=== PATIENT | male | born 1950 | race Caucasian/White ===

== ENCOUNTER 2018-11-17 21:47 | Emergency (ER) | payer MEDICARE, MEDICAID, OTHER ==
[~2018-11-17] VITALS: Ht 167.6 cm; Wt 68.2 kg
[2018-11-17 22:16] LABS: BASOPHILS # (AUTO) 0.1 X10'3 (0-0.2); BASOPHILS % (AUTO) 0.7 % (0-1); EOSINOPHILS # (AUTO) 0.2 X10'3 (0-0.9); EOSINOPHILS % (AUTO) 2.1 % (0-6); HEMATOCRIT 44.1 % (42.0-52.0); HEMOGLOBIN 14.5 g/dl (14.0-17.9); LYMPHOCYTES # (AUTO) 1.4 X10'3 (1.1-4.8); LYMPHOCYTES % (AUTO) 19.8 % (21-51); MEAN CORPUSCULAR HEMOGLOBIN 32.4 PG (27.0-31.0); MEAN CORPUSCULAR HGB CONC 32.8 g/dL (33.0-36.5); MEAN CORPUSCULAR VOLUME 98.8 FL (78-98); MEAN PLATELET VOLUME 7.5 FL (7.4-10.4); MONOCYTES # (AUTO) 0.7 X10'3 (0-0.9); MONOCYTES % (AUTO) 9.3 % (2-12); NEUTROPHILS # (AUTO) 4.9 X10'3 (1.8-7.7); NEUTROPHILS % (AUTO) 68.1 % (42-75); PLATELET COUNT 236 X10'3 (140-440); RED BLOOD COUNT 4.46 X10'6 (4.70-6.10); RED CELL DISTRIBUTION WIDTH 15.5 % (11.5-14.5); WHITE BLOOD COUNT 7.2 X10'3 (4.5-11.0)
[2018-11-17 22:34] LABS: PARTIAL THROMBOPLASTIN TIME 26 SECONDS (22-32)
[2018-11-17] MEDS ORDERED: methylPREDNISolone sod succ 125mg/2ml vial IV ONE (22:40)
[2018-11-17] MEDS ORDERED: ipratropium/albuterol 3ml nebule NEB ONE (22:40)
[2018-11-17] MEDS ORDERED: normal saline 1000ML IV soln IVB ONE ×2 (22:40→23:40)
[2018-11-17 22:41] LABS: ANION GAP 4 (8-16); BLOOD UREA NITROGEN 12 MG/DL (7-18); BUN/CREATININE RATIO 15.2 (5.4-32.0); CALCIUM 7.8 MG/DL (8.5-10.1); CHLORIDE 108 MMOL/L (99-107); CREATININE 0.79 MG/DL (0.60-1.10); GLUCOSE 147 MG/DL (70-104); POTASSIUM 3.6 MMOL/L (3.5-5.1); SODIUM 146 MMOL/L (135-145); TOTAL CARBON DIOXIDE 34.2 MMOL/L (24-32); eGFR > 90 ML/MIN
[2018-11-17 22:42] LABS: ALANINE AMINOTRANSFERASE 37 U/L (12-78); ALBUMIN 3.4 G/DL (3.4-5.0); ALBUMIN/GLOBULIN RATIO 1.1 (1.1-1.5); ALKALINE PHOSPHATASE 63 IU/L (46-116); ASPARTATE AMINO TRANSFERASE 18 U/L (10-37); TOTAL PROTEIN 6.4 G/DL (6.4-8.2)
--- NOTE | 2018-11-18 00:49 | NUR ---
CONTACTED [facility] WHO WILL SEND SOMEONE WITH A PORTABLE O2 FOR PT.
[2018-11-18 02:03] VITALS: BP 149/81
== END 2018-11-18 02:05 | disposition home or self-care (01) ==
LOC: ER 21:48
DX: G43.909 Migraine, unspecified, not intractable, without status migrainosus (principal); J43.9 Emphysema, unspecified; F12.90 Cannabis use, unspecified, uncomplicated; M81.0 Age-related osteoporosis without current pathological fracture; Z98.890 Other specified postprocedural states; Z88.8 Allergy status to other drugs, medicaments and biological substances; Y04.0XXA Assault by unarmed brawl or fight, initial encounter; Y93.89 Activity, other specified; Y92.89 Other specified places as the place of occurrence of the external cause; Y99.8 Other external cause status
CPT/HCPCS: 36415; 70450; 71045; 80053; 84484; 85025; 85610; 85730; 93005; 94640; 94760; 96374; 99284; J2930; J7030

== ENCOUNTER 2019-05-18 22:19 | Inpatient (IN) | payer MEDICARE, MEDICAID ==
[~2019-05-18] VITALS: Ht 177.8 cm; Wt 86.0 kg
[2019-05-18 22:45] LABS: ABG BASE EXCESS 4.3 mmol/L (-2.0-3.0); ABG OXYGEN SATURATION 98.3 % (95-98); ABG PCO2 (T) 96.2 mmHg (35.0-45.0); ABG PH (T) 7.191 (7.350-7.450); ABG PO2 (T) 132.3 mmHg (83-108); FCOHb 2.1 % (0.5-1.5); FMetHb 0.2 % (0.3-1.12); MINUTE VOLUME 13 L/min; RESPIRATORY RATE 12 b/min; RESPIRATORY RATE (OBSERVED) 35 b/min; TOTAL HEMOGLOBIN 14.1 G/dl (14.0-17.9)
[2019-05-18] MEDS ORDERED: ondansetron/PF 4mg/2ml inj IV ONE (22:45)
[2019-05-18 22:57] LABS: BASOPHILS # (AUTO) 0.1 X10'3 (0-0.2); BASOPHILS % (AUTO) 0.5 % (0-1); EOSINOPHILS # (AUTO) 0.1 X10'3 (0-0.9); EOSINOPHILS % (AUTO) 0.9 % (0-6); HEMATOCRIT 41.4 % (42.0-52.0); HEMOGLOBIN 13.5 g/dl (14.0-17.9); LYMPHOCYTES # (AUTO) 1.8 X10'3 (1.1-4.8); LYMPHOCYTES % (AUTO) 16.3 % (21-51); MEAN CORPUSCULAR HEMOGLOBIN 31.3 PG (27.0-31.0); MEAN CORPUSCULAR HGB CONC 32.7 g/dL (33.0-36.5); MEAN PLATELET VOLUME 7.3 FL (7.4-10.4); MONOCYTES # (AUTO) 1.1 X10'3 (0-0.9); MONOCYTES % (AUTO) 9.5 % (2-12); NEUTROPHILS # (AUTO) 8.2 X10'3 (1.8-7.7); NEUTROPHILS % (AUTO) 72.8 % (42-75); PLATELET COUNT 294 X10'3 (140-440); RED BLOOD COUNT 4.31 X10'6 (4.70-6.10); RED CELL DISTRIBUTION WIDTH 15.4 % (11.5-14.5); WHITE BLOOD COUNT 11.2 X10'3 (4.5-11.0)
[2019-05-18 23:07] LABS: ALANINE AMINOTRANSFERASE 28 U/L (12-78); ALBUMIN 3.5 G/DL (3.4-5.0); ALKALINE PHOSPHATASE 97 IU/L (46-116); ANION GAP 5 (8-16); ASPARTATE AMINO TRANSFERASE 22 U/L (10-37); BILIRUBIN,TOTAL 0.5 MG/DL (0.1-1.0); BLOOD UREA NITROGEN 9 MG/DL (7-18); CALCIUM 8.5 MG/DL (8.5-10.1); CHLORIDE 103 MMOL/L (99-107); GLUCOSE 141 MG/DL (70-104); POTASSIUM 4.1 MMOL/L (3.5-5.1); SODIUM 142 MMOL/L (135-145); TOTAL CARBON DIOXIDE 34.1 MMOL/L (24-32); TOTAL PROTEIN 7.1 G/DL (6.4-8.2); eGFR > 90 ML/MIN
[2019-05-18] MEDS ORDERED: CefTRIAXone/D5W-Rocephin 1gm 50 ML IV ONE (23:20)
[2019-05-18] MEDS ORDERED: azithromycin/NS 500mg/250ml 250 ML IV ONE (23:20)
[2019-05-18] MEDS ORDERED: methylPREDNISolone sod succ 125mg/2ml vial IV ONE (23:20)
[2019-05-18] MEDS ORDERED: normal saline 1000ml 1,000 ML IV ONE (23:20)
[2019-05-18] MEDS ORDERED: proCHLORperazine 10 MG/2 ml inj IV ONE (23:20)
[2019-05-18] MEDS ORDERED: ketorolac trometh. 30mg/ml inj. IV ONE (23:20)
[2019-05-18] MEDS ORDERED: SUMAtriptan succ. 6 MG/0.5ml vial SQ ONE (23:20)
--- NOTE | 2019-05-18 23:45 | NUR ---
RT AT BEDSIDE FOR 2ND ABG. PT HAS BEEN ON BIPAP FOR APROX 1 HR.HR 108, ST ON MONITOR WITH PVCS.
[2019-05-18 23:55] LABS: ABG BASE EXCESS 2.8 mmol/L (-2.0-3.0); ABG HCO3 33.4 mmol/L (22.0-26.0); ABG PCO2 (T) 86.3 mmHg (35.0-45.0); ABG PH (T) 7.206 (7.350-7.450); ABG PO2 (T) 75.6 mmHg (83-108); ALLEN'S TEST Positive; FCOHb 1.9 % (0.5-1.5); FMetHb 0.2 % (0.3-1.12); MINUTE VOLUME 15 L/min; RESPIRATORY RATE 16 b/min; RESPIRATORY RATE (OBSERVED) 35 b/min; TOTAL HEMOGLOBIN 13.5 G/dl (14.0-17.9)
[2019-05-19] MEDS ORDERED: UNABLE TO OBTAIN (00:13)
--- NOTE | 2019-05-19 00:13 | NUR ---
PT STATES [facility] DOES NOT KNOW WHAT HIS CURRENT MEDS ARE BUT THAT HE TAKES HIS MEDS REGULARLY. STATES [facility]ILL[facility] AND AT [facility]. UNBABLE TO COMPLETED MED REC DUE TO THIS.
--- NOTE | 2019-05-19 01:01 | NUR ---
DR OHCOA AT BEDSIDE FOR ADMISSION. UPDATED OF PTS MED REC DELAY PT UNSURE OF HIS CURRENT MEDS. PT REMAINS ON BIPAP AT 35%
--- NOTE | 2019-05-19 01:14 | NUR ---
Pt wanted bipap mask off so he could rinse out his mouth and drink some water. Taken off for 5 minutes to do this. bipap remains at 35% fio2, at 22/5 settings
[2019-05-19] MEDS: normal saline 1000ml 1,000 ML IV SCH (01:46)
[2019-05-19] MEDS ORDERED: albuterol 2.5 MG/3 ML nebule NEB PRN (01:50)
[2019-05-19] MEDS ORDERED: magnesium hydroxide 30ml (MOM) UD suspension PO PRN (01:50)
[2019-05-19] MEDS ORDERED: mag hydrox/Alum hydrox/simeth 30ml oral suspension PO PRN (01:50)
--- NOTE | 2019-05-19 03:19 | NUR ---
Pt placed on hospital bed. Able to stand with sba, but is weak upon standing. Voiding in urinal 200 cc's light ahsan urine. current vss. 35% fia2 on bipap.
[2019-05-19 03:36] LABS: ABG BASE EXCESS 1.2 mmol/L (-2.0-3.0); ABG HCO3 32.3 mmol/L (22.0-26.0); ABG OXYGEN SATURATION 92.7 % (95-98); ABG PH (T) 7.182 (7.350-7.450); ABG PO2 (T) 69.3 mmHg (83-108); ALLEN'S TEST Positive; FCOHb 1.8 % (0.5-1.5); FMetHb 0.2 % (0.3-1.12); FO2Hb 90.8 % (94-100); MINUTE VOLUME 14 L/min; RESPIRATORY RATE 16 b/min; RESPIRATORY RATE (OBSERVED) 25 b/min; TOTAL HEMOGLOBIN 13.6 G/dl (14.0-17.9)
[2019-05-19 05:01] LABS: ABG BASE EXCESS 2.4 mmol/L (-2.0-3.0); ABG HCO3 32.8 mmol/L (22.0-26.0); ABG OXYGEN SATURATION 93.9 % (95-98); ABG PCO2 (T) 83.4 mmHg (35.0-45.0); ABG PH (T) 7.212 (7.350-7.450); ALLEN'S TEST Positive; FCOHb 1.4 % (0.5-1.5); FMetHb 0.1 % (0.3-1.12); FO2Hb 92.5 % (94-100); MINUTE VOLUME 14 L/min; RESPIRATORY RATE 20 b/min; RESPIRATORY RATE (OBSERVED) 23 b/min; TOTAL HEMOGLOBIN 13.3 G/dl (14.0-17.9)
--- NOTE | 2019-05-19 05:22 | NUR ---
Dr. Ocasio at bedside after 4th abg resulted. He is consulting with Dr. Marshall and will consult with Dameon Collado, [employer]. Pt RR 24. Remains on bipap @ 35%.
--- NOTE | 2019-05-19 06:58 | NUR ---
received report from JUSTEN Zee RN
[2019-05-19] MEDS ORDERED: methylPREDNISolone sod succ/PF 40mg inj. IV SCH (08:00)
[2019-05-19] MEDS ORDERED: magnesium 4gm in 100ml NS 100 ML IV PRN (09:10)
[2019-05-19] MEDS ORDERED: potassium CL 10mEq/100ml bag 100 ML IV PRN (09:10)
[2019-05-19] MEDS ORDERED: magnesium Cl slow-release 64mg tablet PO PRN (09:10)
[2019-05-19] MEDS ORDERED: potassium Cl 20 mEq SR tablet PO PRN ×2 (09:10)
[2019-05-19] MEDS ORDERED: VANCOmycin 1250MG/NS 250ml Bag 250 ML IV SCH (09:19)
[2019-05-19 09:30] VITALS: BP 122/68
[2019-05-19] MEDS: heparin, porcine 5000 units/ml vial SQ SCH ×2 (09:39→20:10)
[2019-05-19] MEDS: pantoprazole 40mg Tablet.DR PO SCH (09:39)
[2019-05-19] MEDS: acetaminophen 325mg tablet PO PRN (09:40)
[2019-05-19] MEDS: piperacillin/tazo 3.375gm/50ml 50 ML IV SCH ×2 (09:40→17:17)
[2019-05-19] MEDS ORDERED: iohexol 350MG/ML 100ml bottle IV ONE (10:25)
[2019-05-19 11:00] VITALS: BP 125/65
[2019-05-19] MEDS: ipratropium/albuterol 3ml nebule NEB SCH ×4 (11:36→23:37)
[2019-05-19 11:45] LABS: ABG BASE EXCESS 7.1 mmol/L (-2.0-3.0); ABG HCO3 36.8 mmol/L (22.0-26.0); ABG OXYGEN SATURATION 93.1 % (95-98); ABG PCO2 (T) 80.6 mmHg (35.0-45.0); ABG PH (T) 7.277 (7.350-7.450); ABG PO2 (T) 66.9 mmHg (83-108); ALLEN'S TEST Positive; FLOW 4 L/min; FMetHb 0.2 % (0.3-1.12); RESPIRATORY RATE (OBSERVED) 22 b/min; TOTAL HEMOGLOBIN 13.2 G/dl (14.0-17.9)
--- NOTE | 2019-05-19 11:51 | NUR ---
[phone] MESSAGE: German Thomas Rm 3012B Pc02 80.6 mmhg he refuses Bipap. SERGEY Barrera [phone]
[2019-05-19] MEDS: azithromycin/NS 500mg/250ml 250 ML IV SCH (12:06)
[2019-05-19] MEDS: methylPREDNISolone sod succ 125mg/2ml vial IV SCH ×2 (13:53→20:09)
--- NOTE | 2019-05-19 14:05 | NUR ---
[id number] MESSAGE: German Thomas Rm 3012B needs MD order for BiPaP. He denied using at first, but has reconsidered. SERGEY Barrera ext [phone]
[2019-05-19 15:00] VITALS: BP 122/65
[2019-05-19 18:00] VITALS: BP 128/80
--- NOTE | 2019-05-19 18:54 | NUR ---
Patient in room PCU 3012B. I have received report from SERGEY Haddad and had the opportunity to ask questions and assume patient care. Patient denies CP, SOB, dizziness, n/v, and rated pain 0/10.
--- NOTE | 2019-05-19 18:54 | NUR ---
Problems reprioritized. Patient report given, questions answered & plan of care reviewed with SERGEY Frias.
[2019-05-19] MEDS: lactobacillus rhamnosus 10,000 MMU CELLS/CAPSULE PO SCH (20:10)
[2019-05-19 22:00] VITALS: BP 107/60
[2019-05-19] MEDS ORDERED: CefTRIAXone/D5W-Rocephin 1gm 50 ML IV SCH (23:00)
[2019-05-20] MEDS: VANCOmycin 1250MG/NS 250ml Bag 250 ML IV SCH ×3 (00:01→15:34)
[2019-05-20] MEDS: piperacillin/tazo 3.375gm/50ml 50 ML IV SCH ×3 (01:02→17:12)
[2019-05-20 02:00] VITALS: BP 99/53
[2019-05-20] MEDS: methylPREDNISolone sod succ 125mg/2ml vial IV SCH ×4 (02:17→21:05)
[2019-05-20] MEDS: normal saline 1000ml 1,000 ML IV SCH (02:46)
[2019-05-20] MEDS: ipratropium/albuterol 3ml nebule NEB SCH ×6 (03:35→23:00)
[2019-05-20 06:00] VITALS: BP 119/67
--- NOTE | 2019-05-20 06:06 | NUR ---
Patient in room PCU 3012. I have received report from SERGEY Frias and had the opportunity to ask questions and assume patient care.
--- NOTE | 2019-05-20 06:21 | NUR ---
Problems reprioritized. Patient report given, questions answered & plan of care reviewed with SERGEY Haddad. Patient stable at shift change
[2019-05-20 06:26] LABS: BASOPHILS % (AUTO) 0.1 % (0-1); EOSINOPHILS % (AUTO) 0 % (0-6); HEMATOCRIT 33.7 % (42.0-52.0); HEMOGLOBIN 11.2 g/dl (14.0-17.9); LYMPHOCYTES # (AUTO) 0.4 X10'3 (1.1-4.8); LYMPHOCYTES % (AUTO) 7.2 % (21-51); MEAN CORPUSCULAR HEMOGLOBIN 31.6 PG (27.0-31.0); MEAN CORPUSCULAR HGB CONC 33.3 g/dL (33.0-36.5); MEAN CORPUSCULAR VOLUME 94.9 FL (78-98); MEAN PLATELET VOLUME 7.9 FL (7.4-10.4); MONOCYTES # (AUTO) 0.3 X10'3 (0-0.9); MONOCYTES % (AUTO) 5.7 % (2-12); NEUTROPHILS # (AUTO) 5.3 X10'3 (1.8-7.7); PLATELET COUNT 278 X10'3 (140-440); RED BLOOD COUNT 3.56 X10'6 (4.70-6.10); RED CELL DISTRIBUTION WIDTH 14.9 % (11.5-14.5)
[2019-05-20 07:06] LABS: ABG HCO3 38.6 mmol/L (22.0-26.0); ABG OXYGEN SATURATION 96.3 % (95-98); ABG PCO2 (T) 53.6 mmHg (35.0-45.0); ABG PH (T) 7.475 (7.350-7.450); ABG PO2 (T) 72.1 mmHg (83-108); ALLEN'S TEST Positive; FCOHb 0.1 % (0.5-1.5); FMetHb 0.1 % (0.3-1.12); FO2Hb 96.1 % (94-100); RESPIRATORY RATE 16 b/min; RESPIRATORY RATE (OBSERVED) 19 b/min; TIDAL VOLUME 940 mL; TOTAL HEMOGLOBIN 12.1 G/dl (14.0-17.9)
[2019-05-20 07:09] LABS: ALANINE AMINOTRANSFERASE 25 U/L (12-78); ALBUMIN 2.7 G/DL (3.4-5.0); ALBUMIN/GLOBULIN RATIO 0.8 (1.1-1.5); ALKALINE PHOSPHATASE 74 IU/L (46-116); ANION GAP 4 (8-16); ASPARTATE AMINO TRANSFERASE 13 U/L (10-37); BILIRUBIN,TOTAL 0.3 MG/DL (0.1-1.0); BLOOD UREA NITROGEN 13 MG/DL (7-18); CALCIUM 8.2 MG/DL (8.5-10.1); CHLORIDE 103 MMOL/L (99-107); GLUCOSE 144 MG/DL (70-104); MAGNESIUM 1.7 MG/DL (1.5-2.4); PHOSPHORUS 1.3 MG/DL (2.3-4.5); POTASSIUM 4.1 MMOL/L (3.5-5.1); SODIUM 144 MMOL/L (135-145); TOTAL CARBON DIOXIDE 36.6 MMOL/L (24-32); TOTAL PROTEIN 5.9 G/DL (6.4-8.2); eGFR > 90 ML/MIN
[2019-05-20] MEDS ORDERED: VANCOMYCIN LEVEL IV ONE ×2 (07:30→23:30)
[2019-05-20] MEDS: lactobacillus rhamnosus 10,000 MMU CELLS/CAPSULE PO SCH ×2 (07:37→21:04)
[2019-05-20] MEDS: heparin, porcine 5000 units/ml vial SQ SCH ×2 (07:37→21:05)
[2019-05-20] MEDS: pantoprazole 40mg Tablet.DR PO SCH (07:37)
[2019-05-20] MEDS: ondansetron/PF 4mg/2ml inj IV PRN ×2 (07:49→17:54)
[2019-05-20] MEDS: acetaminophen 325mg tablet PO PRN (10:17)
[2019-05-20 11:00] VITALS: BP 129/71
[2019-05-20] MEDS: azithromycin/NS 500mg/250ml 250 ML IV SCH (11:39)
[2019-05-20] MEDS ORDERED: SUMAtriptan 25 MG tablet PO ONE (12:40)
[2019-05-20 15:00] VITALS: BP 146/90
[2019-05-20 18:00] VITALS: BP 155/77
[2019-05-20] MEDS ORDERED: Melatonin 3mg tablet PO SCH (21:00)
[2019-05-20] MEDS: SUMAtriptan 25 MG tablet PO PRN (21:04)
[2019-05-21] MEDS: VANCOmycin 1250MG/NS 250ml Bag 250 ML IV SCH (00:21)
--- NOTE | 2019-05-21 00:56 | NUR ---
Paged RT The message has been submitted for processing.
[2019-05-21] MEDS: piperacillin/tazo 3.375gm/50ml 50 ML IV SCH ×2 (02:00→09:48)
[2019-05-21] MEDS: methylPREDNISolone sod succ 125mg/2ml vial IV SCH ×3 (02:24→13:54)
--- NOTE | 2019-05-21 03:42 | NUR ---
Patient refused the 2200 and 0200 vital signs. Patient has been belligerent during shift
[2019-05-21] MEDS: normal saline 1000ml 1,000 ML IV SCH (03:46)
[2019-05-21 05:58] LABS: BASOPHILS % (AUTO) 0 % (0-1); EOSINOPHILS % (AUTO) 0 % (0-6); HEMOGLOBIN 11.3 g/dl (14.0-17.9); LYMPHOCYTES # (AUTO) 0.5 X10'3 (1.1-4.8); LYMPHOCYTES % (AUTO) 7.1 % (21-51); MEAN CORPUSCULAR HEMOGLOBIN 31.7 PG (27.0-31.0); MEAN CORPUSCULAR HGB CONC 33.3 g/dL (33.0-36.5); MEAN CORPUSCULAR VOLUME 95.1 FL (78-98); MEAN PLATELET VOLUME 7.6 FL (7.4-10.4); MONOCYTES # (AUTO) 0.4 X10'3 (0-0.9); MONOCYTES % (AUTO) 5.5 % (2-12); NEUTROPHILS # (AUTO) 6.5 X10'3 (1.8-7.7); NEUTROPHILS % (AUTO) 87.4 % (42-75); PLATELET COUNT 288 X10'3 (140-440); RED BLOOD COUNT 3.57 X10'6 (4.70-6.10); RED CELL DISTRIBUTION WIDTH 14.9 % (11.5-14.5); WHITE BLOOD COUNT 7.5 X10'3 (4.5-11.0)
[2019-05-21 06:00] VITALS: BP 129/72
--- NOTE | 2019-05-21 06:00 | NUR ---
Patient in room PCU 3014. I have received report from Rodriguez RINCON and had the opportunity to ask questions and assume patient care. Patient awake, alert and sitting at bedside at shift change. Patient requested to come off Bipap so he could drink his coffee. Patient was placed on 3.5LNC oxygen and offered no complaints at this time. Will continue to monitor
--- NOTE | 2019-05-21 06:15 | NUR ---
Patient finished coffee and requested to be back on Bipap, patient is currently on Bipap and resting, will continue to monitor.
--- NOTE | 2019-05-21 06:41 | NUR ---
Problems reprioritized. Patient report given, questions answered & plan of care reviewed with Julieth Keane Patient stable at shift change
[2019-05-21] MEDS: ipratropium/albuterol 3ml nebule NEB SCH ×2 (06:52→10:19)
[2019-05-21 07:27] LABS: ALANINE AMINOTRANSFERASE 40 U/L (12-78); ALBUMIN 2.7 G/DL (3.4-5.0); ALBUMIN/GLOBULIN RATIO 0.9 (1.1-1.5); ALKALINE PHOSPHATASE 70 IU/L (46-116); ANION GAP 2 (8-16); ASPARTATE AMINO TRANSFERASE 19 U/L (10-37); BILIRUBIN,TOTAL 0.3 MG/DL (0.1-1.0); BLOOD UREA NITROGEN 10 MG/DL (7-18); BUN/CREATININE RATIO 19.6 (5.4-32.0); CALCIUM 8.1 MG/DL (8.5-10.1); CHLORIDE 105 MMOL/L (99-107); CREATININE 0.51 MG/DL (0.60-1.10); GLUCOSE 147 MG/DL (70-104); MAGNESIUM 1.8 MG/DL (1.5-2.4); POTASSIUM 4.1 MMOL/L (3.5-5.1); SODIUM 147 MMOL/L (135-145); TOTAL CARBON DIOXIDE 39.7 MMOL/L (24-32); TOTAL PROTEIN 5.7 G/DL (6.4-8.2); eGFR > 90 ML/MIN
[2019-05-21] MEDS: ondansetron/PF 4mg/2ml inj IV PRN (08:03)
[2019-05-21] MEDS: lactobacillus rhamnosus 10,000 MMU CELLS/CAPSULE PO SCH (08:44)
[2019-05-21] MEDS: heparin, porcine 5000 units/ml vial SQ SCH (08:44)
[2019-05-21] MEDS: azithromycin/NS 500mg/250ml 250 ML IV SCH (08:44)
[2019-05-21] MEDS: pantoprazole 40mg Tablet.DR PO SCH (08:50)
[2019-05-21] MEDS: SUMAtriptan 25 MG tablet PO PRN ×2 (08:56→14:42)
--- NOTE | 2019-05-21 10:10 | NUR ---
Rm [id number]. Patient would like a breathing trxt please. Thank you.
[2019-05-21 11:00] VITALS: BP 138/81
--- NOTE | 2019-05-21 12:17 | NUR ---
Spoke with Dr. Cloud at nurses station, patient will be discharged today. No new orders obtained.
[2019-05-21] MEDS ORDERED: AZIT500T9 PO (14:52)
[2019-05-21] MEDS ORDERED: PANT40TA4 PO (14:52)
[2019-05-21] MEDS ORDERED: ALBU8.5H8 INH (14:52)
[2019-05-21] MEDS ORDERED: BUDE10.22 INH (14:52)
[2019-05-21] MEDS ORDERED: AMOX-580 PO (14:52)
[2019-05-21] MEDS ORDERED: LACT1CAP26 PO (14:52)
[2019-05-21] MEDS ORDERED: MELA3TAB64 PO (14:52)
[2019-05-21] MEDS ORDERED: PRED10TA23 PO (14:52)
[2019-05-21 15:00] VITALS: BP 165/81
--- NOTE | 2019-05-21 15:30 | NUR ---
Patient agitated about being discharged and concerned with medications. Spoke with Dr. Cloud and the patient is medically stable to be discharged and all medications have been ordered and called in to [facility]. CRN came in and spoke with patient to help alleviate the agitation. Patient is awaiting oxygen delivery and cab for discharge.
[2019-05-21] MEDS ORDERED: IPRA3AMP31 IH (15:37)
--- NOTE | 2019-05-21 16:42 | NUR ---
[facility]. Patient reviewed discharge packet and instructions before signing. All belongings were sent home with patient and medications were called in to [facility] on [address] per patient request. PIV was removed with cannula intact, media monitor was removed, oxygen was delivered and patient was wheeled down by staff and left via cab. Patient was alert, oriented and ambulatory upon discharge.
[2019-05-22] MEDS ORDERED: VANCOMYCIN LEVEL IV ONE (15:30)
--- NOTE | 2019-05-23 10:15 | NUR ---
Case Management DC follow up: Spoke to pt. Pt had issues r/t picking up medications. Difficult to redirect pt to subject because he goes off-topic to other issues in his life, past/present. Pt gets agitated easily. PCP listed as Dr Reyes in [facility]. Pt states he gets Rx meds through [facility]. shows meds were ordered with Irena Lema/Jessica Dias as they are 30/11. However, [facility] only allows certain pharmacy's for Rx picker and packer. [facility] is one of them from what I could gather from pt, so his meds had to be picked up in [facility] from what I could understand. pt had to travel 30 miles to get meds at [facility]. I advised pt to call PCP provider or [place]'s to change the picker and packer to a [facility] closer. pt did not seem to grasp that concept. the only questions he had was about why [facility] cannot understand this info. he knows what his meds are and why they are prescribed. Pt just has a hard time getting his initial point across. Gave all info to pt, pt was not receptive to complying, just repeating his issues with medication picker and packer. Addendum: 05/23/19 at 1024 by Lois Crowe RN I was unable to get an answer from patient r/t follow up Dr ayala, but pt was given all info needed, several times.
== END 2019-05-21 16:39 | disposition home or self-care (01) | DRG 193 ==
LOC: ER 22:19 → ED HOLD 05-19 02:42 → PCU 3S 05-19 07:34
PROVIDERS: ADMIT Internal Medicine; ATTEND Family Medicine
PROC: 5A09357 Assistance with Respiratory Ventilation, Less than 24 Consecutive Hours, Continuous Positive Airway Pressure (ICD-10-PCS; principal; 2019-05-18)
PROC: 5A09357 Assistance with Respiratory Ventilation, Less than 24 Consecutive Hours, Continuous Positive Airway Pressure (ICD-10-PCS; 2019-05-19)
PROC: B32T1ZZ Computerized Tomography (CT Scan) of Left Pulmonary Artery using Low Osmolar Contrast (ICD-10-PCS; 2019-05-19)
PROC: B3201ZZ Computerized Tomography (CT Scan) of Thoracic Aorta using Low Osmolar Contrast (ICD-10-PCS; 2019-05-19)
PROC: B32S1ZZ Computerized Tomography (CT Scan) of Right Pulmonary Artery using Low Osmolar Contrast (ICD-10-PCS; 2019-05-19)
PROC: 5A09357 Assistance with Respiratory Ventilation, Less than 24 Consecutive Hours, Continuous Positive Airway Pressure (ICD-10-PCS; 2019-05-20)
PROC: 5A09357 Assistance with Respiratory Ventilation, Less than 24 Consecutive Hours, Continuous Positive Airway Pressure (ICD-10-PCS; 2019-05-21)
DX: J18.9 Pneumonia, unspecified organism (principal); J96.20 Acute and chronic respiratory failure, unspecified whether with hypoxia or hypercapnia; J44.1 Chronic obstructive pulmonary disease with (acute) exacerbation; E87.2 Acidosis; J44.0 Chronic obstructive pulmonary disease with (acute) lower respiratory infection; F12.90 Cannabis use, unspecified, uncomplicated; G43.909 Migraine, unspecified, not intractable, without status migrainosus; F17.200 Nicotine dependence, unspecified, uncomplicated; M81.0 Age-related osteoporosis without current pathological fracture; Z86.73 Personal history of transient ischemic attack (TIA), and cerebral infarction without residual deficits; Z99.81 Dependence on supplemental oxygen; Z88.8 Allergy status to other drugs, medicaments and biological substances
CPT/HCPCS: 36415; 36600; 71045; 71275; 80053; 80202; 82803; 83605; 83735; 84100; 84145; 84484; 85018; 85025; 87040; 92508; 92616; 93005; 94640; 94660; 94667; 94668; 94760; 99285; G0378; J0456; J0696; J0780; J1644; J1885; J2405; J2543; J2930; J3030; J3370; J7030; Q9967

== ENCOUNTER 2019-06-06 14:41 | Inpatient (IN) | payer MEDICAID, MEDICARE, OTHER ==
[~2019-06-06] VITALS: Ht 188 cm; Wt 67.4 kg
[~2019-06-06 14:41] MED LIST: ALBU8.5H8 INH; AMOX-580 PO; AZIT500T9 PO; BUDE10.22 INH; IPRA3AMP31 IH; LACT1CAP26 PO; MELA3TAB64 PO; PANT40TA4 PO; PRED10TA23 PO
[2019-06-06] MEDS ORDERED: methylPREDNISolone sod succ 125mg/2ml vial IV ONE ×2 (14:55→15:10)
[2019-06-06] MEDS ORDERED: ipratropium/albuterol 3ml nebule NEB ONE (14:55)
[2019-06-06] MEDS ORDERED: normal saline 1000ML IV soln IVB ONE (14:55)
[2019-06-06] MEDS ORDERED: LORazepam 2 mg/ml vial IV ONE (15:05)
[2019-06-06] MEDS ORDERED: albuterol 2.5 MG/3 ML nebule CONTNEB PRN (15:05)
[2019-06-06] MEDS ORDERED: magnesium 2GM in 50ml NS 50 ML IV ONE (15:10)
[2019-06-06 15:11] LABS: BASOPHILS # (AUTO) 0.1 X10'3 (0-0.2); BASOPHILS % (AUTO) 0.8 % (0-1); EOSINOPHILS # (AUTO) 0.1 X10'3 (0-0.9); EOSINOPHILS % (AUTO) 0.5 % (0-6); HEMATOCRIT 43.1 % (42.0-52.0); HEMOGLOBIN 14.1 g/dl (14.0-17.9); LYMPHOCYTES # (AUTO) 1.6 X10'3 (1.1-4.8); LYMPHOCYTES % (AUTO) 13.8 % (21-51); MEAN CORPUSCULAR HEMOGLOBIN 30.8 PG (27.0-31.0); MEAN CORPUSCULAR HGB CONC 32.8 g/dL (33.0-36.5); MEAN CORPUSCULAR VOLUME 93.9 FL (78-98); MEAN PLATELET VOLUME 7.3 FL (7.4-10.4); MONOCYTES % (AUTO) 8.2 % (2-12); NEUTROPHILS # (AUTO) 8.9 X10'3 (1.8-7.7); NEUTROPHILS % (AUTO) 76.7 % (42-75); PLATELET COUNT 366 X10'3 (140-440); RED BLOOD COUNT 4.59 X10'6 (4.70-6.10); RED CELL DISTRIBUTION WIDTH 15.9 % (11.5-14.5); WHITE BLOOD COUNT 11.6 X10'3 (4.5-11.0)
[2019-06-06 15:24] LABS: PARTIAL THROMBOPLASTIN TIME 28 SECONDS (22-32)
[2019-06-06 15:25] LABS: ALANINE AMINOTRANSFERASE 19 U/L (12-78); ALBUMIN/GLOBULIN RATIO 1.1 (1.1-1.5); ALKALINE PHOSPHATASE 121 IU/L (46-116); ANION GAP 6 (8-16); ASPARTATE AMINO TRANSFERASE 14 U/L (10-37); BILIRUBIN,TOTAL 0.9 MG/DL (0.1-1.0); BLOOD UREA NITROGEN 8 MG/DL (7-18); BUN/CREATININE RATIO 15.1 (5.4-32.0); CALCIUM 8.8 MG/DL (8.5-10.1); CHLORIDE 105 MMOL/L (99-107); CREATININE 0.53 MG/DL (0.60-1.10); GLUCOSE 121 MG/DL (70-104); POTASSIUM 4.8 MMOL/L (3.5-5.1); SODIUM 146 MMOL/L (135-145); TOTAL CARBON DIOXIDE 35.5 MMOL/L (24-32); TOTAL PROTEIN 7.6 G/DL (6.4-8.2); eGFR > 90 ML/MIN
[2019-06-06] MEDS ORDERED: etomidate 2mg/ml inj. ONE (16:00)
[2019-06-06] MEDS ORDERED: rocuronium bromide 100mg/10ml (10mg/ml) injection IV ONE (16:00)
[2019-06-06 16:10] LABS: ABG HCO3 28.8 mmol/L (22.0-26.0); ABG PCO2 (T) 79.6 mmHg (35.0-45.0); ABG PH (T) 7.176 (7.350-7.450); ABG PO2 (T) 62.2 mmHg (83-108); ALLEN'S TEST POSITIVE; FCOHb 2.6 % (0.5-1.5); FMetHb 0.1 % (0.3-1.12); FO2Hb 86.6 % (94-100); RESPIRATORY RATE 18 b/min; TIDAL VOLUME 414 mL; TOTAL HEMOGLOBIN 14.7 G/dl (14.0-17.9)
--- NOTE | 2019-06-06 16:11 | NUR ---
dr. rodríguez at bedside, getting ready to intubate
[2019-06-06] MEDS ORDERED: etomidate 2mg/ml inj. IV ONE (16:25)
[2019-06-06] MEDS ORDERED: rocuronium 10mg/ml inj IV ONE (16:30)
[2019-06-06] MEDS ORDERED: SUMA100T16 PO (16:55)
[2019-06-06] MEDS ORDERED: TOPI25TA49 PO (16:55)
[2019-06-06] MEDS ORDERED: propofol 1000mg/100ml bottle 100 ML IV SCH (16:56)
[2019-06-06] MEDS ORDERED: ALBU2.5V10 INH (16:58)
[2019-06-06] MEDS ORDERED: BUDE10.22 INH (17:01)
[2019-06-06] MEDS ORDERED: LACT1CAP65 PO (17:01)
[2019-06-06] MEDS ORDERED: MELA3TAB64 PO (17:01)
[2019-06-06] MEDS ORDERED: IPRA3AMP31 IH (17:01)
[2019-06-06] MEDS ORDERED: PANT-47 PO (17:02)
[2019-06-06] MEDS ORDERED: LACT1CAP26 PO (17:02)
[2019-06-06] MEDS: propofol 1000mg/100ml bottle 100 ML IV SCH (17:08)
[2019-06-06 17:25] LABS: TRIGLYCERIDES 76 MG/DL (20-135)
--- NOTE | 2019-06-06 17:30 | NUR ---
informed dr. rodríguez of bp 60/28 no new orders at this time
--- NOTE | 2019-06-06 17:38 | NUR ---
sores noted on the left side shaft of penis. no drainage noted.
--- NOTE | 2019-06-06 17:49 | NUR ---
bp 71/35. informed dr. rodríguez. ordered ns at 100cc/hr
[2019-06-06] MEDS ORDERED: midazolam 2 mg/2 ml injection IV ONE (17:50)
[2019-06-06] MEDS ORDERED: fentaNYL/PF 50MCG/1 ML 2ML syringe IV PRN (17:50)
[2019-06-06] MEDS ORDERED: potassium Cl 20 mEq SR tablet PO PRN ×2 (17:50)
[2019-06-06] MEDS ORDERED: ipratropium/albuterol 3ml nebule NEB PRN (17:50)
[2019-06-06] MEDS ORDERED: potassium Cl 20mEq/100mL bag 100 ML IV PRN ×2 (17:50)
[2019-06-06] MEDS ORDERED: acetaminophen 325mg tablet PO PRN ×2 (17:50)
[2019-06-06] MEDS ORDERED: ondansetron/PF 4mg/2ml inj IV PRN (17:50)
[2019-06-06] MEDS ORDERED: magnesium hydroxide 30ml (MOM) UD suspension PO PRN (17:50)
[2019-06-06] MEDS ORDERED: potassium CL 10mEq/100ml bag 100 ML IV PRN ×2 (17:50)
[2019-06-06] MEDS ORDERED: normal saline 1000ml 1,000 ML IV ONE (17:53)
[2019-06-06] MEDS: midazolam 100mg in NS 100ml 100 ML IV PRN (18:07)
[2019-06-06] MEDS: FENTANYL-0.9 % NACL/PF 100 ML IV PRN (18:21)
[2019-06-06] MEDS: normal saline 1000ml 1,000 ML IV SCH ×2 (18:28→20:46)
--- NOTE | 2019-06-06 19:40 | NUR ---
Patient in room ICU 2044. I have received report from BRYSON RINCON and had the opportunity to ask questions and assume patient care.
[2019-06-06] MEDS: docusate sod 100mg capsule PO SCH (20:00)
--- NOTE | 2019-06-06 20:00 | NUR ---
pt arrived to bed 2044. pt is intubated and sedated with the et tube at 25 at the teeth. og is to low intermittent suction with yellow gastric drainage. heels, elbows, coccyx intact blanchable free from breakdown. scabs located on pt penis, receiving Zithromax. vital signs stable. will continue to monitor.
[2019-06-06] MEDS: ipratropium/albuterol 3ml nebule NEB SCH ×2 (20:04→23:36)
[2019-06-06 20:30] VITALS: BP 129/63
[2019-06-06] MEDS: methylPREDNISolone sod succ 125mg/2ml vial IV SCH (20:41)
[2019-06-06] MEDS: famotidine/PF 10 mg/ml inj IV SCH (20:41)
[2019-06-06] MEDS: CefTRIAXone/D5W-Rocephin 1gm 50 ML IV SCH (20:41)
[2019-06-06] MEDS: azithromycin/NS 500mg/250ml 250 ML IV SCH (20:46)
[2019-06-06] MEDS: mineral oil/petrolatum ophthal oint EACHEYE SCH (20:46)
[2019-06-06 20:50] LABS: ABG BASE EXCESS 2.6 mmol/L (-2.0-3.0); ABG HCO3 28.9 mmol/L (22.0-26.0); ABG OXYGEN SATURATION 99.2 % (95-98); ABG PCO2 (T) 51.9 mmHg (35.0-45.0); ABG PH (T) 7.365 (7.350-7.450); ABG PO2 (T) 219.1 mmHg (83-108); ALLEN'S TEST POSITIVE; FCOHb 0.9 % (0.5-1.5); FMetHb 0.3 % (0.3-1.12); PATIENT TEMPERATURE 37.3; PEEP 5 cm H2O; RESPIRATORY RATE 22 b/min; TIDAL VOLUME 450 mL; TOTAL HEMOGLOBIN 13.6 G/dl (14.0-17.9)
[2019-06-06] MEDS: sennosides/docusate sodium tablet PO SCH (20:58)
[2019-06-06 21:00] VITALS: BP 135/63
[2019-06-06 21:11] LABS: OXYGEN SATURATION (MIXED VEN) 74.1 % (60-80); PO2 MIXED VENOUS (TEMP COR) 38.1 mmHg (35-46)
[2019-06-06 22:00] VITALS: BP 99/61
[2019-06-06 23:00] VITALS: BP 100/61
[2019-06-07] VITALS (23 sets, daily range): BP systolic 85–107; BP diastolic 37–64
[2019-06-07] MEDS: methylPREDNISolone sod succ 125mg/2ml vial IV SCH ×4 (02:11→19:48)
[2019-06-07 02:30] LABS: BASOPHILS % (AUTO) 0.3 % (0-1); EOSINOPHILS % (AUTO) 0 % (0-6); HEMATOCRIT 36.1 % (42.0-52.0); HEMOGLOBIN 12.1 g/dl (14.0-17.9); LYMPHOCYTES # (AUTO) 0.4 X10'3 (1.1-4.8); LYMPHOCYTES % (AUTO) 8.1 % (21-51); MEAN CORPUSCULAR HEMOGLOBIN 31.4 PG (27.0-31.0); MEAN CORPUSCULAR HGB CONC 33.6 g/dL (33.0-36.5); MEAN CORPUSCULAR VOLUME 93.5 FL (78-98); MEAN PLATELET VOLUME 7.5 FL (7.4-10.4); MONOCYTES # (AUTO) 0.1 X10'3 (0-0.9); MONOCYTES % (AUTO) 1.4 % (2-12); NEUTROPHILS # (AUTO) 3.9 X10'3 (1.8-7.7); NEUTROPHILS % (AUTO) 90.2 % (42-75); PLATELET COUNT 283 X10'3 (140-440); RED BLOOD COUNT 3.86 X10'6 (4.70-6.10); RED CELL DISTRIBUTION WIDTH 15.6 % (11.5-14.5); WHITE BLOOD COUNT 4.3 X10'3 (4.5-11.0)
[2019-06-07 02:39] LABS: ALANINE AMINOTRANSFERASE 15 U/L (12-78); ALBUMIN 2.9 G/DL (3.4-5.0); ALBUMIN/GLOBULIN RATIO 0.9 (1.1-1.5); ALKALINE PHOSPHATASE 97 IU/L (46-116); ANION GAP 6 (8-16); ASPARTATE AMINO TRANSFERASE 13 U/L (10-37); BILIRUBIN,TOTAL 0.7 MG/DL (0.1-1.0); BLOOD UREA NITROGEN 14 MG/DL (7-18); CALCIUM 7.9 MG/DL (8.5-10.1); CHLORIDE 107 MMOL/L (99-107); CREATININE 0.56 MG/DL (0.60-1.10); GLUCOSE 150 MG/DL (70-104); SODIUM 143 MMOL/L (135-145); TOTAL CARBON DIOXIDE 30.4 MMOL/L (24-32); eGFR > 90 ML/MIN
[2019-06-07 02:42] LABS: MAGNESIUM 1.7 MG/DL (1.5-2.4); PHOSPHORUS 3.4 MG/DL (2.3-4.5)
[2019-06-07] MEDS: ipratropium/albuterol 3ml nebule NEB SCH ×6 (03:58→23:14)
[2019-06-07 04:11] LABS: ABG BASE EXCESS 2.9 mmol/L (-2.0-3.0); ABG HCO3 28.7 mmol/L (22.0-26.0); ABG OXYGEN SATURATION 97.4 % (95-98); ABG PCO2 (T) 47.7 mmHg (35.0-45.0); ABG PH (T) 7.394 (7.350-7.450); ABG PO2 (T) 85.9 mmHg (83-108); ALLEN'S TEST POSITIVE; FCOHb 0.4 % (0.5-1.5); PATIENT TEMPERATURE 36.3; PEEP 5 cm H2O; RESPIRATORY RATE 22 b/min; TIDAL VOLUME 450 mL; TOTAL HEMOGLOBIN 12.6 G/dl (14.0-17.9)
--- NOTE | 2019-06-07 05:10 | NUR ---
pt is awake and alert, follows commands and nods appropriately to yes no questions
[2019-06-07] MEDS: CefTRIAXone/D5W-Rocephin 1gm 50 ML IV SCH (07:13)
[2019-06-07] MEDS: azithromycin/NS 500mg/250ml 250 ML IV SCH (07:13)
[2019-06-07] MEDS: famotidine/PF 10 mg/ml inj IV SCH ×2 (07:13→19:48)
[2019-06-07] MEDS: enoxaparin 40mg/0.4ml syringe SUBCUT SCH (07:16)
[2019-06-07] MEDS: docusate sod 100mg capsule PO SCH ×2 (07:17→19:49)
[2019-06-07] MEDS: midazolam 100mg in NS 100ml 100 ML IV PRN (07:41)
--- NOTE | 2019-06-07 12:15 | NUR ---
TF consult: Pt is intubated d/t respiratory failure r/t COPD exacerbation. 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 OGTF to start today per MD. TF recs below. Recommendations: 1. Continuous TF with Vital AF to start at 20ml/hr advance by 20ml q 8 hrs as tolerated to goal of 85ml/hr to provide total volume of 2040ml, 2448 samira, 153 g protein, and 1652 ml free water. 2. Additional 150 ml water flush q 4 hours 3. PALB q / 4. daily weights 5. bowel care as needed 6. Upon extubation, advance diet as medically indicated to heart healthy Addendum: 06/07/19 at 1216 by Wing Yanely COFFEY Amended: Links added. Addendum: 06/07/19 at [address] ERLINDA Valenzuela
[2019-06-07] MEDS: dexmedetomidin/NS 400mcg/100ml 100 ML IV SCH (14:58)
[2019-06-07] MEDS: FENTANYL-0.9 % NACL/PF 100 ML IV PRN (17:53)
--- NOTE | 2019-06-07 18:39 | NUR ---
Patient in room ICU 2044. I have received report from adan rico and had the opportunity to ask questions and assume patient care.
[2019-06-07] MEDS: sennosides/docusate sodium tablet PO SCH (19:48)
[2019-06-08] VITALS (24 sets, daily range): BP systolic 80–120; BP diastolic 51–70
[2019-06-08] MEDS: mineral oil/petrolatum ophthal oint EACHEYE SCH ×4 (01:08→21:56)
[2019-06-08] MEDS: methylPREDNISolone sod succ 125mg/2ml vial IV SCH ×4 (01:08→21:56)
[2019-06-08] MEDS: dexmedetomidin/NS 400mcg/100ml 100 ML IV SCH ×3 (02:45→18:51)
--- NOTE | 2019-06-08 02:45 | NUR ---
pt woke up and started to sit forward moving his face toward his hand. instructed pt to lay down and educated the pt about the breathing tube and that he need to be able to follow commands in order to remove the tube. pt nodded no and mouthed bitch multiple time while shaking his fist. will continue to monitor
[2019-06-08] MEDS: ipratropium/albuterol 3ml nebule NEB SCH ×6 (02:51→23:26)
[2019-06-08 03:06] LABS: BASOPHILS % (AUTO) 0.1 % (0-1); EOSINOPHILS % (AUTO) 0 % (0-6); HEMATOCRIT 36.5 % (42.0-52.0); HEMOGLOBIN 12.2 g/dl (14.0-17.9); LYMPHOCYTES # (AUTO) 0.4 X10'3 (1.1-4.8); LYMPHOCYTES % (AUTO) 5.6 % (21-51); MEAN CORPUSCULAR HEMOGLOBIN 31.5 PG (27.0-31.0); MEAN CORPUSCULAR HGB CONC 33.5 g/dL (33.0-36.5); MEAN CORPUSCULAR VOLUME 94.2 FL (78-98); MEAN PLATELET VOLUME 7.8 FL (7.4-10.4); MONOCYTES # (AUTO) 0.2 X10'3 (0-0.9); NEUTROPHILS # (AUTO) 6.4 X10'3 (1.8-7.7); NEUTROPHILS % (AUTO) 91.3 % (42-75); PLATELET COUNT 276 X10'3 (140-440); RED BLOOD COUNT 3.88 X10'6 (4.70-6.10); RED CELL DISTRIBUTION WIDTH 15.5 % (11.5-14.5)
[2019-06-08 03:17] LABS: ALANINE AMINOTRANSFERASE 16 U/L (12-78); ALBUMIN/GLOBULIN RATIO 0.9 (1.1-1.5); ALKALINE PHOSPHATASE 93 IU/L (46-116); ANION GAP 4 (8-16); ASPARTATE AMINO TRANSFERASE 11 U/L (10-37); BILIRUBIN,TOTAL 0.4 MG/DL (0.1-1.0); BLOOD UREA NITROGEN 17 MG/DL (7-18); BUN/CREATININE RATIO 28.3 (5.4-32.0); CALCIUM 8.2 MG/DL (8.5-10.1); CHLORIDE 106 MMOL/L (99-107); GLUCOSE 152 MG/DL (70-104); MAGNESIUM 1.9 MG/DL (1.5-2.4); PHOSPHORUS 3.5 MG/DL (2.3-4.5); POTASSIUM 4.3 MMOL/L (3.5-5.1); PREALBUMIN 19.4 MG/DL (19-36); SODIUM 142 MMOL/L (135-145); TOTAL CARBON DIOXIDE 32.2 MMOL/L (24-32); TOTAL PROTEIN 6.2 G/DL (6.4-8.2); eGFR > 90 ML/MIN
[2019-06-08 03:56] LABS: ABG BASE EXCESS 4.2 mmol/L (-2.0-3.0); ABG HCO3 30.2 mmol/L (22.0-26.0); ABG OXYGEN SATURATION 97.2 % (95-98); ABG PCO2 (T) 51.5 mmHg (35.0-45.0); ABG PH (T) 7.387 (7.350-7.450); ABG PO2 (T) 93.1 mmHg (83-108); ALLEN'S TEST POSITIVE; FCOHb 0.3 % (0.5-1.5); FO2Hb 96.9 % (94-100); PATIENT TEMPERATURE 37.1; RESPIRATORY RATE 16 b/min; TIDAL VOLUME 450 mL; TOTAL HEMOGLOBIN 12.5 G/dl (14.0-17.9)
--- NOTE | 2019-06-08 04:45 | NUR ---
pt sedation off and pt started to wake up and follow commands. attempted spontaneous mode. After 10 min pt tidal volumes decreased below 200 and RR increased to mid 30's. asked pt if he was getting tired and he nodded yes. Pt turned back on a rate. pt indicated that he wanted to right. pt provided with pen, paper, and clip board. pt made illegible scribble on paper. pt then began to sit straight up in bed. pt instructed to lay down. pt then started to thrash is fists and bending toward the tube. pt re-sedated for safety.
[2019-06-08] MEDS: azithromycin/NS 500mg/250ml 250 ML IV SCH (07:34)
[2019-06-08] MEDS: enoxaparin 40mg/0.4ml syringe SUBCUT SCH (07:34)
[2019-06-08] MEDS: famotidine/PF 10 mg/ml inj IV SCH ×2 (07:34→21:56)
[2019-06-08] MEDS: CefTRIAXone/D5W-Rocephin 1gm 50 ML IV SCH (07:34)
[2019-06-08] MEDS: docusate sod 100mg capsule PO SCH (07:35)
--- NOTE | 2019-06-08 08:00 | NUR ---
Patient off sedation for SBT and wean parameters. When sedation decreased, patient awakes agitated and combative. Patient mouths words at RN, but unable to write at this time. patient attempts to kick at staff members. MD aware and following
--- NOTE | 2019-06-08 10:30 | NUR ---
MDS rounds at bedside. Nursing, RT, Charge nurse, MD Hue Fantasma, PT, Dietary at bedside. MD made aware of current issues with SAT and SBT, all current vitals, labs, current condition.
[2019-06-08] MEDS: midazolam 100mg in NS 100ml 100 ML IV PRN (12:42)
[2019-06-08] MEDS: propofol 1000mg/100ml bottle 100 ML IV SCH (14:55)
[2019-06-08] MEDS: sennosides/docusate sodium tablet PO SCH (21:56)
[2019-06-08] MEDS: docusate sodium 100mg/10ml UD cup PO SCH (21:57)
[2019-06-09] VITALS (24 sets, daily range): BP systolic 98–125; BP diastolic 53–71
[2019-06-09] MEDS: midazolam 100mg in NS 100ml 100 ML IV PRN ×2 (01:34→22:20)
[2019-06-09] MEDS: methylPREDNISolone sod succ 125mg/2ml vial IV SCH ×4 (01:34→19:38)
[2019-06-09] MEDS: mineral oil/petrolatum ophthal oint EACHEYE SCH ×4 (01:34→19:39)
[2019-06-09] MEDS: dexmedetomidin/NS 400mcg/100ml 100 ML IV SCH ×3 (01:35→23:35)
[2019-06-09 02:41] LABS: BASOPHILS % (AUTO) 0 % (0-1); EOSINOPHILS % (AUTO) 0 % (0-6); HEMATOCRIT 37.9 % (42.0-52.0); HEMOGLOBIN 12.5 g/dl (14.0-17.9); LYMPHOCYTES # (AUTO) 0.2 X10'3 (1.1-4.8); LYMPHOCYTES % (AUTO) 2.6 % (21-51); MEAN CORPUSCULAR HEMOGLOBIN 30.9 PG (27.0-31.0); MEAN CORPUSCULAR VOLUME 93.7 FL (78-98); MEAN PLATELET VOLUME 7.7 FL (7.4-10.4); MONOCYTES # (AUTO) 0.3 X10'3 (0-0.9); MONOCYTES % (AUTO) 4.3 % (2-12); NEUTROPHILS # (AUTO) 7.6 X10'3 (1.8-7.7); NEUTROPHILS % (AUTO) 93.1 % (42-75); PLATELET COUNT 260 X10'3 (140-440); RED BLOOD COUNT 4.05 X10'6 (4.70-6.10); RED CELL DISTRIBUTION WIDTH 15.8 % (11.5-14.5); WHITE BLOOD COUNT 8.2 X10'3 (4.5-11.0)
[2019-06-09] MEDS: ipratropium/albuterol 3ml nebule NEB SCH ×6 (02:59→23:10)
[2019-06-09 03:03] LABS: ALANINE AMINOTRANSFERASE 17 U/L (12-78); BILIRUBIN,TOTAL 0.3 MG/DL (0.1-1.0); PHOSPHORUS 2.8 MG/DL (2.3-4.5)
[2019-06-09 03:27] LABS: ALKALINE PHOSPHATASE 86 IU/L (46-116); ANION GAP 3 (8-16); ASPARTATE AMINO TRANSFERASE 9 U/L (10-37); BLOOD UREA NITROGEN 27 MG/DL (7-18); BUN/CREATININE RATIO 51.9 (5.4-32.0); CHLORIDE 109 MMOL/L (99-107); CREATININE 0.52 MG/DL (0.60-1.10); GLUCOSE 173 MG/DL (70-104); POTASSIUM 4.5 MMOL/L (3.5-5.1); SODIUM 147 MMOL/L (135-145); TOTAL CARBON DIOXIDE 35.2 MMOL/L (24-32); eGFR > 90 ML/MIN
[2019-06-09] MEDS ORDERED: dextrose ORAL solution 15 GM/59 ML bottle PO PRN ×2 (03:30)
[2019-06-09] MEDS ORDERED: MESSAGE TO PHARMACY PO ONE (03:30)
[2019-06-09] MEDS ORDERED: glucagon, human recombinant 1mg kit SUBCUT PRN (03:30)
[2019-06-09] MEDS ORDERED: dextrose 50%-water 50ml dispensing syringe IV PRN ×2 (03:30)
[2019-06-09 03:55] LABS: ABG HCO3 30.7 mmol/L (22.0-26.0); ABG PCO2 (T) 53.6 mmHg (35.0-45.0); ABG PH (T) 7.378 (7.350-7.450); ABG PO2 (T) 78.1 mmHg (83-108); ALLEN'S TEST POSITIVE; PATIENT TEMPERATURE 37.3; PEEP 5 cm H2O; RESPIRATORY RATE 16 b/min; TIDAL VOLUME 450 mL
[2019-06-09 03:56] LABS: ABG BASE EXCESS 4.4 mmol/L (-2.0-3.0); ABG OXYGEN SATURATION 95.5 % (95-98); FCOHb 0.3 % (0.5-1.5); FMetHb 0.3 % (0.3-1.12); FO2Hb 94.9 % (94-100); TOTAL HEMOGLOBIN 13.2 G/dl (14.0-17.9)
[2019-06-09 04:06] LABS: HEMOGLOBIN A1C 6.2 % (4.5-6.2)
--- NOTE | 2019-06-09 06:45 | NUR ---
SAT completed with RT at bedside. Fantasma at bedside to assess patient. Patient becoming very agitated and combative when sedation titrated down. MD bone
[2019-06-09] MEDS: enoxaparin 40mg/0.4ml syringe SUBCUT SCH (07:21)
[2019-06-09] MEDS: azithromycin/NS 500mg/250ml 250 ML IV SCH (07:21)
[2019-06-09] MEDS: CefTRIAXone/D5W-Rocephin 1gm 50 ML IV SCH (07:21)
[2019-06-09] MEDS: docusate sodium 100mg/10ml UD cup PO SCH (07:21)
[2019-06-09] MEDS: famotidine/PF 10 mg/ml inj IV SCH ×2 (07:22→19:38)
[2019-06-09 08:10] LABS: RPR Non Reactive (Non Reactive)
[2019-06-09] MEDS: insulin regular, human vial - multi-dose SQ SCH ×3 (08:45→21:08)
--- NOTE | 2019-06-09 10:00 | NUR ---
Spoke with coupon redemption clerk, Nusrat, as well as ICU director, Aiden, and case filler, Lolis, regarding policy on HIV lab orders without consent for lab given by patient, and no proxy available to ask for patient. Per discussion, unit policy allows lab to be sent due to necessity for information in order to provide treatment.
--- NOTE | 2019-06-09 10:45 | NUR ---
MDS rounds at bedside. Nursing, RT, PT, Dietary, Pharmacy, case management, home health care social worker, and MD Fantasma at bedside. MD made aware of all current vitals, labs, drip settings, and current condition. Md aware of current SAT and SBT results.
[2019-06-09] MEDS ORDERED: bisacodyl 10mg suppository rectal RC STA (11:04)
[2019-06-09] MEDS ORDERED: acetaminophen 325mg tablet OGT PRN ×2 (11:10)
[2019-06-09] MEDS ORDERED: magnesium hydroxide 30ml (MOM) UD suspension OGT PRN (11:11)
[2019-06-09] MEDS ORDERED: dextrose ORAL solution 15 GM/59 ML bottle OGT PRN ×2 (11:11)
[2019-06-09] MEDS ORDERED: POTASSIUM BICARB 20meq eff tab 20 MEQ TABLET.EFF OGT PRN ×2 (11:12)
[2019-06-09] MEDS: FENTANYL-0.9 % NACL/PF 100 ML IV PRN (14:20)
[2019-06-09] MEDS: docusate sodium 100mg/10ml UD cup OGT SCH (19:38)
[2019-06-09] MEDS: sennosides/docusate sodium tablet OGT SCH (19:39)
[2019-06-09] MEDS: insulin glargine (Lantus) pen - multi-dose SQ SCH (21:09)
[2019-06-10] VITALS (24 sets, daily range): BP systolic 92–123; BP diastolic 51–80
[2019-06-10 02:32] LABS: BASOPHILS % (AUTO) 0.1 % (0-1); EOSINOPHILS % (AUTO) 0 % (0-6); HEMATOCRIT 36.7 % (42.0-52.0); HEMOGLOBIN 12.2 g/dl (14.0-17.9); LYMPHOCYTES # (AUTO) 0.2 X10'3 (1.1-4.8); LYMPHOCYTES % (AUTO) 2.1 % (21-51); MEAN CORPUSCULAR HEMOGLOBIN 31.5 PG (27.0-31.0); MEAN CORPUSCULAR HGB CONC 33.3 g/dL (33.0-36.5); MEAN CORPUSCULAR VOLUME 94.6 FL (78-98); MEAN PLATELET VOLUME 7.9 FL (7.4-10.4); MONOCYTES # (AUTO) 0.4 X10'3 (0-0.9); MONOCYTES % (AUTO) 4.9 % (2-12); NEUTROPHILS # (AUTO) 8.5 X10'3 (1.8-7.7); NEUTROPHILS % (AUTO) 92.9 % (42-75); PLATELET COUNT 226 X10'3 (140-440); RED BLOOD COUNT 3.88 X10'6 (4.70-6.10); RED CELL DISTRIBUTION WIDTH 15.9 % (11.5-14.5); WHITE BLOOD COUNT 9.1 X10'3 (4.5-11.0)
[2019-06-10 02:39] LABS: ALANINE AMINOTRANSFERASE 18 U/L (12-78); ALBUMIN 2.8 G/DL (3.4-5.0); ALKALINE PHOSPHATASE 76 IU/L (46-116); ANION GAP 1 (8-16); ASPARTATE AMINO TRANSFERASE 13 U/L (10-37); BILIRUBIN,TOTAL 0.3 MG/DL (0.1-1.0); BLOOD UREA NITROGEN 24 MG/DL (7-18); BUN/CREATININE RATIO 51.1 (5.4-32.0); CALCIUM 7.6 MG/DL (8.5-10.1); CHLORIDE 109 MMOL/L (99-107); CREATININE 0.47 MG/DL (0.60-1.10); GLUCOSE 241 MG/DL (70-104); MAGNESIUM 2.1 MG/DL (1.5-2.4); PHOSPHORUS 2.3 MG/DL (2.3-4.5); POTASSIUM 4.6 MMOL/L (3.5-5.1); SODIUM 146 MMOL/L (135-145); TOTAL PROTEIN 5.6 G/DL (6.4-8.2); eGFR > 90 ML/MIN
[2019-06-10] MEDS: mineral oil/petrolatum ophthal oint EACHEYE SCH ×4 (02:49→20:52)
[2019-06-10] MEDS: methylPREDNISolone sod succ 125mg/2ml vial IV SCH ×2 (02:49→20:52)
[2019-06-10] MEDS: insulin regular, human vial - multi-dose SQ SCH ×4 (02:53→21:08)
[2019-06-10] MEDS: ipratropium/albuterol 3ml nebule NEB SCH ×6 (03:13→23:28)
[2019-06-10 03:41] LABS: ABG BASE EXCESS 3.4 mmol/L (-2.0-3.0); ABG OXYGEN SATURATION 96.4 % (95-98); ABG PCO2 (T) 53.9 mmHg (35.0-45.0); ABG PH (T) 7.363 (7.350-7.450); ABG PO2 (T) 86.6 mmHg (83-108); ALLEN'S TEST POSITIVE; FCOHb 0.3 % (0.5-1.5); FMetHb 0.3 % (0.3-1.12); FO2Hb 95.8 % (94-100); PEEP 5 cm H2O; RESPIRATORY RATE 16 b/min; TIDAL VOLUME 450 mL; TOTAL HEMOGLOBIN 12.9 G/dl (14.0-17.9)
[2019-06-10] MEDS: FENTANYL-0.9 % NACL/PF 100 ML IV PRN (04:49)
[2019-06-10 09:19] LABS: HIV ANTIBODY 1&2 RAPID NON-REACTIVE (Neg)
[2019-06-10] MEDS: azithromycin/NS 500mg/250ml 250 ML IV SCH (09:45)
[2019-06-10] MEDS: famotidine/PF 10 mg/ml inj IV SCH ×2 (09:49→20:52)
[2019-06-10] MEDS: enoxaparin 40mg/0.4ml syringe SUBCUT SCH (09:49)
[2019-06-10] MEDS: docusate sodium 100mg/10ml UD cup OGT SCH ×2 (09:57→20:51)
[2019-06-10] MEDS ORDERED: CefTRIAXone/D5W-Rocephin 1gm 50 ML IV ONE (10:00)
--- NOTE | 2019-06-10 11:51 | NUR ---
Reassessment: Pt remains intubated and receiving TF at goal rate. Residuals initially 5-380 mL however now more steadily 80-150 mL which is WNL. Pt would likely benefit from opioid antagonist as pt currently receiving Propofol and Fentanyl. Patient's wt is +3.2 kg since admit, likely r/t fluid as pt with a positive fluid balance of 5.9L over the last four days. LBM 06/09. Will continue to follow closely. Recommendations: 1. Continuous TF with Vital AF to start at 20ml/hr advance by 20ml q 8 hrs as tolerated to goal of 85ml/hr to provide total volume of 2040ml, 2448 samira, 153 g protein, and 1652 ml free water. 2. Additional 150 ml water flush q 4 hours 3. PALB q 4. daily weights 5. routine bowel care 6. opioid antagonist, to d/w 7. Upon extubation, advance diet as medically indicated to heart healthy Addendum: 06/10/19 at [address] Amended: Links added.
[2019-06-10] MEDS: propofol 1000mg/100ml bottle 100 ML IV SCH (12:45)
[2019-06-10] MEDS: dexmedetomidin/NS 400mcg/100ml 100 ML IV SCH (14:15)
[2019-06-10] MEDS: sennosides/docusate sodium tablet OGT SCH (20:51)
[2019-06-10] MEDS: insulin glargine (Lantus) pen - multi-dose SQ SCH (21:10)
[2019-06-11] VITALS (23 sets, daily range): BP systolic 95–173; BP diastolic 53–108
[2019-06-11] MEDS: midazolam 100mg in NS 100ml 100 ML IV PRN (00:03)
[2019-06-11] MEDS: mineral oil/petrolatum ophthal oint EACHEYE SCH ×4 (02:00→20:00)
[2019-06-11] MEDS: dexmedetomidin/NS 400mcg/100ml 100 ML IV SCH ×2 (02:00→07:50)
[2019-06-11] MEDS: ipratropium/albuterol 3ml nebule NEB SCH ×5 (03:04→19:14)
[2019-06-11] MEDS: insulin regular, human vial - multi-dose SQ SCH ×2 (03:08→08:08)
[2019-06-11 03:36] LABS: ABG BASE EXCESS 8.7 mmol/L (-2.0-3.0); ABG HCO3 35.4 mmol/L (22.0-26.0); ABG OXYGEN SATURATION 96.7 % (95-98); ABG PCO2 (T) 58.3 mmHg (35.0-45.0); ABG PH (T) 7.402 (7.350-7.450); ABG PO2 (T) 82.2 mmHg (83-108); ALLEN'S TEST POSITIVE; FCOHb 0.1 % (0.5-1.5); FO2Hb 96.6 % (94-100); PATIENT TEMPERATURE 37.1; PEEP 5 cm H2O; RESPIRATORY RATE 18 b/min; TIDAL VOLUME 450 mL; TOTAL HEMOGLOBIN 12.9 G/dl (14.0-17.9)
[2019-06-11 03:44] LABS: BASOPHILS % (AUTO) 0 % (0-1); EOSINOPHILS % (AUTO) 0 % (0-6); HEMATOCRIT 37.2 % (42.0-52.0); HEMOGLOBIN 12.2 g/dl (14.0-17.9); LYMPHOCYTES # (AUTO) 0.2 X10'3 (1.1-4.8); LYMPHOCYTES % (AUTO) 2.2 % (21-51); MEAN CORPUSCULAR HGB CONC 32.7 g/dL (33.0-36.5); MEAN CORPUSCULAR VOLUME 94.7 FL (78-98); MONOCYTES # (AUTO) 0.4 X10'3 (0-0.9); MONOCYTES % (AUTO) 4.3 % (2-12); NEUTROPHILS % (AUTO) 93.5 % (42-75); PLATELET COUNT 221 X10'3 (140-440); RED BLOOD COUNT 3.93 X10'6 (4.70-6.10); RED CELL DISTRIBUTION WIDTH 15.6 % (11.5-14.5); WHITE BLOOD COUNT 9.6 X10'3 (4.5-11.0)
[2019-06-11 03:57] LABS: ALANINE AMINOTRANSFERASE 26 U/L (12-78); ALBUMIN 2.6 G/DL (3.4-5.0); ALKALINE PHOSPHATASE 67 IU/L (46-116); ANION GAP -2 (8-16); ASPARTATE AMINO TRANSFERASE 12 U/L (10-37); BILIRUBIN,TOTAL 0.4 MG/DL (0.1-1.0); BLOOD UREA NITROGEN 26 MG/DL (7-18); BUN/CREATININE RATIO 61.9 (5.4-32.0); CALCIUM 7.3 MG/DL (8.5-10.1); CHLORIDE 108 MMOL/L (99-107); CREATININE 0.42 MG/DL (0.60-1.10); GLUCOSE 153 MG/DL (70-104); MAGNESIUM 1.7 MG/DL (1.5-2.4); PHOSPHORUS 2.1 MG/DL (2.3-4.5); POTASSIUM 4.7 MMOL/L (3.5-5.1); SODIUM 145 MMOL/L (135-145); TOTAL CARBON DIOXIDE 38.6 MMOL/L (24-32); TOTAL PROTEIN 5.3 G/DL (6.4-8.2); eGFR > 90 ML/MIN
[2019-06-11] MEDS: docusate sodium 100mg/10ml UD cup OGT SCH ×2 (07:50→20:48)
[2019-06-11] MEDS: methylPREDNISolone sod succ 125mg/2ml vial IV SCH ×2 (07:50→20:49)
[2019-06-11] MEDS: enoxaparin 40mg/0.4ml syringe SUBCUT SCH (07:50)
[2019-06-11] MEDS: famotidine/PF 10 mg/ml inj IV SCH ×2 (07:50→20:48)
--- NOTE | 2019-06-11 09:42 | NUR ---
Pt following commands, sat to side of bed with physical therapy. Weaning parameters met. postive cuff leak, VC 1023, RSBI 36, NIF -23. Order to extubate per MD Quispe at bedside. Rt made aware.
--- NOTE | 2019-06-11 09:50 | NUR ---
Pt extubated to 6L NC sating 83% with increased WOB. MD rodriguez at bedside. RT notified and placed on venturi mask at 35% 12L. sating 90%
[2019-06-11] MEDS: morphine 2 MG/ML inj. syringe IV PRN ×2 (11:13→20:49)
--- NOTE | 2019-06-11 11:45 | NUR ---
Pt with increased WOB and accessory muscle use. Pt also more lethargic and tachycardic in the 110s. MD rosario called and ordered Bipap and ABG. RT notified. Pt with easier WoB AND SATING 96% on 35% Fio2. Will continue to monitor closely.
[2019-06-11 12:15] LABS: ABG BASE EXCESS 8.3 mmol/L (-2.0-3.0); ABG HCO3 39.4 mmol/L (22.0-26.0); ABG OXYGEN SATURATION 95.5 % (95-98); ABG PCO2 (T) 93.7 mmHg (35.0-45.0); ABG PH (T) 7.242 (7.350-7.450); ABG PO2 (T) 81.2 mmHg (83-108); ALLEN'S TEST POSITIVE; FCOHb 0.4 % (0.5-1.5); FMetHb 0.1 % (0.3-1.12); RESPIRATORY RATE 16 b/min; TOTAL HEMOGLOBIN 13.8 G/dl (14.0-17.9)
[2019-06-11] MEDS: LORazepam 2 mg/ml vial IV PRN ×3 (13:11→20:49)
[2019-06-11 13:55] LABS: ABG BASE EXCESS 4.2 mmol/L (-2.0-3.0); ABG HCO3 30.9 mmol/L (22.0-26.0); ABG OXYGEN SATURATION 96.1 % (95-98); ABG PCO2 (T) 57.1 mmHg (35.0-45.0); ABG PH (T) 7.351 (7.350-7.450); ABG PO2 (T) 77.7 mmHg (83-108); ALLEN'S TEST POSITIVE; FCOHb 0.3 % (0.5-1.5); FMetHb 0.3 % (0.3-1.12); FO2Hb 95.5 % (94-100); RESPIRATORY RATE 22 b/min; TOTAL HEMOGLOBIN 11.1 G/dl (14.0-17.9)
--- NOTE | 2019-06-11 18:35 | NUR ---
I have received report and assumed care of pt, pt resting in bed denies needs at this time, pt is on bipap no distress noted.
--- NOTE | 2019-06-11 20:30 | NUR ---
hs cares complete, pt medicated as needed per md orders for Pain and anxiety.
[2019-06-11] MEDS: sennosides/docusate sodium tablet OGT SCH (20:48)
[2019-06-11] MEDS: insulin glargine (Lantus) pen - multi-dose SQ SCH (21:00)
--- NOTE | 2019-06-11 23:00 | NUR ---
pt does become intermittently agitated sometimes he can be difficult to redirect,
[2019-06-12] VITALS (22 sets, daily range): BP systolic 96–155; BP diastolic 45–102
[2019-06-12] MEDS: ipratropium/albuterol 3ml nebule NEB SCH ×7 (00:21→23:18)
[2019-06-12] MEDS: morphine 2 MG/ML inj. syringe IV PRN ×5 (00:40→23:50)
[2019-06-12] MEDS: LORazepam 2 mg/ml vial IV PRN ×5 (00:40→23:49)
[2019-06-12] MEDS: dexmedetomidin/NS 400mcg/100ml 100 ML IV SCH ×2 (01:25→22:02)
[2019-06-12] MEDS: mineral oil/petrolatum ophthal oint EACHEYE SCH ×3 (02:00→14:10)
[2019-06-12 03:48] LABS: BASOPHILS % (AUTO) 0.1 % (0-1); EOSINOPHILS % (AUTO) 0 % (0-6); HEMATOCRIT 36.8 % (42.0-52.0); HEMOGLOBIN 12.1 g/dl (14.0-17.9); LYMPHOCYTES # (AUTO) 0.5 X10'3 (1.1-4.8); LYMPHOCYTES % (AUTO) 6.8 % (21-51); MEAN CORPUSCULAR HEMOGLOBIN 31.2 PG (27.0-31.0); MEAN CORPUSCULAR HGB CONC 32.9 g/dL (33.0-36.5); MEAN CORPUSCULAR VOLUME 94.8 FL (78-98); MEAN PLATELET VOLUME 8.2 FL (7.4-10.4); MONOCYTES # (AUTO) 0.3 X10'3 (0-0.9); MONOCYTES % (AUTO) 4.7 % (2-12); NEUTROPHILS # (AUTO) 6.5 X10'3 (1.8-7.7); NEUTROPHILS % (AUTO) 88.4 % (42-75); PLATELET COUNT 234 X10'3 (140-440); RED BLOOD COUNT 3.88 X10'6 (4.70-6.10); RED CELL DISTRIBUTION WIDTH 15.6 % (11.5-14.5); WHITE BLOOD COUNT 7.3 X10'3 (4.5-11.0)
[2019-06-12 04:04] LABS: ALANINE AMINOTRANSFERASE 30 U/L (12-78); ALBUMIN 2.8 G/DL (3.4-5.0); ALKALINE PHOSPHATASE 69 IU/L (46-116); ANION GAP -4 (8-16); ASPARTATE AMINO TRANSFERASE 15 U/L (10-37); BILIRUBIN,TOTAL 0.8 MG/DL (0.1-1.0); BLOOD UREA NITROGEN 27 MG/DL (7-18); BUN/CREATININE RATIO 71.1 (5.4-32.0); CALCIUM 7.8 MG/DL (8.5-10.1); CHLORIDE 106 MMOL/L (99-107); CREATININE 0.38 MG/DL (0.60-1.10); GLUCOSE 97 MG/DL (70-104); MAGNESIUM 1.9 MG/DL (1.5-2.4); PHOSPHORUS 3.4 MG/DL (2.3-4.5); POTASSIUM 4.5 MMOL/L (3.5-5.1); PREALBUMIN 27.7 MG/DL (19-36); SODIUM 144 MMOL/L (135-145); TOTAL PROTEIN 5.6 G/DL (6.4-8.2); eGFR > 90 ML/MIN
[2019-06-12 04:06] LABS: TOTAL CARBON DIOXIDE 42.1 MMOL/L (24-32)
--- NOTE | 2019-06-12 04:32 | NUR ---
no changes in condition noted
[2019-06-12] MEDS: enoxaparin 40mg/0.4ml syringe SUBCUT SCH (07:22)
[2019-06-12] MEDS: famotidine/PF 10 mg/ml inj IV SCH ×2 (07:22→19:25)
[2019-06-12] MEDS: methylPREDNISolone sod succ 125mg/2ml vial IV SCH ×2 (07:22→19:25)
[2019-06-12] MEDS: docusate sodium 100mg/10ml UD cup OGT SCH ×2 (07:43→19:15)
--- NOTE | 2019-06-12 08:13 | NUR ---
Bipap removed to NC 5L. Pt sating well and appears to be alert. AxOX4 and following commands. Morphine given for air hunger per MD rosario orders. WOB easy and pt states he is "better than yesterday." Will continue to monitor closely.
[2019-06-12 10:45] LABS: ABG BASE EXCESS 12.6 mmol/L (-2.0-3.0); ABG HCO3 40.5 mmol/L (22.0-26.0); ABG OXYGEN SATURATION 92.4 % (95-98); ABG PCO2 (T) 67.9 mmHg (35.0-45.0); ABG PH (T) 7.393 (7.350-7.450); ALLEN'S TEST POSITIVE; FCOHb 0.4 % (0.5-1.5); FLOW 3 L/min; FMetHb 0.2 % (0.3-1.12); FO2Hb 91.8 % (94-100); PATIENT TEMPERATURE 36.9; TOTAL HEMOGLOBIN 13.6 G/dl (14.0-17.9)
[2019-06-12] MEDS: sennosides/docusate sodium tablet OGT SCH (19:15)
[2019-06-12] MEDS: insulin glargine (Lantus) pen - multi-dose SQ SCH (20:41)
[2019-06-13] VITALS (24 sets, daily range): BP systolic 90–149; BP diastolic 47–99
[2019-06-13 02:41] LABS: BASOPHILS % (AUTO) 0.1 % (0-1); EOSINOPHILS % (AUTO) 0.1 % (0-6); HEMATOCRIT 35.1 % (42.0-52.0); HEMOGLOBIN 11.7 g/dl (14.0-17.9); LYMPHOCYTES # (AUTO) 0.7 X10'3 (1.1-4.8); LYMPHOCYTES % (AUTO) 9.9 % (21-51); MEAN CORPUSCULAR HEMOGLOBIN 31.5 PG (27.0-31.0); MEAN CORPUSCULAR HGB CONC 33.2 g/dL (33.0-36.5); MEAN CORPUSCULAR VOLUME 94.6 FL (78-98); MEAN PLATELET VOLUME 7.7 FL (7.4-10.4); MONOCYTES # (AUTO) 0.7 X10'3 (0-0.9); MONOCYTES % (AUTO) 10.1 % (2-12); NEUTROPHILS # (AUTO) 5.4 X10'3 (1.8-7.7); NEUTROPHILS % (AUTO) 79.8 % (42-75); PLATELET COUNT 241 X10'3 (140-440); RED BLOOD COUNT 3.71 X10'6 (4.70-6.10); RED CELL DISTRIBUTION WIDTH 15.3 % (11.5-14.5); WHITE BLOOD COUNT 6.8 X10'3 (4.5-11.0)
[2019-06-13 03:06] LABS: ALANINE AMINOTRANSFERASE 28 U/L (12-78); ALBUMIN 2.7 G/DL (3.4-5.0); ALBUMIN/GLOBULIN RATIO 1.1 (1.1-1.5); ALKALINE PHOSPHATASE 60 IU/L (46-116); ANION GAP -3 (8-16); ASPARTATE AMINO TRANSFERASE 14 U/L (10-37); BILIRUBIN,TOTAL 0.9 MG/DL (0.1-1.0); BLOOD UREA NITROGEN 23 MG/DL (7-18); BUN/CREATININE RATIO 57.5 (5.4-32.0); CHLORIDE 104 MMOL/L (99-107); GLUCOSE 135 MG/DL (70-104); MAGNESIUM 1.9 MG/DL (1.5-2.4); PHOSPHORUS 4.2 MG/DL (2.3-4.5); POTASSIUM 4.2 MMOL/L (3.5-5.1); SODIUM 144 MMOL/L (135-145); TOTAL PROTEIN 5.2 G/DL (6.4-8.2); TRIGLYCERIDES 83 MG/DL (20-135); eGFR > 90 ML/MIN
[2019-06-13 03:09] LABS: TOTAL CARBON DIOXIDE 43.3 MMOL/L (24-32)
[2019-06-13] MEDS: ipratropium/albuterol 3ml nebule NEB SCH ×6 (03:15→22:55)
--- NOTE | 2019-06-13 06:05 | NUR ---
Patient in room ICU 2044. I have received report from Moira RINCON and had the opportunity to ask questions and assume patient care.
[2019-06-13] MEDS: docusate sodium 100mg/10ml UD cup OGT SCH (08:00)
[2019-06-13] MEDS: famotidine/PF 10 mg/ml inj IV SCH ×2 (08:35→20:07)
[2019-06-13] MEDS: methylPREDNISolone sod succ 125mg/2ml vial IV SCH (08:37)
[2019-06-13] MEDS: enoxaparin 40mg/0.4ml syringe SUBCUT SCH (08:38)
[2019-06-13] MEDS: morphine 2 MG/ML inj. syringe IV PRN ×2 (10:03→20:08)
--- NOTE | 2019-06-13 14:33 | NUR ---
Reassessment: Pt is now extubated and on pureed diet with thin liquids per ST BSS recs. Pt with pending PO intake, monitor need for ONS as pt is currently documented with confusion. LBM 06/11, pt is on routine bowel care meds. Will continue to monitor. Recommendations: 1. Continue pureed diet with thin liquids per ST BSS recs 2. monitor need for ONS 3. routine bowel care 4. weight per rx Addendum: 06/13/19 at 1433 by Wing Yanely COFFEY Amended: Links added. Addendum: 06/13/[address] ERLINDA agree with note
[2019-06-13] MEDS ORDERED: dextrose 50%-water 50ml dispensing syringe IV PRN ×2 (15:10)
[2019-06-13] MEDS ORDERED: dextrose ORAL solution 15 GM/59 ML bottle PO PRN ×2 (15:10)
[2019-06-13] MEDS ORDERED: MESSAGE TO PHARMACY PO ONE (15:10)
[2019-06-13] MEDS ORDERED: glucagon, human recombinant 1mg kit SUBCUT PRN (15:10)
[2019-06-13] MEDS ORDERED: insulin Lispro (HumaLOG) vial - multi-dose SQ SCH (15:10)
--- NOTE | 2019-06-13 18:07 | NUR ---
Problems reprioritized. Patient report given, questions answered & plan of care reviewed with Moira RINCON.
[2019-06-13] MEDS ORDERED: acetaminophen 325mg tablet PO PRN (19:44)
[2019-06-13] MEDS ORDERED: magnesium hydroxide 30ml (MOM) UD suspension PO PRN (19:46)
[2019-06-13] MEDS ORDERED: POTASSIUM BICARB 20meq eff tab 20 MEQ TABLET.EFF PO PRN ×2 (19:46→19:47)
[2019-06-13] MEDS: docusate sodium 100mg/10ml UD cup PO SCH (20:00)
[2019-06-13] MEDS: methylPREDNISolone sod succ/PF 40mg inj. IV SCH (20:07)
[2019-06-13] MEDS: sennosides/docusate sodium tablet PO SCH (20:09)
[2019-06-13] MEDS: insulin glargine (Lantus) pen - multi-dose SQ SCH (20:33)
[2019-06-13] MEDS: dexmedetomidin/NS 400mcg/100ml 100 ML IV SCH (20:55)
[2019-06-14] VITALS (16 sets, daily range): BP systolic 100–168; BP diastolic 68–96
[2019-06-14] MEDS: ipratropium/albuterol 3ml nebule NEB SCH ×5 (02:35→20:17)
[2019-06-14] MEDS: acetaminophen 325mg tablet PO PRN (05:00)
[2019-06-14 05:55] LABS: BASOPHILS % (AUTO) 0.3 % (0-1); EOSINOPHILS % (AUTO) 0 % (0-6); HEMATOCRIT 40.4 % (42.0-52.0); HEMOGLOBIN 13.4 g/dl (14.0-17.9); LYMPHOCYTES # (AUTO) 0.7 X10'3 (1.1-4.8); MEAN CORPUSCULAR HEMOGLOBIN 31.1 PG (27.0-31.0); MEAN CORPUSCULAR HGB CONC 33.3 g/dL (33.0-36.5); MEAN CORPUSCULAR VOLUME 93.3 FL (78-98); MEAN PLATELET VOLUME 7.7 FL (7.4-10.4); MONOCYTES # (AUTO) 0.7 X10'3 (0-0.9); MONOCYTES % (AUTO) 9.1 % (2-12); NEUTROPHILS # (AUTO) 6.4 X10'3 (1.8-7.7); NEUTROPHILS % (AUTO) 81.6 % (42-75); PLATELET COUNT 321 X10'3 (140-440); RED BLOOD COUNT 4.33 X10'6 (4.70-6.10); RED CELL DISTRIBUTION WIDTH 15.1 % (11.5-14.5); WHITE BLOOD COUNT 7.9 X10'3 (4.5-11.0)
[2019-06-14 06:20] LABS: ALANINE AMINOTRANSFERASE 44 U/L (12-78); ALBUMIN 3.2 G/DL (3.4-5.0); ALBUMIN/GLOBULIN RATIO 1.1 (1.1-1.5); ALKALINE PHOSPHATASE 70 IU/L (46-116); ANION GAP 0 (8-16); ASPARTATE AMINO TRANSFERASE 15 U/L (10-37); BILIRUBIN,TOTAL 1.1 MG/DL (0.1-1.0); BLOOD UREA NITROGEN 19 MG/DL (7-18); BUN/CREATININE RATIO 45.2 (5.4-32.0); CALCIUM 8.5 MG/DL (8.5-10.1); CHLORIDE 102 MMOL/L (99-107); CREATININE 0.42 MG/DL (0.60-1.10); GLUCOSE 125 MG/DL (70-104); MAGNESIUM 1.9 MG/DL (1.5-2.4); PHOSPHORUS 3.7 MG/DL (2.3-4.5); POTASSIUM 4.3 MMOL/L (3.5-5.1); SODIUM 144 MMOL/L (135-145); TOTAL PROTEIN 6.2 G/DL (6.4-8.2); eGFR > 90 ML/MIN
[2019-06-14 06:33] LABS: TOTAL CARBON DIOXIDE 41.9 MMOL/L (24-32)
[2019-06-14] MEDS: docusate sodium 100mg/10ml UD cup PO SCH ×2 (07:16→21:23)
[2019-06-14] MEDS: enoxaparin 40mg/0.4ml syringe SUBCUT SCH (07:17)
[2019-06-14] MEDS: methylPREDNISolone sod succ/PF 40mg inj. IV SCH ×2 (07:17→21:24)
[2019-06-14] MEDS: famotidine/PF 10 mg/ml inj IV SCH ×2 (07:17→21:23)
--- NOTE | 2019-06-14 08:29 | NUR ---
Pt becoming increasingly agitated. Provided reassurance and ensured safety. Pt understands his limits at this time.
--- NOTE | 2019-06-14 12:06 | NUR ---
Patient in room ICU 2044. I have received report from Rhonda RINCON and had the opportunity to ask questions and assume patient care. Awaiting arrival to the unit.
--- NOTE | 2019-06-14 12:26 | NUR ---
Patient arrived to the unit accompanied by ICU personnel and bedside sitter. tiger machine operator on patient and transmitting properly. Vital signs obtained, patient belongings placed in closet. Patient oriented to room and call light, no complaints at this time. Will continue to monitor.
[2019-06-14] MEDS: LORazepam 2 mg/ml vial IV PRN (13:44)
--- NOTE | 2019-06-14 18:23 | NUR ---
Problems reprioritized. Patient report given, questions answered & plan of care reviewed with Marycarmen Weir at bedside.
[2019-06-14] MEDS: insulin glargine (Lantus) pen - multi-dose SQ SCH (21:00)
[2019-06-14] MEDS: nicotine 21mg patch - 24 hr TD SCH (21:23)
[2019-06-14] MEDS: sennosides/docusate sodium tablet PO SCH (21:23)
[2019-06-15] MEDS: ipratropium/albuterol 3ml nebule NEB SCH ×7 (00:41→23:23)
[2019-06-15 03:00] VITALS: BP 119/73
[2019-06-15 06:00] VITALS: BP 93/40
[2019-06-15 06:00] LABS: BASOPHILS % (AUTO) 0.1 % (0-1); EOSINOPHILS % (AUTO) 0 % (0-6); HEMATOCRIT 38.9 % (42.0-52.0); LYMPHOCYTES # (AUTO) 0.7 X10'3 (1.1-4.8); LYMPHOCYTES % (AUTO) 9.5 % (21-51); MEAN CORPUSCULAR HEMOGLOBIN 31.3 PG (27.0-31.0); MEAN CORPUSCULAR HGB CONC 33.5 g/dL (33.0-36.5); MEAN CORPUSCULAR VOLUME 93.6 FL (78-98); MEAN PLATELET VOLUME 7.5 FL (7.4-10.4); MONOCYTES # (AUTO) 0.5 X10'3 (0-0.9); MONOCYTES % (AUTO) 7.1 % (2-12); NEUTROPHILS # (AUTO) 5.9 X10'3 (1.8-7.7); NEUTROPHILS % (AUTO) 83.3 % (42-75); PLATELET COUNT 299 X10'3 (140-440); RED BLOOD COUNT 4.15 X10'6 (4.70-6.10); RED CELL DISTRIBUTION WIDTH 14.9 % (11.5-14.5); WHITE BLOOD COUNT 7.1 X10'3 (4.5-11.0)
--- NOTE | 2019-06-15 06:00 | NUR ---
Patient in room PCU 3016. I have received report from Marycarmen RINCON and had the opportunity to ask questions and assume patient care.
[2019-06-15 06:23] LABS: ALANINE AMINOTRANSFERASE 48 U/L (12-78); ALBUMIN/GLOBULIN RATIO 1.1 (1.1-1.5); ALKALINE PHOSPHATASE 65 IU/L (46-116); ANION GAP 0 (8-16); ASPARTATE AMINO TRANSFERASE 19 U/L (10-37); BILIRUBIN,TOTAL 1.1 MG/DL (0.1-1.0); BLOOD UREA NITROGEN 14 MG/DL (7-18); CALCIUM 8.1 MG/DL (8.5-10.1); CHLORIDE 101 MMOL/L (99-107); GLUCOSE 184 MG/DL (70-104); MAGNESIUM 1.8 MG/DL (1.5-2.4); PHOSPHORUS 4.2 MG/DL (2.3-4.5); POTASSIUM 4.3 MMOL/L (3.5-5.1); PREALBUMIN 24.2 MG/DL (19-36); SODIUM 142 MMOL/L (135-145); TOTAL PROTEIN 5.8 G/DL (6.4-8.2); eGFR > 90 ML/MIN
[2019-06-15 06:27] LABS: TOTAL CARBON DIOXIDE 41.4 MMOL/L (24-32)
[2019-06-15] MEDS: enoxaparin 40mg/0.4ml syringe SUBCUT SCH (07:30)
[2019-06-15] MEDS: nicotine 21mg patch - 24 hr TD SCH (07:30)
[2019-06-15] MEDS: methylPREDNISolone sod succ/PF 40mg inj. IV SCH ×2 (07:30→20:37)
[2019-06-15] MEDS: docusate sodium 100mg/10ml UD cup PO SCH ×2 (07:30→20:37)
[2019-06-15] MEDS: famotidine/PF 10 mg/ml inj IV SCH ×2 (07:31→20:39)
[2019-06-15] MEDS: acetaminophen 325mg tablet PO PRN (07:35)
[2019-06-15 11:00] VITALS: BP 140/82
--- NOTE | 2019-06-15 14:26 | NUR ---
PAGER ID: [phone] MESSAGE: [id number] Kunal Thomas/o 02/16 headache. States he's had migraines for 35 years. Only has Tylenol for pain. States he uses zomig at home. Lina Chand21
[2019-06-15] MEDS: SUMAtriptan 25 MG tablet PO PRN (15:09)
--- NOTE | 2019-06-15 15:11 | NUR ---
Reassessment: Pt continues with good PO 75-100% avg meals s/p extubation meeting needs. To continue pureed/thin/carb controlled per HEAD OF VISUAL MERCHANDISING f/u recs. LBM 2/3. No nutrition concerns at this time. Will continue to monitor. Recommendations: 1. Continue carb controlled, pureed diet with thin liquids per HEAD OF VISUAL MERCHANDISING BSS recs 2. bowel care as needed 3. weight per rx Addendum: 06/15/19 at [address] Amended: Links added.
[2019-06-15] MEDS: morphine 2 MG/ML inj. syringe IV PRN ×2 (15:15→20:38)
[2019-06-15] MEDS ORDERED: SUMAtriptan 25 MG tablet PO ONE (16:50)
[2019-06-15 18:00] VITALS: BP 120/83
--- NOTE | 2019-06-15 18:21 | NUR ---
Problems reprioritized. Patient report given, questions answered & plan of care reviewed with Marycarmen RINCON.
[2019-06-15] MEDS: sennosides/docusate sodium tablet PO SCH (20:37)
[2019-06-15 21:00] VITALS: BP 98/69
[2019-06-15] MEDS: insulin glargine (Lantus) pen - multi-dose SQ SCH (21:00)
[2019-06-16] MEDS: ipratropium/albuterol 3ml nebule NEB SCH ×6 (03:10→23:00)
--- NOTE | 2019-06-16 06:09 | NUR ---
Patient in room PCU 3016. I have received report from SERGEY Conroy and had the opportunity to ask questions and assume patient care.
[2019-06-16 06:38] LABS: BASOPHILS % (AUTO) 0.1 % (0-1); EOSINOPHILS % (AUTO) 0.1 % (0-6); HEMATOCRIT 40.2 % (42.0-52.0); HEMOGLOBIN 13.4 g/dl (14.0-17.9); LYMPHOCYTES # (AUTO) 1.1 X10'3 (1.1-4.8); LYMPHOCYTES % (AUTO) 11.8 % (21-51); MEAN CORPUSCULAR HEMOGLOBIN 30.9 PG (27.0-31.0); MEAN CORPUSCULAR HGB CONC 33.3 g/dL (33.0-36.5); MEAN CORPUSCULAR VOLUME 92.7 FL (78-98); MEAN PLATELET VOLUME 7.6 FL (7.4-10.4); MONOCYTES # (AUTO) 0.9 X10'3 (0-0.9); NEUTROPHILS # (AUTO) 7.6 X10'3 (1.8-7.7); PLATELET COUNT 304 X10'3 (140-440); RED BLOOD COUNT 4.34 X10'6 (4.70-6.10); RED CELL DISTRIBUTION WIDTH 15.2 % (11.5-14.5); WHITE BLOOD COUNT 9.6 X10'3 (4.5-11.0)
[2019-06-16 07:00] VITALS: BP 113/71
[2019-06-16 07:07] LABS: ALANINE AMINOTRANSFERASE 40 U/L (12-78); ALBUMIN/GLOBULIN RATIO 1.1 (1.1-1.5); ALKALINE PHOSPHATASE 63 IU/L (46-116); ANION GAP 2 (8-16); ASPARTATE AMINO TRANSFERASE 11 U/L (10-37); BILIRUBIN,TOTAL 0.6 MG/DL (0.1-1.0); BLOOD UREA NITROGEN 17 MG/DL (7-18); BUN/CREATININE RATIO 40.5 (5.4-32.0); CALCIUM 7.9 MG/DL (8.5-10.1); CHLORIDE 103 MMOL/L (99-107); CREATININE 0.42 MG/DL (0.60-1.10); GLUCOSE 149 MG/DL (70-104); MAGNESIUM 1.7 MG/DL (1.5-2.4); PHOSPHORUS 3.1 MG/DL (2.3-4.5); POTASSIUM 3.9 MMOL/L (3.5-5.1); SODIUM 144 MMOL/L (135-145); TOTAL PROTEIN 5.7 G/DL (6.4-8.2); eGFR > 90 ML/MIN
[2019-06-16] MEDS: famotidine/PF 10 mg/ml inj IV SCH ×2 (07:41→20:32)
[2019-06-16] MEDS: methylPREDNISolone sod succ/PF 40mg inj. IV SCH ×2 (07:41→20:32)
[2019-06-16] MEDS: docusate sodium 100mg/10ml UD cup PO SCH ×2 (07:41→20:33)
[2019-06-16] MEDS: enoxaparin 40mg/0.4ml syringe SUBCUT SCH (07:42)
--- NOTE | 2019-06-16 07:45 | NUR ---
Pt refused insulin
[2019-06-16] MEDS: morphine 2 MG/ML inj. syringe IV PRN (08:03)
[2019-06-16] MEDS: nicotine 21mg patch - 24 hr TD SCH (08:06)
[2019-06-16 11:00] VITALS: BP 108/80
[2019-06-16] MEDS: SUMAtriptan 25 MG tablet PO PRN ×2 (11:13→20:32)
--- NOTE | 2019-06-16 14:12 | NUR ---
Paged Endy PAGER ID: [phone] MESSAGE: [id number]: German Thomas - Pt received one dose of Imatrex, pt asking for second. Per pharm do not give. May I have an order for Excedrin? Dolly [phone]
[2019-06-16 15:00] VITALS: BP 114/63
--- NOTE | 2019-06-16 18:30 | NUR ---
Patient in room PCU 3016. I have received report from Shirley RINCON and had the opportunity to ask questions and assume patient care.
--- NOTE | 2019-06-16 18:35 | NUR ---
Problems reprioritized. Patient report given, questions answered & plan of care reviewed with SERGEY Samuels.
[2019-06-16] MEDS: sennosides/docusate sodium tablet PO SCH (20:32)
[2019-06-16] MEDS: Melatonin 3mg tablet PO SCH (20:32)
[2019-06-16] MEDS: insulin glargine (Lantus) pen - multi-dose SQ SCH (21:00)
--- NOTE | 2019-06-16 21:00 | NUR ---
pt refused 2100 blood sugar check
--- NOTE | 2019-06-16 21:39 | NUR ---
pt states that he does not want to be woken or disturbed for Vital signs the rest of the night.
[2019-06-17 02:00] VITALS: BP 140/90
[2019-06-17] MEDS: ipratropium/albuterol 3ml nebule NEB SCH ×5 (03:31→20:48)
--- NOTE | 2019-06-17 06:13 | NUR ---
Problems reprioritized. Patient report given, questions answered & plan of care reviewed with Shirley RINCON.
--- NOTE | 2019-06-17 06:14 | NUR ---
Patient in room PCU 3016. I have received report from SERGEY Arita and had the opportunity to ask questions and assume patient care.
[2019-06-17 06:17] LABS: ALANINE AMINOTRANSFERASE 35 U/L (12-78); ALBUMIN 3.1 G/DL (3.4-5.0); ALBUMIN/GLOBULIN RATIO 1.1 (1.1-1.5); ALKALINE PHOSPHATASE 63 IU/L (46-116); ANION GAP 3 (8-16); ASPARTATE AMINO TRANSFERASE 12 U/L (10-37); BILIRUBIN,TOTAL 0.7 MG/DL (0.1-1.0); BLOOD UREA NITROGEN 13 MG/DL (7-18); BUN/CREATININE RATIO 27.7 (5.4-32.0); CALCIUM 8.8 MG/DL (8.5-10.1); CHLORIDE 104 MMOL/L (99-107); CREATININE 0.47 MG/DL (0.60-1.10); GLUCOSE 127 MG/DL (70-104); MAGNESIUM 1.9 MG/DL (1.5-2.4); PHOSPHORUS 4.1 MG/DL (2.3-4.5); POTASSIUM 4.3 MMOL/L (3.5-5.1); SODIUM 144 MMOL/L (135-145); TOTAL CARBON DIOXIDE 36.9 MMOL/L (24-32); TOTAL PROTEIN 5.9 G/DL (6.4-8.2); eGFR > 90 ML/MIN
[2019-06-17 06:38] LABS: BASOPHILS % (AUTO) 0.1 % (0-1); EOSINOPHILS % (AUTO) 0 % (0-6); HEMATOCRIT 40.3 % (42.0-52.0); HEMOGLOBIN 13.8 g/dl (14.0-17.9); LYMPHOCYTES # (AUTO) 0.9 X10'3 (1.1-4.8); MEAN CORPUSCULAR HEMOGLOBIN 31.8 PG (27.0-31.0); MEAN CORPUSCULAR HGB CONC 34.1 g/dL (33.0-36.5); MEAN CORPUSCULAR VOLUME 93.4 FL (78-98); MEAN PLATELET VOLUME 7.5 FL (7.4-10.4); MONOCYTES # (AUTO) 0.6 X10'3 (0-0.9); MONOCYTES % (AUTO) 6.1 % (2-12); NEUTROPHILS # (AUTO) 7.5 X10'3 (1.8-7.7); NEUTROPHILS % (AUTO) 83.8 % (42-75); PLATELET COUNT 304 X10'3 (140-440); RED BLOOD COUNT 4.32 X10'6 (4.70-6.10); RED CELL DISTRIBUTION WIDTH 15.2 % (11.5-14.5)
--- NOTE | 2019-06-17 06:56 | NUR ---
Pt refused morning accuchecks.
[2019-06-17 07:00] VITALS: BP 127/67
[2019-06-17] MEDS: docusate sodium 100mg/10ml UD cup PO SCH ×2 (08:00→20:00)
[2019-06-17] MEDS: enoxaparin 40mg/0.4ml syringe SUBCUT SCH (09:18)
[2019-06-17] MEDS: methylPREDNISolone sod succ/PF 40mg inj. IV SCH (09:18)
[2019-06-17] MEDS: famotidine/PF 10 mg/ml inj IV SCH ×2 (09:18→20:23)
[2019-06-17] MEDS: nicotine 21mg patch - 24 hr TD SCH (09:19)
--- NOTE | 2019-06-17 10:32 | NUR ---
Paged Amenao PAGER ID: [phone] MESSAGE: [id number]: German Thomas: Pt has hx of migraines, had PRN Morphine but d/c by Endy. May I have another medication to help ease the pain? Kindly advise -Dolly [phone]
[2019-06-17 11:00] VITALS: BP 108/66
[2019-06-17] MEDS ORDERED: aspirin/acetaminophen/caffeine tablet PO PRN (11:20)
--- NOTE | 2019-06-17 11:45 | NUR ---
Pt refused 1200 accuchecks
[2019-06-17] MEDS: SUMAtriptan 25 MG tablet PO PRN (13:04)
[2019-06-17 17:00] VITALS: BP 140/84
--- NOTE | 2019-06-17 17:05 | NUR ---
Refused 1700 accucheck
[2019-06-17 18:00] VITALS: BP 121/70
--- NOTE | 2019-06-17 18:15 | NUR ---
Patient in room U 3016. I have received report from Dolly RINCON and had the opportunity to ask questions and assume patient care. Patient is up with his rehab walker, he has a goal to walk Q2h.
--- NOTE | 2019-06-17 18:17 | NUR ---
Problems reprioritized. Patient report given, questions answered & plan of care reviewed with Kayli.
--- NOTE | 2019-06-17 19:31 | NUR ---
Problems reprioritized. Patient report given, questions answered & plan of care reviewed with Arvind RINCON.
[2019-06-17] MEDS: nortriptyline 10mg capsule PO SCH (20:22)
[2019-06-17] MEDS: Melatonin 3mg tablet PO SCH (20:23)
[2019-06-17] MEDS: sennosides/docusate sodium tablet PO SCH (20:23)
[2019-06-17] MEDS: clonazePAM 1mg tablet PO SCH (20:23)
[2019-06-17] MEDS: insulin glargine (Lantus) pen - multi-dose SQ SCH (20:34)
[2019-06-17 22:00] VITALS: BP 104/68
[2019-06-18 02:00] VITALS: BP 122/69
[2019-06-18] MEDS: ipratropium/albuterol 3ml nebule NEB SCH ×6 (02:52→23:00)
[2019-06-18 06:10] LABS: BASOPHILS % (AUTO) 0.1 % (0-1); EOSINOPHILS # (AUTO) 0.1 X10'3 (0-0.9); EOSINOPHILS % (AUTO) 0.9 % (0-6); HEMATOCRIT 38.3 % (42.0-52.0); LYMPHOCYTES # (AUTO) 2.6 X10'3 (1.1-4.8); LYMPHOCYTES % (AUTO) 23.4 % (21-51); MEAN CORPUSCULAR HEMOGLOBIN 31.9 PG (27.0-31.0); MEAN CORPUSCULAR HGB CONC 34.1 g/dL (33.0-36.5); MEAN CORPUSCULAR VOLUME 93.7 FL (78-98); MONOCYTES # (AUTO) 0.9 X10'3 (0-0.9); MONOCYTES % (AUTO) 8.5 % (2-12); NEUTROPHILS # (AUTO) 7.3 X10'3 (1.8-7.7); NEUTROPHILS % (AUTO) 67.1 % (42-75); PLATELET COUNT 299 X10'3 (140-440); RED BLOOD COUNT 4.09 X10'6 (4.70-6.10); RED CELL DISTRIBUTION WIDTH 15.4 % (11.5-14.5); WHITE BLOOD COUNT 10.9 X10'3 (4.5-11.0)
[2019-06-18 06:21] LABS: ALANINE AMINOTRANSFERASE 36 U/L (12-78); ALBUMIN/GLOBULIN RATIO 1.2 (1.1-1.5); ALKALINE PHOSPHATASE 59 IU/L (46-116); ANION GAP 1 (8-16); ASPARTATE AMINO TRANSFERASE 9 U/L (10-37); BILIRUBIN,TOTAL 0.7 MG/DL (0.1-1.0); BLOOD UREA NITROGEN 14 MG/DL (7-18); BUN/CREATININE RATIO 27.5 (5.4-32.0); CALCIUM 8.6 MG/DL (8.5-10.1); CHLORIDE 106 MMOL/L (99-107); CREATININE 0.51 MG/DL (0.60-1.10); GLUCOSE 97 MG/DL (70-104); MAGNESIUM 1.8 MG/DL (1.5-2.4); PHOSPHORUS 4.1 MG/DL (2.3-4.5); POTASSIUM 3.7 MMOL/L (3.5-5.1); SODIUM 145 MMOL/L (135-145); TOTAL CARBON DIOXIDE 37.6 MMOL/L (24-32); TOTAL PROTEIN 5.6 G/DL (6.4-8.2); eGFR > 90 ML/MIN
--- NOTE | 2019-06-18 07:04 | NUR ---
Patient in room PCU 3016. I have received report from SERGEY SCHULZ and had the opportunity to ask questions and assume patient care.
[2019-06-18] MEDS: docusate sodium 100mg/10ml UD cup PO SCH ×2 (07:46→20:00)
[2019-06-18] MEDS: clonazePAM 1mg tablet PO SCH ×2 (07:46→21:39)
[2019-06-18] MEDS: famotidine/PF 10 mg/ml inj IV SCH ×2 (07:46→21:38)
[2019-06-18] MEDS: enoxaparin 40mg/0.4ml syringe SUBCUT SCH (07:49)
[2019-06-18] MEDS: nicotine 21mg patch - 24 hr TD SCH (07:50)
[2019-06-18] MEDS: SUMAtriptan 25 MG tablet PO PRN ×2 (07:51→22:06)
--- NOTE | 2019-06-18 10:29 | NUR ---
refused Addendum: 06/18/19 at 1030 by Humberto Zaldivar RN Amended: Links added.
[2019-06-18 11:00] VITALS: BP 122/82
--- NOTE | 2019-06-18 12:07 | NUR ---
refused accucheck. Addendum: 06/18/19 at 1211 by Humberto Zaldivar RN Amended: Links added.
--- NOTE | 2019-06-18 12:10 | NUR ---
patient refused 1200 accucheck
[2019-06-18 15:00] VITALS: BP 105/74
[2019-06-18] MEDS: predniSONE 20 mg tablet PO SCH (16:15)
--- NOTE | 2019-06-18 17:04 | NUR ---
PAGER ID: [phone] MESSAGE: DR. HUGHES, 5646T/[place], HAS A HAND WRITTEN LIST OF THINGS HE IS REQUESTING FROM YOU PRIOR TO DISCHARGE. HE VERBALIZED TO ME HE HAS BEEN DISCHARGED FROM HERE BEFORE WITH MANY PROBLEMS IDENTIFIED AFTER LEAVING. BHARATH [phone]. TY.
--- NOTE | 2019-06-18 17:07 | NUR ---
patient refused 1700 accucheck
--- NOTE | 2019-06-18 17:08 | NUR ---
REFUSED ACCUCHECK. Addendum: 06/18/19 at 1710 by Humberto Zaldivar RN Amended: Links added.
[2019-06-18 18:00] VITALS: BP 150/77
--- NOTE | 2019-06-18 18:20 | NUR ---
Problems reprioritized. Patient report given, questions answered & plan of care reviewed with SERGEY SOTELO.
[2019-06-18] MEDS: insulin glargine (Lantus) pen - multi-dose SQ SCH (21:00)
[2019-06-18] MEDS: sennosides/docusate sodium tablet PO SCH (21:00)
[2019-06-18] MEDS: nortriptyline 10mg capsule PO SCH (21:38)
[2019-06-18] MEDS: Melatonin 3mg tablet PO SCH (21:39)
[2019-06-18 22:00] VITALS: BP 99/72
[2019-06-19 02:00] VITALS: BP 97/54
[2019-06-19] MEDS: ipratropium/albuterol 3ml nebule NEB SCH ×3 (03:48→12:38)
[2019-06-19 05:58] LABS: BASOPHILS % (AUTO) 0.1 % (0-1); EOSINOPHILS % (AUTO) 0.4 % (0-6); HEMOGLOBIN 12.7 g/dl (14.0-17.9); LYMPHOCYTES # (AUTO) 1.9 X10'3 (1.1-4.8); LYMPHOCYTES % (AUTO) 16.1 % (21-51); MEAN CORPUSCULAR HEMOGLOBIN 31.1 PG (27.0-31.0); MEAN CORPUSCULAR HGB CONC 33.4 g/dL (33.0-36.5); MEAN CORPUSCULAR VOLUME 93.1 FL (78-98); MONOCYTES # (AUTO) 0.8 X10'3 (0-0.9); MONOCYTES % (AUTO) 6.7 % (2-12); NEUTROPHILS # (AUTO) 9.2 X10'3 (1.8-7.7); NEUTROPHILS % (AUTO) 76.7 % (42-75); PLATELET COUNT 305 X10'3 (140-440); RED BLOOD COUNT 4.08 X10'6 (4.70-6.10); RED CELL DISTRIBUTION WIDTH 15.3 % (11.5-14.5); WHITE BLOOD COUNT 11.9 X10'3 (4.5-11.0)
[2019-06-19 06:00] VITALS: BP 100/63
[2019-06-19 06:11] LABS: ALANINE AMINOTRANSFERASE 37 U/L (12-78); ALBUMIN/GLOBULIN RATIO 1.2 (1.1-1.5); ALKALINE PHOSPHATASE 61 IU/L (46-116); ANION GAP -1 (8-16); ASPARTATE AMINO TRANSFERASE 13 U/L (10-37); BILIRUBIN,TOTAL 0.6 MG/DL (0.1-1.0); BLOOD UREA NITROGEN 14 MG/DL (7-18); BUN/CREATININE RATIO 31.8 (5.4-32.0); CALCIUM 7.9 MG/DL (8.5-10.1); CHLORIDE 107 MMOL/L (99-107); CREATININE 0.44 MG/DL (0.60-1.10); GLUCOSE 81 MG/DL (70-104); MAGNESIUM 1.7 MG/DL (1.5-2.4); PHOSPHORUS 4.1 MG/DL (2.3-4.5); POTASSIUM 3.7 MMOL/L (3.5-5.1); PREALBUMIN 25.7 MG/DL (19-36); SODIUM 143 MMOL/L (135-145); TOTAL CARBON DIOXIDE 37.1 MMOL/L (24-32); TOTAL PROTEIN 5.6 G/DL (6.4-8.2); eGFR > 90 ML/MIN
--- NOTE | 2019-06-19 06:30 | NUR ---
Patient in room PCU 3016. I have received report from SERGEY SOTELO and had the opportunity to ask questions and assume patient care.
[2019-06-19 07:00] LABS: ABG BASE EXCESS -3.2 mmol/L (-2.0-3.0); ABG HCO3 27.2 mmol/L (22.0-26.0); ABG OXYGEN SATURATION 97.8 % (95-98); ABG PCO2 (T) 75.7 mmHg (35.0-45.0); ABG PH (T) 7.173 (7.350-7.450); ABG PO2 (T) 128.3 mmHg (83-108); ALLEN'S TEST POSITIVE; FCOHb 2.4 % (0.5-1.5); FMetHb 0.2 % (0.3-1.12); FO2Hb 95.3 % (94-100); RESPIRATORY RATE 18 b/min; TIDAL VOLUME 471 mL; TOTAL HEMOGLOBIN 14.4 G/dl (14.0-17.9)
--- NOTE | 2019-06-19 07:00 | NUR ---
patient refused 0700 accucheck
[2019-06-19] MEDS: enoxaparin 40mg/0.4ml syringe SUBCUT SCH (08:00)
[2019-06-19] MEDS: docusate sodium 100mg/10ml UD cup PO SCH (08:00)
[2019-06-19] MEDS: nicotine 21mg patch - 24 hr TD SCH (08:13)
[2019-06-19] MEDS: famotidine/PF 10 mg/ml inj IV SCH (08:14)
[2019-06-19] MEDS: clonazePAM 1mg tablet PO SCH (08:18)
[2019-06-19] MEDS: predniSONE 20 mg tablet PO SCH (08:19)
[2019-06-19] MEDS: SUMAtriptan 25 MG tablet PO PRN (08:24)
--- NOTE | 2019-06-19 10:04 | NUR ---
REFUSED ACCUCHECK Addendum: 06/19/19 at 1007 by Humberto Zaldivar RN Amended: Links added.
[2019-06-19 11:00] VITALS: BP 115/61
--- NOTE | 2019-06-19 12:44 | NUR ---
REFUSED ACCUCHECK Addendum: 06/19/19 at 1245 by Humberto Zaldivar RN Amended: Links added.
[2019-06-19] MEDS ORDERED: NICO-687 TD (13:19)
[2019-06-19] MEDS ORDERED: NORT10CA2 PO (13:19)
[2019-06-19] MEDS ORDERED: PRED20TA PO (13:19)
[2019-06-19] MEDS ORDERED: CLON1TAB12 PO (13:19)
--- NOTE | 2019-06-19 14:39 | NUR ---
PT WAS SEEN AMB AROUND UNIT WITH REHAB WALKER. REHAB WALKER FOUND IN [facility]. SUNDAY MCCAULEY RN NOTIFIED ALONG WITH DR. HUGHES. APPARENTLY LEFT AMA. HE DID NOT SAY ANYTHING BEFORE LEAVING.DID NOT GET YO DC HIS PIV BEFORE LEAVING. DO NOT FIND IT IN ROOM.
== END 2019-06-19 14:30 | disposition left against medical advice (07) | DRG 207 ==
LOC: ER 14:41 → ED HOLD 17:48 → ICU 2S 20:03 → PCU 3S 06-14 12:26
PROVIDERS: ADMIT Internal Medicine Critical Care Medicine; ATTEND Internal Medicine Critical Care Medicine
PROC: 0BH17EZ Insertion of Endotracheal Airway into Trachea, Via Natural or Artificial Opening (ICD-10-PCS; principal; 2019-06-06)
PROC: 5A1955Z Respiratory Ventilation, Greater than 96 Consecutive Hours (ICD-10-PCS; 2019-06-06)
PROC: 02HV33Z Insertion of Infusion Device into Superior Vena Cava, Percutaneous Approach (ICD-10-PCS; 2019-06-06)
PROC: 5A09457 Assistance with Respiratory Ventilation, 24-96 Consecutive Hours, Continuous Positive Airway Pressure (ICD-10-PCS; 2019-06-11)
PROC: 5A09357 Assistance with Respiratory Ventilation, Less than 24 Consecutive Hours, Continuous Positive Airway Pressure (ICD-10-PCS; 2019-06-12)
PROC: 5A09357 Assistance with Respiratory Ventilation, Less than 24 Consecutive Hours, Continuous Positive Airway Pressure (ICD-10-PCS; 2019-06-13)
DX: J96.21 Acute and chronic respiratory failure with hypoxia (principal); J18.9 Pneumonia, unspecified organism; J44.1 Chronic obstructive pulmonary disease with (acute) exacerbation; J44.0 Chronic obstructive pulmonary disease with (acute) lower respiratory infection; Z53.29 Procedure and treatment not carried out because of patient's decision for other reasons; F17.200 Nicotine dependence, unspecified, uncomplicated; F41.9 Anxiety disorder, unspecified; G43.909 Migraine, unspecified, not intractable, without status migrainosus; I25.10 Atherosclerotic heart disease of native coronary artery without angina pectoris; N48.5 Ulcer of penis; M81.0 Age-related osteoporosis without current pathological fracture; Z59.0 Homelessness; Z79.899 Other long term (current) drug therapy; Z86.73 Personal history of transient ischemic attack (TIA), and cerebral infarction without residual deficits; Z88.1 Allergy status to other antibiotic agents; Z88.8 Allergy status to other drugs, medicaments and biological substances
CPT/HCPCS: 31500; 36415; 36600; 71045; 76937; 80053; 82803; 82810; 82948; 83036; 83735; 83880; 84100; 84134; 84145; 84478; 84484; 85018; 85025; 85610; 85730; 86592; 86703; 87070; 87081; 87491; 87502; 87503; 92508; 92616; 93005; 94002; 94003; 94640; 94660; 94760; 97110; 97112; 97116; 97162; 97530; 97535; 99291; G0378; J0456; J0696; J1650; J1815; J2060; J2250; J2270; J2405; J2704; J2920; J2930; J3010; J3475; J3490; J7030; J7512

== ENCOUNTER 2019-06-28 19:57 | Inpatient (IN) | payer MEDICARE, MEDICAID ==
[~2019-06-28] VITALS: Ht 188 cm; Wt 71.4 kg
[~2019-06-28 19:57] MED LIST changes: +ALBU2.5V10 INH; -ALBU8.5H8 INH; -AMOX-580 PO; -AZIT500T9 PO; +CLON1TAB12 PO; +NICO-687 TD; +NORT10CA2 PO; +PANT-47 PO; -PANT40TA4 PO; -PRED10TA23 PO; +PRED20TA PO; +SUMA100T16 PO; +TOPI25TA49 PO
[2019-06-28] MEDS ORDERED: ipratropium/albuterol 3ml nebule NEB ONE (20:05)
[2019-06-28] MEDS ORDERED: methylPREDNISolone sod succ 125mg/2ml vial IV ONE (20:05)
[2019-06-28] MEDS ORDERED: albuterol 2.5 MG/3 ML nebule NEB ONE (20:05)
[2019-06-28] MEDS ORDERED: normal saline 1000ML IV soln IVB ONE (20:05)
[2019-06-28 20:49] LABS: BASOPHILS # (AUTO) 0.2 X10'3 (0-0.2); BASOPHILS % (AUTO) 1.3 % (0-1); EOSINOPHILS # (AUTO) 0.1 X10'3 (0-0.9); EOSINOPHILS % (AUTO) 0.7 % (0-6); HEMATOCRIT 41.8 % (42.0-52.0); HEMOGLOBIN 14.1 g/dl (14.0-17.9); LYMPHOCYTES % (AUTO) 7.3 % (21-51); MEAN CORPUSCULAR HEMOGLOBIN 31.8 PG (27.0-31.0); MEAN CORPUSCULAR HGB CONC 33.7 g/dL (33.0-36.5); MEAN CORPUSCULAR VOLUME 94.4 FL (78-98); MEAN PLATELET VOLUME 7.3 FL (7.4-10.4); MONOCYTES # (AUTO) 0.6 X10'3 (0-0.9); MONOCYTES % (AUTO) 4.5 % (2-12); NEUTROPHILS # (AUTO) 11.5 X10'3 (1.8-7.7); NEUTROPHILS % (AUTO) 86.2 % (42-75); PLATELET COUNT 370 X10'3 (140-440); RED BLOOD COUNT 4.43 X10'6 (4.70-6.10); RED CELL DISTRIBUTION WIDTH 15.3 % (11.5-14.5); WHITE BLOOD COUNT 13.3 X10'3 (4.5-11.0)
[2019-06-28 21:04] LABS: ALANINE AMINOTRANSFERASE 30 U/L (12-78); ALBUMIN 3.3 G/DL (3.4-5.0); ALKALINE PHOSPHATASE 78 IU/L (46-116); ANION GAP 1 (8-16); ASPARTATE AMINO TRANSFERASE 14 U/L (10-37); BILIRUBIN,TOTAL 0.4 MG/DL (0.1-1.0); BLOOD UREA NITROGEN 10 MG/DL (7-18); BUN/CREATININE RATIO 16.4 (5.4-32.0); CALCIUM 7.8 MG/DL (8.5-10.1); CHLORIDE 106 MMOL/L (99-107); CREATININE 0.61 MG/DL (0.60-1.10); GLUCOSE 113 MG/DL (70-104); POTASSIUM 3.7 MMOL/L (3.5-5.1); SODIUM 143 MMOL/L (135-145); TOTAL CARBON DIOXIDE 35.7 MMOL/L (24-32); TOTAL PROTEIN 6.7 G/DL (6.4-8.2); eGFR > 90 ML/MIN
[2019-06-28] MEDS ORDERED: proCHLORperazine 10 MG/2 ml inj IV ONE (21:15)
[2019-06-28 21:31] LABS: TOTAL CELLS COUNTED 100
[2019-06-28 21:32] LABS: PLATELET ESTIMATE NORMAL
[2019-06-28] MEDS ORDERED: azithromycin/NS 500mg/250ml 250 ML IV ONE (21:45)
[2019-06-28] MEDS ORDERED: diazepam 5mg tablet PO ONE (22:30)
[2019-06-28] MEDS ORDERED: normal saline 1000ml 1,000 ML IV SCH (22:33)
[2019-06-28] MEDS ORDERED: ondansetron/PF 4mg/2ml inj IV PRN (22:35)
[2019-06-28] MEDS ORDERED: potassium CL 10mEq/100ml bag 100 ML IV PRN ×2 (22:35)
[2019-06-28] MEDS ORDERED: magnesium 4gm in 100ml NS 100 ML IV PRN (22:35)
[2019-06-28] MEDS ORDERED: acetaminophen 325mg tablet PO PRN (22:35)
[2019-06-28] MEDS ORDERED: potassium Cl 20 mEq SR tablet PO PRN ×2 (22:35)
[2019-06-28] MEDS ORDERED: magnesium 2GM in 50ml NS 50 ML IV PRN (22:35)
[2019-06-28] MEDS ORDERED: ipratropium/albuterol 3ml nebule NEB PRN ×2 (22:35)
[2019-06-28] MEDS ORDERED: magnesium Cl slow-release 64mg tablet PO PRN (22:35)
--- NOTE | 2019-06-28 23:12 | NUR ---
Pt refusing to have blood drawn for 3 hr tropPanda HO made aware.
[2019-06-29] VITALS: BP 119/65
--- NOTE | 2019-06-29 00:05 | NUR ---
Received patient report from Kolton from ER. Received patient via Saffron Digitalerny. Patient scooted from Guerny to bed. VSS, no c/o of discomfort.
[2019-06-29 02:18] LABS: BASOPHILS % (AUTO) 0.2 % (0-1); EOSINOPHILS % (AUTO) 0 % (0-6); HEMOGLOBIN 13.2 g/dl (14.0-17.9); LYMPHOCYTES # (AUTO) 0.3 X10'3 (1.1-4.8); LYMPHOCYTES % (AUTO) 3.2 % (21-51); MEAN CORPUSCULAR HEMOGLOBIN 31.3 PG (27.0-31.0); MEAN CORPUSCULAR VOLUME 94.6 FL (78-98); MEAN PLATELET VOLUME 7.5 FL (7.4-10.4); MONOCYTES % (AUTO) 0.4 % (2-12); NEUTROPHILS # (AUTO) 8.4 X10'3 (1.8-7.7); NEUTROPHILS % (AUTO) 96.2 % (42-75); PLATELET COUNT 339 X10'3 (140-440); RED BLOOD COUNT 4.23 X10'6 (4.70-6.10); RED CELL DISTRIBUTION WIDTH 15.4 % (11.5-14.5); WHITE BLOOD COUNT 8.7 X10'3 (4.5-11.0)
[2019-06-29 02:28] LABS: ALBUMIN 2.8 G/DL (3.4-5.0); ANION GAP 10 (8-16); BLOOD UREA NITROGEN 7 MG/DL (7-18); BUN/CREATININE RATIO 7.7 (5.4-32.0); CALCIUM 7.4 MG/DL (8.5-10.1); CHLORIDE 107 MMOL/L (99-107); CREATININE 0.91 MG/DL (0.60-1.10); GLUCOSE 317 MG/DL (70-104); MAGNESIUM 1.5 MG/DL (1.5-2.4); POTASSIUM 3.9 MMOL/L (3.5-5.1); SODIUM 146 MMOL/L (135-145); TOTAL CARBON DIOXIDE 29.1 MMOL/L (24-32); eGFR 83 ML/MIN
--- NOTE | 2019-06-29 06:17 | NUR ---
Problems reprioritized. Patient report given, questions answered & plan of care reviewed with SERGEY Agarwal.
--- NOTE | 2019-06-29 06:34 | NUR ---
Problems reprioritized. Patient report given, questions answered & plan of care reviewed with Any RINCON.
[2019-06-29 07:31] VITALS: BP 109/62
[2019-06-29] MEDS: K and/or MAG REPLACEMENT MC SCH ×2 (08:00→20:00)
[2019-06-29] MEDS: CefTRIAXone/D5W-Rocephin 1gm 50 ML IV SCH (08:44)
[2019-06-29] MEDS: methylPREDNISolone sod succ/PF 40mg inj. IV SCH ×2 (08:47→21:31)
[2019-06-29] MEDS: heparin, porcine 5000 units/ml vial SQ SCH ×2 (08:49→21:31)
--- NOTE | 2019-06-29 09:15 | NUR ---
Pt states: new onset bilat foot numbness new onset inability to walk r/t bilat. leg weakness Palpable pulse on L foot, doppler right, pulse found. No redness, edema, swelling. Pt. has light weakness bilat. upper extremities. Able to lift each leg independently, though light weakness against resistance. Addendum: 06/29/19 at 0923 by Any Vieyra RN Amended: Links added.
[2019-06-29] MEDS ORDERED: ipratropium/albuterol 3ml nebule IH PRN (11:55)
[2019-06-29 11:57] VITALS: BP 106/68
--- NOTE | 2019-06-29 12:26 | NUR ---
PAGER ID: [phone] MESSAGE: LUCY MIGUEL 357 CALCIUM 7.4, NA 146 , VENOUS GLUCOSE 317 LAST NIGHT, DO YOU WANT TO ORDER ACCUCHECKS WITH PROTOCOL? PT. NEEDS PT ORDER STATES HE WAS WALKING 1 WK AGO AND CANT NOW, DO YOU WANT MG? PATRIC 1398
[2019-06-29] MEDS: ipratropium/albuterol 3ml nebule NEB SCH ×4 (14:40→23:18)
--- NOTE | 2019-06-29 15:00 | NUR ---
Spoke with MD Schumacher. He is aware of pt's high glucose last night in veinous draw. Pt. is on steroids, and feels there is no need to check BG.
--- NOTE | 2019-06-29 16:01 | NUR ---
PAGER ID: [phone] MESSAGE: German Thomas 357 Tele called. 12 beat SVT. currently SR with HR in 90s. Frequent PVCs. BP 120/74, RR 22, 97% 2LPM. Do you want to see tele strips? Any [phone]
[2019-06-29] MEDS ORDERED: magnesium 2GM in 50ml NS 50 ML IV ONE (17:15)
[2019-06-29 18:00] VITALS: BP 107/55
--- NOTE | 2019-06-29 18:54 | NUR ---
GAVE REPORT TO IMANI RINCON AND CUCO RINCON ORIENTED.
--- NOTE | 2019-06-29 19:16 | NUR ---
Non-administered proventil RT treatment from 06/28 @ 1999 as we were told it was given in ER upon admission, We had spoke to RT in regards to non-administering or documenting the administration on 06/28 in the evening, and the medication was still there today 06/29 in the red blocking status board of upcoming medications. To leave the medication on the eMar as red may have caused med errors in that we feel upcoming medications could have been missed.
[2019-06-29] MEDS: budesonide 0.5mg/2ml UD nebule IH SCH (19:36)
[2019-06-29] MEDS ORDERED: non-formulary drug (Budesonide/Formoterol Fumarate (Symbicort 80-4.5 Mcg Inhaler) 2 PUFFS) INH SCH (20:00)
[2019-06-29] MEDS ORDERED: Melatonin 3mg tablet PO SCH (21:00)
[2019-06-29] MEDS ORDERED: azithromycin/NS 500mg/250ml 250 ML IV SCH (21:00)
[2019-06-29] MEDS ORDERED: nortriptyline 10mg capsule PO SCH (21:00)
[2019-06-29] MEDS: topiramate 25mg tablet PO SCH (21:30)
[2019-06-29] MEDS: lactobacillus rhamnosus 10,000 MMU CELLS/CAPSULE PO SCH (21:30)
[2019-06-29] MEDS: clonazePAM 1mg tablet PO SCH (21:30)
[2019-06-30] VITALS: BP 113/73
[2019-06-30] MEDS: ipratropium/albuterol 3ml nebule NEB SCH ×3 (03:22→11:12)
[2019-06-30 05:26] LABS: BASOPHILS % (AUTO) 0.1 % (0-1); EOSINOPHILS % (AUTO) 0 % (0-6); HEMATOCRIT 37.4 % (42.0-52.0); HEMOGLOBIN 12.4 g/dl (14.0-17.9); LYMPHOCYTES # (AUTO) 0.5 X10'3 (1.1-4.8); LYMPHOCYTES % (AUTO) 4.3 % (21-51); MEAN CORPUSCULAR HGB CONC 33.1 g/dL (33.0-36.5); MEAN CORPUSCULAR VOLUME 93.7 FL (78-98); MEAN PLATELET VOLUME 7.5 FL (7.4-10.4); MONOCYTES # (AUTO) 0.2 X10'3 (0-0.9); MONOCYTES % (AUTO) 1.9 % (2-12); NEUTROPHILS # (AUTO) 10.7 X10'3 (1.8-7.7); NEUTROPHILS % (AUTO) 93.7 % (42-75); PLATELET COUNT 338 X10'3 (140-440); RED BLOOD COUNT 3.99 X10'6 (4.70-6.10); RED CELL DISTRIBUTION WIDTH 15.1 % (11.5-14.5); WHITE BLOOD COUNT 11.4 X10'3 (4.5-11.0)
[2019-06-30 05:29] LABS: ALBUMIN 2.7 G/DL (3.4-5.0); ANION GAP 5 (8-16); BLOOD UREA NITROGEN 15 MG/DL (7-18); BUN/CREATININE RATIO 19.2 (5.4-32.0); CALCIUM 8.1 MG/DL (8.5-10.1); CHLORIDE 106 MMOL/L (99-107); CREATININE 0.78 MG/DL (0.60-1.10); GLUCOSE 229 MG/DL (70-104); MAGNESIUM 1.9 MG/DL (1.5-2.4); POTASSIUM 4.1 MMOL/L (3.5-5.1); SODIUM 143 MMOL/L (135-145); TOTAL CARBON DIOXIDE 32.3 MMOL/L (24-32); eGFR > 90 ML/MIN
--- NOTE | 2019-06-30 06:28 | NUR ---
Problems reprioritized. Patient report given, questions answered & plan of care reviewed with SERGEY Agarwal.
[2019-06-30] MEDS: budesonide 0.5mg/2ml UD nebule IH SCH (07:00)
[2019-06-30] MEDS: CefTRIAXone/D5W-Rocephin 1gm 50 ML IV SCH (07:16)
[2019-06-30] MEDS: methylPREDNISolone sod succ/PF 40mg inj. IV SCH (07:18)
[2019-06-30] MEDS: lactobacillus rhamnosus 10,000 MMU CELLS/CAPSULE PO SCH (07:19)
[2019-06-30] MEDS: clonazePAM 1mg tablet PO SCH (07:19)
[2019-06-30] MEDS: topiramate 25mg tablet PO SCH (07:19)
[2019-06-30] MEDS: heparin, porcine 5000 units/ml vial SQ SCH (07:19)
[2019-06-30] MEDS: K and/or MAG REPLACEMENT MC SCH (07:20)
[2019-06-30] MEDS ORDERED: pantoprazole 40mg Tablet.DR PO SCH (08:00)
[2019-06-30] MEDS ORDERED: SUMAtriptan 25 MG tablet PO PRN (08:00)
[2019-06-30 09:00] VITALS: BP 109/63
--- NOTE | 2019-06-30 09:10 | NUR ---
Called [facility] spoke with [place], who agrees pt. is receiving services from them. Addendum: 06/30/19 at 0917 by Any Vieyra RN She states pt. does not have small back pack portable tank, but has larger rolling 02 tanks. The pt. states he leaves these at home because he cannot carry them due to not being able to walk. Will notify CM.
--- NOTE | 2019-06-30 10:00 | NUR ---
MD Schumacher made aware of positive MRSA nasal swab. Pt. aware and provided education.
[2019-06-30] MEDS ORDERED: PRED10TA23 PO (10:31)
[2019-06-30] MEDS ORDERED: DOXY100C2 PO (10:31)
--- NOTE | 2019-06-30 10:33 | NUR ---
[facility] unable to provide portable 02 r/t [facility] and the supply would likely be stolen per DHARMESH Rueda. Pt. aware aware of slight drop in H&H. No new orders at this time. PT aware to meet with pt. before DC.
[2019-06-30 11:00] VITALS: BP 115/65
--- NOTE | 2019-06-30 16:10 | NUR ---
Pt. discharged around 1350. Tele DC'd and returned. IV DC'd and returned. Reviewed pt. discharge paperwork with pt. He is aware to picket labor union piscriptions at [facility] on [address]. Taxi arranged by rn progressive care unit paid for by hospital to transport pt. Basically pt. needed: lots of food, extra plastic bags, hygiene products, briefs, chucks, clonazepam, transport oxygen, power wheelchair, note for bedrest at [place], portable O2 tank. Everything was provided to him except for the bedrest note, which he did not qualify for and the transport oxygen which he left without. DHARMESH called to say pt. needed to speak with Idris because an address was needed for 02 tank picket labor union (pt. has DME and 02 at [place]) and the pt. lived at the [place]. Pt. was provided a phone and phone number and given these directions, however he did not provide an address to have 02 tank picked up at. He told this RN that the [employer] said they would deliver transport 02 in 10-15 minutes downstairs. A taxi ride was arranged and ETA was 10-15 minutes. Student volunteered to take pt. downstairs to wait for 02. She was told to wait until portable 02 arrived for pt before pt. left in taxi, however she forgot and misunderstood thinking the hospital 02 tank was the pt's to leave with. She also stated the patient coordinator front desk told her "there was no 02 coming". This RN returned from break and over a half hour after discharge Idris showed up with 02 for transport. The whole story was revealed and they were sent away with their 02. Damian brought back hospital 02 from [place].
== END 2019-06-30 13:51 | disposition home or self-care (01) | DRG 189 ==
LOC: ER 19:58 → SUR 3N 23:52 → CMPBEDREQ 23:56
PROVIDERS: ADMIT Internal Medicine; ATTEND Family Medicine
DX: J96.21 Acute and chronic respiratory failure with hypoxia (principal); J44.1 Chronic obstructive pulmonary disease with (acute) exacerbation; F41.9 Anxiety disorder, unspecified; F12.90 Cannabis use, unspecified, uncomplicated; G43.909 Migraine, unspecified, not intractable, without status migrainosus; K21.9 Gastro-esophageal reflux disease without esophagitis; G47.00 Insomnia, unspecified; M81.0 Age-related osteoporosis without current pathological fracture; Z85.828 Personal history of other malignant neoplasm of skin; Z87.891 Personal history of nicotine dependence; Z97.0 Presence of artificial eye; Z99.81 Dependence on supplemental oxygen
CPT/HCPCS: 36415; 71045; 80048; 80053; 82948; 83735; 83880; 84484; 85025; 87081; 93005; 94640; 94760; 96374; 96375; 97161; 97530; 99285; G0378; J0456; J0696; J0780; J1644; J2920; J2930; J3475; J7030; J7626

== ENCOUNTER 2019-07-26 19:30 | Inpatient (IN) | payer MEDICAID, MEDICARE, OTHER ==
[~2019-07-26] VITALS: Ht 188 cm; Wt 61.7 kg
[~2019-07-26 19:30] MED LIST changes: +MELA3TAB39 PO; -MELA3TAB64 PO; -NICO-687 TD; +PRED10TA23 PO; -PRED20TA PO; +epiNEPHrine 0.1mg/ml 10ml syringe ONE
[2019-07-26] MEDS ORDERED: albuterol 2.5 MG/3 ML nebule CONTNEB PRN (19:50)
[2019-07-26] MEDS ORDERED: methylPREDNISolone sod succ 125mg/2ml vial IV ONE (19:50)
--- NOTE | 2019-07-26 20:00 | NUR ---
PT AGGITATED AND NOT WANTING TO ANSWER QUESTIONS, DEMANDS LIGHTS BE TURNED OFF DUE TO MIGRAINE. PT TOLD WE NEED TO GET LABS AND IMAGING DOEN FIRST BEFORE COMFORT CAN BE PROVIDED. PT STILL DEMANDED LIGHT TURNED OFF
[2019-07-26 20:05] LABS: BASOPHILS % (AUTO) 0.3 % (0-1); EOSINOPHILS % (AUTO) 0 % (0-6); HEMATOCRIT 45.6 % (42.0-52.0); HEMOGLOBIN 15.3 g/dl (14.0-17.9); LYMPHOCYTES # (AUTO) 1.3 X10'3 (1.1-4.8); LYMPHOCYTES % (AUTO) 13.1 % (21-51); MEAN CORPUSCULAR HEMOGLOBIN 32.1 PG (27.0-31.0); MEAN CORPUSCULAR HGB CONC 33.5 g/dL (33.0-36.5); MEAN CORPUSCULAR VOLUME 95.8 FL (78-98); MEAN PLATELET VOLUME 7.5 FL (7.4-10.4); MONOCYTES # (AUTO) 0.7 X10'3 (0-0.9); MONOCYTES % (AUTO) 7.7 % (2-12); NEUTROPHILS # (AUTO) 7.5 X10'3 (1.8-7.7); NEUTROPHILS % (AUTO) 78.9 % (42-75); PLATELET COUNT 341 X10'3 (140-440); RED BLOOD COUNT 4.76 X10'6 (4.70-6.10); RED CELL DISTRIBUTION WIDTH 15.8 % (11.5-14.5); WHITE BLOOD COUNT 9.5 X10'3 (4.5-11.0)
[2019-07-26 20:05] LABS: ABG BASE EXCESS 3.4 mmol/L (-2.0-3.0); ABG HCO3 33.6 mmol/L (22.0-26.0); ABG OXYGEN SATURATION 92.8 % (95-98); ABG PCO2 (T) 77.3 mmHg (35.0-45.0); ABG PH (T) 7.253 (7.350-7.450); ABG PO2 (T) 64.6 mmHg (83-108); ALLEN'S TEST POSITIVE; FCOHb 8.2 % (0.5-1.5); FMetHb 0.1 % (0.3-1.12); FO2Hb 85.1 % (94-100); PATIENT TEMPERATURE 36.6
[2019-07-26 20:15] LABS: PARTIAL THROMBOPLASTIN TIME 27 SECONDS (22-32)
[2019-07-26 20:24] LABS: ALANINE AMINOTRANSFERASE 23 U/L (12-78); ALBUMIN/GLOBULIN RATIO 1.1 (1.1-1.5); ALKALINE PHOSPHATASE 78 IU/L (46-116); ANION GAP 1 (8-16); ASPARTATE AMINO TRANSFERASE 19 U/L (10-37); BILIRUBIN,TOTAL 0.5 MG/DL (0.1-1.0); BLOOD UREA NITROGEN 12 MG/DL (7-18); CALCIUM 8.7 MG/DL (8.5-10.1); CHLORIDE 101 MMOL/L (99-107); CREATININE 0.48 MG/DL (0.60-1.10); GLUCOSE 117 MG/DL (70-104); POTASSIUM 4.1 MMOL/L (3.5-5.1); SODIUM 143 MMOL/L (135-145); TOTAL PROTEIN 7.5 G/DL (6.4-8.2); TROPONIN I < 0.04 NG/ML (0.0-0.05); eGFR > 90 ML/MIN
[2019-07-26] MEDS ORDERED: acetaminophen 325mg tablet PO ONE (20:25)
[2019-07-26] MEDS ORDERED: LORazepam 2 mg/ml vial IV ONE (20:25)
--- NOTE | 2019-07-26 20:46 | NUR ---
PLEASE NOTE THAT THE SCANNER IS NOT CHARGED AND WILL NOT SCAN THE MED. HAYDEN RINCON VERIFIED 1 MG ADMINISTERED OF ATIVAN.
[2019-07-26] MEDS ORDERED: iohexol 350MG/ML 100ml bottle IV ONE (21:00)
--- NOTE | 2019-07-26 21:21 | NUR ---
CONTACT INFO: (CAREGIVER) KAY MONTANO [phone]
--- NOTE | 2019-07-26 21:28 | NUR ---
PT GOING TO CT, PT APPEARED TO BE UNCONSCIOUS, GRIMACING ONLY TO STERNAL RUB. TIFFANIE NORIEGA AT BEDSIDE AND TOLD HIM TO OPEN HIS EYES - WHICH HE DID IMMEDIATELY. HEAD COUNSELOR ATTEMPTED TO ASK QUESTIONS TO CONFIRM ALLERGIES, PT REFUSED TO ANSWER. PT BACK IN ROOM AND CONTINUES TO ACT PREVIOUSLY DESCRIBED. PT INSTRUCTED TO RECEIVE BEST CARE POSSIBLE HE CANNOT REFUSE TO ASK QUESTIONS OR ACT LIKE THIS. NO RESPONSE TO PT. VITALS ALL WITHIN NORMAL RANGE
[2019-07-26 23:01] LABS: ABG BASE EXCESS 6.2 mmol/L (-2.0-3.0); ABG HCO3 36.6 mmol/L (22.0-26.0); ABG PCO2 (T) 84.2 mmHg (35.0-45.0); ABG PH (T) 7.256 (7.350-7.450); ABG PO2 (T) 106.5 mmHg (83-108); ALLEN'S TEST POSITIVE; FCOHb 7.1 % (0.5-1.5); FMetHb 0.2 % (0.3-1.12); FO2Hb 90.8 % (94-100); RESPIRATORY RATE 16 b/min; TOTAL HEMOGLOBIN 14.4 G/dl (14.0-17.9)
[2019-07-27] VITALS (21 sets, daily range): BP systolic 69–121; BP diastolic 50–95
[2019-07-27 00:11] LABS: ABG BASE EXCESS 5.5 mmol/L (-2.0-3.0); ABG HCO3 36.2 mmol/L (22.0-26.0); ABG OXYGEN SATURATION 96.6 % (95-98); ABG PCO2 (T) 85.5 mmHg (35.0-45.0); ABG PH (T) 7.245 (7.350-7.450); ALLEN'S TEST POSITIVE; FCOHb 6.1 % (0.5-1.5); FMetHb 0.1 % (0.3-1.12); FO2Hb 90.6 % (94-100); RESPIRATORY RATE 20 b/min; TOTAL HEMOGLOBIN 14.7 G/dl (14.0-17.9)
[2019-07-27] MEDS ORDERED: ondansetron/PF 4mg/2ml inj IV PRN (00:15)
[2019-07-27] MEDS ORDERED: potassium Cl 20 mEq SR tablet PO PRN ×2 (00:15)
[2019-07-27] MEDS ORDERED: midazolam 100mg in NS 100ml 100 ML IV PRN ×3 (00:15→09:34)
[2019-07-27] MEDS: normal saline 1000ml 1,000 ML IV SCH ×2 (00:15→15:06)
[2019-07-27] MEDS ORDERED: LIDOcaine 2% 10ml TOPICAL JELLY (Urojet) TP ONE (00:15)
[2019-07-27] MEDS ORDERED: acetaminophen 325mg tablet PO PRN ×2 (00:15)
[2019-07-27] MEDS ORDERED: acetaminophen 650mg rectal suppository RC PRN (00:15)
[2019-07-27] MEDS ORDERED: FENTANYL-0.9 % NACL/PF 100 ML IV PRN ×3 (00:15→09:32)
[2019-07-27] MEDS ORDERED: potassium CL 10mEq/100ml bag 100 ML IV PRN ×2 (00:15)
[2019-07-27] MEDS ORDERED: morphine 4 MG/ML inj SYRINge IV PRN (00:15)
[2019-07-27] MEDS ORDERED: etomidate 2mg/ml inj. IV ONE (00:25)
[2019-07-27] MEDS ORDERED: rocuronium 10mg/ml inj IV ONE (00:25)
--- NOTE | 2019-07-27 00:29 | NUR ---
PT BP TO 79/44, CARLOS HO AND GROUNDHAND JOSEPHINE ALERTED. 1 L NS BOLUS STAT. JOSEPHINE CAME TO BEDSIDE TO EVALUATE BOLUS
[2019-07-27] MEDS ORDERED: normal saline 1000ml 1,000 ML IV ONE (01:05)
[2019-07-27 01:36] LABS: ABG BASE EXCESS 6.6 mmol/L (-2.0-3.0); ABG HCO3 33.3 mmol/L (22.0-26.0); ABG OXYGEN SATURATION 99.3 % (95-98); ABG PCO2 (T) 54.6 mmHg (35.0-45.0); ABG PH (T) 7.401 (7.350-7.450); ABG PO2 (T) 278.1 mmHg (83-108); ALLEN'S TEST POSITIVE; FMetHb 0.1 % (0.3-1.12); FO2Hb 94.2 % (94-100); PATIENT TEMPERATURE 36.5; PEEP 5 cm H2O; RESPIRATORY RATE 18 b/min; TIDAL VOLUME 500 mL; TOTAL HEMOGLOBIN 14.6 G/dl (14.0-17.9)
--- NOTE | 2019-07-27 01:41 | NUR ---
PT BP 70/49, JOSEPHINE CALLED AND VERBAL ORDER 500 ML NS BOLUS
[2019-07-27] MEDS: methylPREDNISolone sod succ/PF 40mg inj. IV SCH ×4 (02:00→20:05)
--- NOTE | 2019-07-27 02:15 | NUR ---
EDMD GONZALEZ AND IMMIGRATION ASSOCIATE LONNY MADE AWARE OF PT BP 67/33. TOOK VERBAL ORDER TO START LEVOPHED 0.05MCG/KG/MIN ON PERIPHERAL IV AND CARLOS WILL COME PLACE A CENTRAL LINE PATRICK
[2019-07-27] MEDS ORDERED: normal saline 1000ML IV soln IVB ONE (02:20)
[2019-07-27] MEDS ORDERED: NORepinephrine 8mg/ 250ml NS 250 ML IV ONE (02:23)
[2019-07-27] MEDS: NORepinephrine 8mg/ 250ml NS 250 ML IV SCH (02:41)
[2019-07-27] MEDS ORDERED: SUMA25TA9 PO (02:43)
[2019-07-27] MEDS ORDERED: DOXY100C76 PO (02:43)
[2019-07-27] MEDS ORDERED: ALBU8HFA PO (02:43)
[2019-07-27] MEDS ORDERED: PROC10TA10 PO (02:43)
[2019-07-27] MEDS: ipratropium/albuterol 3ml nebule NEB SCH ×6 (04:06→22:50)
--- NOTE | 2019-07-27 06:25 | NUR ---
0330..Patient in room CICU 2014. I have received report from weight inspector and had the opportunity to ask questions and assume patient care.
--- NOTE | 2019-07-27 06:27 | NUR ---
0400..Assessment as noted.
--- NOTE | 2019-07-27 06:28 | NUR ---
0625..Problems reprioritized. Patient report given, questions answered & plan of care reviewed with Michele RINCON.
[2019-07-27] MEDS: K, MAG and/or Phos replacement - Verify level? MC SCH ×2 (06:30→08:00)
--- NOTE | 2019-07-27 06:30 | NUR ---
Patient in room CICU 2014. I have received report from Linda RINCON and had the opportunity to ask questions and assume patient care.
[2019-07-27 08:01] LABS: MAGNESIUM 1.5 MG/DL (1.5-2.4)
[2019-07-27] MEDS ORDERED: sodium phosphate inj. 15 MMOL in dextrose 5%-water 250 ML IV ONE (08:55)
[2019-07-27] MEDS ORDERED: magnesium 4gm in 100ml NS 100 ML IV PRN (08:55)
[2019-07-27] MEDS ORDERED: sodium phosphate inj. 30 MMOL in dextrose 5%-water 250 ML IV ONE (08:55)
[2019-07-27] MEDS ORDERED: magnesium 2GM in 50ml NS 50 ML IV PRN (08:55)
[2019-07-27] MEDS: pantoprazole 40 MG vial IV SCH (09:18)
[2019-07-27] MEDS: levoFLOXACIN-Levaquin 500mg/D5 100 ML IV SCH (09:19)
[2019-07-27] MEDS: metroNIDAZOLE-Flagyl 500mg/NS 100 ML IV SCH ×2 (09:35→20:05)
[2019-07-27] MEDS: enoxaparin 40mg/0.4ml syringe SUBCUT SCH (09:36)
[2019-07-27 09:44] LABS: BASOPHILS % (AUTO) 0.1 % (0-1); EOSINOPHILS % (AUTO) 0 % (0-6); HEMATOCRIT 39.2 % (42.0-52.0); HEMOGLOBIN 12.9 g/dl (14.0-17.9); LYMPHOCYTES # (AUTO) 0.7 X10'3 (1.1-4.8); LYMPHOCYTES % (AUTO) 12.8 % (21-51); MEAN CORPUSCULAR HEMOGLOBIN 31.5 PG (27.0-31.0); MEAN CORPUSCULAR VOLUME 95.4 FL (78-98); MEAN PLATELET VOLUME 7.8 FL (7.4-10.4); MONOCYTES # (AUTO) 0.2 X10'3 (0-0.9); MONOCYTES % (AUTO) 4.4 % (2-12); NEUTROPHILS # (AUTO) 4.5 X10'3 (1.8-7.7); NEUTROPHILS % (AUTO) 82.7 % (42-75); PLATELET COUNT 300 X10'3 (140-440); RED BLOOD COUNT 4.11 X10'6 (4.70-6.10); RED CELL DISTRIBUTION WIDTH 15.4 % (11.5-14.5); WHITE BLOOD COUNT 5.4 X10'3 (4.5-11.0)
[2019-07-27 10:07] LABS: PARTIAL THROMBOPLASTIN TIME 27 SECONDS (22-32)
[2019-07-27 15:03] LABS: HEMATOCRIT 37.6 % (42.0-52.0); HEMOGLOBIN 12.6 g/dl (14.0-17.9); MEAN CORPUSCULAR HEMOGLOBIN 31.9 PG (27.0-31.0); MEAN CORPUSCULAR HGB CONC 33.6 g/dL (33.0-36.5); MEAN CORPUSCULAR VOLUME 94.9 FL (78-98); MEAN PLATELET VOLUME 7.6 FL (7.4-10.4); PLATELET COUNT 288 X10'3 (140-440); RED BLOOD COUNT 3.96 X10'6 (4.70-6.10); RED CELL DISTRIBUTION WIDTH 15.4 % (11.5-14.5); WHITE BLOOD COUNT 4.7 X10'3 (4.5-11.0)
[2019-07-27 15:10] LABS: MAGNESIUM 1.5 MG/DL (1.5-2.4); POTASSIUM 3.4 MMOL/L (3.5-5.1)
[2019-07-27] MEDS: potassium Cl 20mEq/100mL bag 100 ML IV PRN ×2 (15:43→16:52)
--- NOTE | 2019-07-27 15:58 | NUR ---
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 OG in place w/ MAP 72 today. TF to start today per MD. No BM yet. TF recs below given intubation needs. Will monitor for TF tolerance. Rec: 1. TF per MD using Vital AF at 80ml/hr goal; to provide 1920ml fluid, 1557ml free water, 2304kcals, and 144g protein. 2. additional water flush 200ml Q 3. PALB Q /; daily wts 4. routine bowel care 5. monitor for TF tolerance 6. upon extubation; advance diet as medically indicated to heart healthy Addendum: 07/27/19 at [address] Amended: Links added. Addendum: 07/30/19 at [address] water flush 200ml Q4
[2019-07-27 17:01] LABS: PREALBUMIN 17.1 MG/DL (19-36)
--- NOTE | 2019-07-27 18:30 | NUR ---
Patient in room CICU 2014. I have received report from Samia RINCON and had the opportunity to ask questions and assume patient care.
--- NOTE | 2019-07-27 18:39 | NUR ---
Problems reprioritized. Patient report given, questions answered & plan of care reviewed with Papa RINCON.
[2019-07-27] MEDS ORDERED: ipratropium/albuterol 3ml nebule NEB SCH (19:00)
[2019-07-27] MEDS: VANCOmycin 1250MG/NS 250ml Bag 250 ML IV SCH (20:06)
[2019-07-27 22:00] LABS: HEMATOCRIT 36.2 % (42.0-52.0); HEMOGLOBIN 12.4 g/dl (14.0-17.9); MEAN CORPUSCULAR HEMOGLOBIN 32.4 PG (27.0-31.0); MEAN CORPUSCULAR HGB CONC 34.2 g/dL (33.0-36.5); MEAN CORPUSCULAR VOLUME 94.7 FL (78-98); MEAN PLATELET VOLUME 7.4 FL (7.4-10.4); PLATELET COUNT 266 X10'3 (140-440); RED BLOOD COUNT 3.82 X10'6 (4.70-6.10); RED CELL DISTRIBUTION WIDTH 15.7 % (11.5-14.5); WHITE BLOOD COUNT 5.5 X10'3 (4.5-11.0)
[2019-07-28] VITALS (24 sets, daily range): BP systolic 89–137; BP diastolic 49–80
[2019-07-28] MEDS: mineral oil/petrolatum ophthal oint EACHEYE SCH ×5 (02:24→19:28)
[2019-07-28] MEDS: methylPREDNISolone sod succ/PF 40mg inj. IV SCH ×4 (02:28→19:28)
[2019-07-28] MEDS: ipratropium/albuterol 3ml nebule NEB SCH ×6 (02:59→23:00)
[2019-07-28 03:10] LABS: ABG BASE EXCESS 2.7 mmol/L (-2.0-3.0); ABG OXYGEN SATURATION 98.6 % (95-98); ABG PCO2 (T) 34.8 mmHg (35.0-45.0); ABG PH (T) 7.489 (7.350-7.450); ALLEN'S TEST POSITIVE; FCOHb 0.3 % (0.5-1.5); FMetHb 0.1 % (0.3-1.12); FO2Hb 98.2 % (94-100); PATIENT TEMPERATURE 36.3; PEEP 5 cm H2O; RESPIRATORY RATE 18 b/min; TIDAL VOLUME 500 mL
[2019-07-28] MEDS: normal saline 1000ml 1,000 ML IV SCH ×2 (03:44→16:15)
[2019-07-28] MEDS: VANCOmycin 1250MG/NS 250ml Bag 250 ML IV SCH ×3 (03:44→19:27)
[2019-07-28 04:25] LABS: BASOPHILS % (AUTO) 0.2 % (0-1); EOSINOPHILS % (AUTO) 0 % (0-6); HEMATOCRIT 36.2 % (42.0-52.0); HEMOGLOBIN 12.3 g/dl (14.0-17.9); LYMPHOCYTES # (AUTO) 0.5 X10'3 (1.1-4.8); LYMPHOCYTES % (AUTO) 8.8 % (21-51); MEAN CORPUSCULAR HEMOGLOBIN 32.1 PG (27.0-31.0); MEAN CORPUSCULAR HGB CONC 33.9 g/dL (33.0-36.5); MEAN CORPUSCULAR VOLUME 94.6 FL (78-98); MEAN PLATELET VOLUME 7.9 FL (7.4-10.4); MONOCYTES # (AUTO) 0.4 X10'3 (0-0.9); MONOCYTES % (AUTO) 6.9 % (2-12); NEUTROPHILS # (AUTO) 4.8 X10'3 (1.8-7.7); NEUTROPHILS % (AUTO) 84.1 % (42-75); PLATELET COUNT 272 X10'3 (140-440); RED BLOOD COUNT 3.83 X10'6 (4.70-6.10); RED CELL DISTRIBUTION WIDTH 15.3 % (11.5-14.5); WHITE BLOOD COUNT 5.8 X10'3 (4.5-11.0)
[2019-07-28 04:38] LABS: ALANINE AMINOTRANSFERASE 16 U/L (12-78); ALBUMIN 2.7 G/DL (3.4-5.0); ALBUMIN/GLOBULIN RATIO 1.1 (1.1-1.5); ALKALINE PHOSPHATASE 53 IU/L (46-116); ANION GAP 5 (8-16); ASPARTATE AMINO TRANSFERASE 9 U/L (10-37); BILIRUBIN,TOTAL 0.7 MG/DL (0.1-1.0); BLOOD UREA NITROGEN 15 MG/DL (7-18); BUN/CREATININE RATIO 29.4 (5.4-32.0); CALCIUM 7.7 MG/DL (8.5-10.1); CHLORIDE 107 MMOL/L (99-107); CREATININE 0.51 MG/DL (0.60-1.10); GLUCOSE 191 MG/DL (70-104); MAGNESIUM 1.6 MG/DL (1.5-2.4); PHOSPHORUS 2.4 MG/DL (2.3-4.5); POTASSIUM 3.6 MMOL/L (3.5-5.1); SODIUM 143 MMOL/L (135-145); TOTAL CARBON DIOXIDE 30.9 MMOL/L (24-32); TOTAL PROTEIN 5.2 G/DL (6.4-8.2); eGFR > 90 ML/MIN
--- NOTE | 2019-07-28 06:15 | NUR ---
Problems reprioritized. Patient report given, questions answered & plan of care reviewed with .
[2019-07-28] MEDS: pantoprazole 40 MG vial IV SCH (07:40)
[2019-07-28] MEDS: levoFLOXACIN-Levaquin 500mg/D5 100 ML IV SCH (07:47)
[2019-07-28] MEDS: enoxaparin 40mg/0.4ml syringe SUBCUT SCH (07:50)
[2019-07-28] MEDS: K, MAG and/or Phos replacement - Verify level? MC SCH (08:00)
[2019-07-28] MEDS: metroNIDAZOLE-Flagyl 500mg/NS 100 ML IV SCH ×2 (09:07→19:28)
[2019-07-28] MEDS ORDERED: TOPI25TA49 PO (10:00)
[2019-07-28] MEDS ORDERED: FLU VACC QS2019-20 36MOS UP/PF 60 MCG/0.5 ML SYRINGE IMVAC ONE (10:00)
[2019-07-28] MEDS ORDERED: dextrose 50%-water 50ml dispensing syringe IV PRN ×2 (10:20)
[2019-07-28] MEDS ORDERED: dextrose ORAL solution 15 GM/59 ML bottle PO PRN ×2 (10:20)
[2019-07-28] MEDS ORDERED: glucagon, human recombinant 1mg kit SUBCUT PRN (10:20)
[2019-07-28] MEDS ORDERED: MESSAGE TO PHARMACY PO ONE (10:20)
[2019-07-28] MEDS ORDERED: SUMAtriptan 25 MG tablet PO PRN (11:10)
[2019-07-28] MEDS ORDERED: albuterol 2.5 MG/3 ML nebule NEB PRN (11:10)
[2019-07-28 11:14] LABS: HEMOGLOBIN A1C 5.9 % (4.5-6.2)
--- NOTE | 2019-07-28 12:06 | NUR ---
patient tolerated CPAP 5/10 well for the past 3.5 hours, off sedation. RR increased into the 40s with low tidal volumes between 75-150 and sats dropping. MD notified. orders to restart sedation and place the patient back on a rate
[2019-07-28 12:18] LABS: MAGNESIUM 1.8 MG/DL (1.5-2.4); POTASSIUM 4.1 MMOL/L (3.5-5.1)
[2019-07-28] MEDS: FENTANYL-0.9 % NACL/PF 100 ML IV PRN (12:41)
[2019-07-28] MEDS: NORepinephrine 8mg/ 250ml NS 250 ML IV SCH (13:28)
[2019-07-28] MEDS ORDERED: magnesium 4gm in 100ml NS 100 ML IV PRN (14:10)
[2019-07-28] MEDS: potassium Cl 20mEq/100mL bag 100 ML IV PRN ×2 (14:23→15:38)
[2019-07-28] MEDS: insulin regular, human U-100 3ml vial - multi-dose SQ SCH ×2 (14:37→20:31)
[2019-07-28] MEDS: midazolam 100mg in NS 100ml 100 ML IV PRN ×2 (14:56→23:00)
[2019-07-28] MEDS ORDERED: midazolam 2 mg/2 ml injection IV PRN (15:05)
[2019-07-28] MEDS ORDERED: fentaNYL/PF 50MCG/1 ML 2ML syringe IV PRN (15:05)
[2019-07-28] MEDS ORDERED: WATER IV PRN (17:39)
[2019-07-28] MEDS ORDERED: MAGNESIUM IV PRN (17:39)
[2019-07-28] MEDS ORDERED: VANCOMYCIN LEVEL IV ONE (18:30)
[2019-07-28] MEDS: lactobacillus rhamnosus 10,000 MMU CELLS/CAPSULE PO SCH (19:28)
[2019-07-28] MEDS: topiramate 25mg tablet PO SCH (20:00)
[2019-07-28] MEDS: insulin glargine (Lantus) pen - multi-dose SQ SCH (20:29)
[2019-07-29] VITALS (24 sets, daily range): BP systolic 15–122; BP diastolic 52–77
[2019-07-29] MEDS: mineral oil/petrolatum ophthal oint EACHEYE SCH ×8 (00:31→20:42)
[2019-07-29] MEDS: NORepinephrine 8mg/ 250ml NS 250 ML IV SCH (01:24)
[2019-07-29] MEDS: methylPREDNISolone sod succ/PF 40mg inj. IV SCH ×4 (01:25→20:28)
[2019-07-29] MEDS: insulin regular, human U-100 3ml vial - multi-dose SQ SCH ×4 (02:15→21:07)
[2019-07-29] MEDS: VANCOmycin 1250MG/NS 250ml Bag 250 ML IV SCH ×3 (02:16→18:50)
[2019-07-29 02:32] LABS: BASOPHILS % (AUTO) 0.2 % (0-1); EOSINOPHILS % (AUTO) 0 % (0-6); HEMATOCRIT 34.8 % (42.0-52.0); LYMPHOCYTES # (AUTO) 0.3 X10'3 (1.1-4.8); LYMPHOCYTES % (AUTO) 3.2 % (21-51); MEAN CORPUSCULAR HEMOGLOBIN 32.2 PG (27.0-31.0); MEAN CORPUSCULAR HGB CONC 34.4 g/dL (33.0-36.5); MEAN CORPUSCULAR VOLUME 93.7 FL (78-98); MEAN PLATELET VOLUME 7.8 FL (7.4-10.4); MONOCYTES # (AUTO) 0.4 X10'3 (0-0.9); MONOCYTES % (AUTO) 5.4 % (2-12); NEUTROPHILS # (AUTO) 7.2 X10'3 (1.8-7.7); NEUTROPHILS % (AUTO) 91.2 % (42-75); PLATELET COUNT 250 X10'3 (140-440); RED BLOOD COUNT 3.72 X10'6 (4.70-6.10); RED CELL DISTRIBUTION WIDTH 15.9 % (11.5-14.5); WHITE BLOOD COUNT 7.9 X10'3 (4.5-11.0)
[2019-07-29] MEDS: normal saline 1000ml 1,000 ML IV SCH ×2 (02:32→10:29)
[2019-07-29 02:47] LABS: ALANINE AMINOTRANSFERASE 17 U/L (12-78); ALBUMIN 2.6 G/DL (3.4-5.0); ALBUMIN/GLOBULIN RATIO 1.1 (1.1-1.5); ALKALINE PHOSPHATASE 50 IU/L (46-116); ANION GAP 4 (8-16); ASPARTATE AMINO TRANSFERASE 10 U/L (10-37); BILIRUBIN,TOTAL 0.5 MG/DL (0.1-1.0); BLOOD UREA NITROGEN 14 MG/DL (7-18); BUN/CREATININE RATIO 28.6 (5.4-32.0); CALCIUM 7.3 MG/DL (8.5-10.1); CHLORIDE 109 MMOL/L (99-107); CREATININE 0.49 MG/DL (0.60-1.10); GLUCOSE 175 MG/DL (70-104); MAGNESIUM 2.1 MG/DL (1.5-2.4); PHOSPHORUS 2.4 MG/DL (2.3-4.5); POTASSIUM 4.1 MMOL/L (3.5-5.1); SODIUM 143 MMOL/L (135-145); eGFR > 90 ML/MIN
[2019-07-29] MEDS: ipratropium/albuterol 3ml nebule NEB SCH ×6 (03:10→23:22)
[2019-07-29 04:20] LABS: ABG HCO3 29.5 mmol/L (22.0-26.0); ABG OXYGEN SATURATION 96.2 % (95-98); ABG PCO2 (T) 42.1 mmHg (35.0-45.0); ABG PH (T) 7.461 (7.350-7.450); ABG PO2 (T) 77.3 mmHg (83-108); ALLEN'S TEST POSITIVE; FCOHb 0.2 % (0.5-1.5); FMetHb 0.2 % (0.3-1.12); FO2Hb 95.8 % (94-100); PATIENT TEMPERATURE 36.4; PEEP 5 cm H2O; RESPIRATORY RATE 14 b/min; TIDAL VOLUME 500 mL; TOTAL HEMOGLOBIN 12.6 G/dl (14.0-17.9)
--- NOTE | 2019-07-29 06:34 | NUR ---
Problems reprioritized. Patient report given, questions answered & plan of care reviewed with Moise RINCON.
[2019-07-29] MEDS: metroNIDAZOLE-Flagyl 500mg/NS 100 ML IV SCH ×2 (07:26→20:27)
[2019-07-29] MEDS: K, MAG and/or Phos replacement - Verify level? MC SCH (08:00)
[2019-07-29] MEDS: lactobacillus rhamnosus 10,000 MMU CELLS/CAPSULE PO SCH ×2 (08:24→20:29)
[2019-07-29] MEDS: topiramate 25mg tablet PO SCH ×2 (08:24→20:29)
[2019-07-29] MEDS: potassium Cl 20 mEq SR tablet PO PRN ×2 (08:28→16:00)
[2019-07-29] MEDS: levoFLOXACIN-Levaquin 500mg/D5 100 ML IV SCH (08:29)
[2019-07-29] MEDS: pantoprazole 40 MG vial IV SCH (09:53)
[2019-07-29] MEDS: enoxaparin 40mg/0.4ml syringe SUBCUT SCH (09:55)
[2019-07-29] MEDS: furosemide 40mg/4ml inj IV SCH ×2 (09:58→20:29)
[2019-07-29] MEDS: magnesium 2GM in 50ml NS 50 ML IV PRN (12:16)
--- NOTE | 2019-07-29 13:03 | NUR ---
patient not ready to extubate per MD. RSBI up above 170 on 10 of pressure support, and drops to under 50 with 20 of pressure support. Ordered to place him back on a rate for today and continue weaning trials daily
[2019-07-29] MEDS: lactulose 20gm/30ml cup PO PRN (14:02)
[2019-07-29] MEDS: FENTANYL-0.9 % NACL/PF 100 ML IV PRN (14:26)
[2019-07-29] MEDS: midazolam 100mg in NS 100ml 100 ML IV PRN (18:10)
--- NOTE | 2019-07-29 18:30 | NUR ---
Patient in room CICU 2014. I have received report from SERGEY Phipps and had the opportunity to ask questions and assume patient care.
[2019-07-29] MEDS: insulin glargine (Lantus) pen - multi-dose SQ SCH (21:08)
[2019-07-30] VITALS (24 sets, daily range): BP systolic 91–132; BP diastolic 57–78
[2019-07-30] MEDS: potassium Cl 20mEq/100mL bag 100 ML IV PRN ×3 (00:14→22:49)
[2019-07-30] MEDS: NORepinephrine 8mg/ 250ml NS 250 ML IV SCH (00:36)
[2019-07-30] MEDS: mineral oil/petrolatum ophthal oint EACHEYE SCH ×9 (00:38→19:44)
[2019-07-30] MEDS: midazolam 100mg in NS 100ml 100 ML IV PRN ×3 (01:21→17:54)
[2019-07-30] MEDS: methylPREDNISolone sod succ/PF 40mg inj. IV SCH ×4 (02:01→19:45)
[2019-07-30] MEDS: ipratropium/albuterol 3ml nebule NEB SCH ×6 (02:02→23:07)
[2019-07-30] MEDS: insulin regular, human U-100 3ml vial - multi-dose SQ SCH ×3 (02:12→20:12)
[2019-07-30 02:16] LABS: ABG BASE EXCESS 4.1 mmol/L (-2.0-3.0); ABG HCO3 27.8 mmol/L (22.0-26.0); ABG OXYGEN SATURATION 97.7 % (95-98); ABG PO2 (T) 90.7 mmHg (83-108); ALLEN'S TEST POSITIVE; FCOHb 0.3 % (0.5-1.5); FMetHb 0.1 % (0.3-1.12); FO2Hb 97.3 % (94-100); PATIENT TEMPERATURE 36.2; PEEP 5 cm H2O; RESPIRATORY RATE 14 b/min; TIDAL VOLUME 500 mL; TOTAL HEMOGLOBIN 13.3 G/dl (14.0-17.9)
[2019-07-30] MEDS: lactulose 20gm/30ml cup PO PRN (02:21)
[2019-07-30] MEDS: VANCOmycin 1250MG/NS 250ml Bag 250 ML IV SCH ×3 (03:31→19:38)
[2019-07-30 04:40] LABS: ALANINE AMINOTRANSFERASE 16 U/L (12-78); ALBUMIN 2.7 G/DL (3.4-5.0); ALKALINE PHOSPHATASE 48 IU/L (46-116); ANION GAP 3 (8-16); ASPARTATE AMINO TRANSFERASE 12 U/L (10-37); BILIRUBIN,TOTAL 0.4 MG/DL (0.1-1.0); BLOOD UREA NITROGEN 20 MG/DL (7-18); BUN/CREATININE RATIO 34.5 (5.4-32.0); CALCIUM 7.5 MG/DL (8.5-10.1); CHLORIDE 106 MMOL/L (99-107); CREATININE 0.58 MG/DL (0.60-1.10); GLUCOSE 207 MG/DL (70-104); MAGNESIUM 2.1 MG/DL (1.5-2.4); POTASSIUM 4.6 MMOL/L (3.5-5.1); SODIUM 141 MMOL/L (135-145); TOTAL CARBON DIOXIDE 32.1 MMOL/L (24-32); TOTAL PROTEIN 5.4 G/DL (6.4-8.2); eGFR > 90 ML/MIN
[2019-07-30 05:08] LABS: BASOPHILS % (AUTO) 0.1 % (0-1); EOSINOPHILS % (AUTO) 0 % (0-6); HEMATOCRIT 37.7 % (42.0-52.0); HEMOGLOBIN 12.4 g/dl (14.0-17.9); LYMPHOCYTES # (AUTO) 0.2 X10'3 (1.1-4.8); MEAN CORPUSCULAR HEMOGLOBIN 31.5 PG (27.0-31.0); MEAN CORPUSCULAR HGB CONC 32.9 g/dL (33.0-36.5); MEAN CORPUSCULAR VOLUME 95.7 FL (78-98); MEAN PLATELET VOLUME 8.2 FL (7.4-10.4); MONOCYTES # (AUTO) 0.4 X10'3 (0-0.9); MONOCYTES % (AUTO) 4.6 % (2-12); NEUTROPHILS # (AUTO) 7.3 X10'3 (1.8-7.7); NEUTROPHILS % (AUTO) 93.3 % (42-75); PLATELET COUNT 250 X10'3 (140-440); RED BLOOD COUNT 3.95 X10'6 (4.70-6.10); RED CELL DISTRIBUTION WIDTH 16.4 % (11.5-14.5); WHITE BLOOD COUNT 7.8 X10'3 (4.5-11.0)
[2019-07-30] MEDS: magnesium 2GM in 50ml NS 50 ML IV PRN (05:19)
--- NOTE | 2019-07-30 06:29 | NUR ---
Problems reprioritized. Patient report given, questions answered & plan of care reviewed with SERGEY Mcintyre.
--- NOTE | 2019-07-30 06:30 | NUR ---
Patient in room CICU 2014. I have received report from SERGEY Mcgrath and had the opportunity to ask questions and assume patient care.
[2019-07-30] MEDS: pantoprazole 40 MG vial IV SCH (07:37)
[2019-07-30] MEDS: lactobacillus rhamnosus 10,000 MMU CELLS/CAPSULE PO SCH ×2 (07:38→19:46)
[2019-07-30] MEDS: furosemide 40mg/4ml inj IV SCH ×2 (07:38→19:45)
[2019-07-30] MEDS: metroNIDAZOLE-Flagyl 500mg/NS 100 ML IV SCH ×2 (07:38→19:45)
[2019-07-30] MEDS: enoxaparin 40mg/0.4ml syringe SUBCUT SCH (07:38)
[2019-07-30] MEDS: topiramate 25mg tablet PO SCH ×2 (07:46→19:46)
[2019-07-30] MEDS: levoFLOXACIN-Levaquin 500mg/D5 100 ML IV SCH (07:47)
[2019-07-30] MEDS: K, MAG and/or Phos replacement - Verify level? MC SCH (07:48)
[2019-07-30] MEDS: FENTANYL-0.9 % NACL/PF 100 ML IV PRN (09:49)
--- NOTE | 2019-07-30 12:19 | NUR ---
Reassessment: Pt tolerating TF at goal meeting needs. No BM yet receiving lactulose. New bed scaled wt 68kg down from 73kg w/ positive fluid balance; likely error. Will continue to monitor. Rec: 1. TF per MD using Vital AF at 80ml/hr goal; to provide 1920ml fluid, 1557ml free water, 2304kcals, and 144g protein. 2. additional water flush 200ml Q4 3. PALB Q /; daily wts 4. routine bowel care 5. monitor for TF tolerance 6. upon extubation; advance diet as medically indicated to heart healthy Addendum: 07/30/19 at [address] Amended: Links added.
[2019-07-30 15:12] LABS: MAGNESIUM 2.1 MG/DL (1.5-2.4); POTASSIUM 4.1 MMOL/L (3.5-5.1)
--- NOTE | 2019-07-30 18:30 | NUR ---
Patient in room CICU 2014. I have received report from SERGEY Siu and had the opportunity to ask questions and assume patient care.
[2019-07-30] MEDS: insulin glargine (Lantus) pen - multi-dose SQ SCH (20:13)
[2019-07-30 22:23] LABS: ALANINE AMINOTRANSFERASE 25 U/L (12-78); ALBUMIN 2.8 G/DL (3.4-5.0); ALKALINE PHOSPHATASE 49 IU/L (46-116); ANION GAP 5 (8-16); ASPARTATE AMINO TRANSFERASE 13 U/L (10-37); BILIRUBIN,TOTAL 0.4 MG/DL (0.1-1.0); BLOOD UREA NITROGEN 24 MG/DL (7-18); BUN/CREATININE RATIO 36.4 (5.4-32.0); CALCIUM 7.6 MG/DL (8.5-10.1); CHLORIDE 105 MMOL/L (99-107); CREATININE 0.66 MG/DL (0.60-1.10); GLUCOSE 205 MG/DL (70-104); MAGNESIUM 1.9 MG/DL (1.5-2.4); POTASSIUM 3.8 MMOL/L (3.5-5.1); SODIUM 143 MMOL/L (135-145); TOTAL CARBON DIOXIDE 33.3 MMOL/L (24-32); TOTAL PROTEIN 5.6 G/DL (6.4-8.2); eGFR > 90 ML/MIN
[2019-07-31] VITALS (24 sets, daily range): BP systolic 85–141; BP diastolic 48–83
[2019-07-31] MEDS: potassium Cl 20mEq/100mL bag 100 ML IV PRN ×4 (00:09→15:47)
[2019-07-31] MEDS: NORepinephrine 8mg/ 250ml NS 250 ML IV SCH ×2 (00:51→23:43)
[2019-07-31] MEDS: mineral oil/petrolatum ophthal oint EACHEYE SCH ×6 (02:00→21:10)
[2019-07-31] MEDS: methylPREDNISolone sod succ/PF 40mg inj. IV SCH ×4 (02:14→21:13)
[2019-07-31] MEDS: insulin regular, human U-100 3ml vial - multi-dose SQ SCH ×4 (02:33→21:26)
[2019-07-31] MEDS: VANCOmycin 1250MG/NS 250ml Bag 250 ML IV SCH ×3 (02:57→21:09)
[2019-07-31] MEDS: ipratropium/albuterol 3ml nebule NEB SCH ×6 (03:03→23:30)
[2019-07-31 03:21] LABS: ABG BASE EXCESS 5.4 mmol/L (-2.0-3.0); ABG HCO3 29.6 mmol/L (22.0-26.0); ABG OXYGEN SATURATION 97.2 % (95-98); ABG PH (T) 7.475 (7.350-7.450); ABG PO2 (T) 85.3 mmHg (83-108); ALLEN'S TEST POSITIVE; FCOHb 0.3 % (0.5-1.5); FMetHb 0.1 % (0.3-1.12); FO2Hb 96.8 % (94-100); PATIENT TEMPERATURE 36.6; PEEP 5 cm H2O; RESPIRATORY RATE 14 b/min; TIDAL VOLUME 500 mL; TOTAL HEMOGLOBIN 13.8 G/dl (14.0-17.9)
[2019-07-31] MEDS: FENTANYL-0.9 % NACL/PF 100 ML IV PRN ×2 (04:52→23:44)
[2019-07-31 05:19] LABS: BASOPHILS % (AUTO) 0.1 % (0-1); EOSINOPHILS % (AUTO) 0 % (0-6); HEMATOCRIT 39.1 % (42.0-52.0); HEMOGLOBIN 12.9 g/dl (14.0-17.9); LYMPHOCYTES # (AUTO) 0.2 X10'3 (1.1-4.8); LYMPHOCYTES % (AUTO) 2.4 % (21-51); MEAN CORPUSCULAR HEMOGLOBIN 31.2 PG (27.0-31.0); MEAN CORPUSCULAR VOLUME 94.6 FL (78-98); MONOCYTES # (AUTO) 0.4 X10'3 (0-0.9); MONOCYTES % (AUTO) 4.4 % (2-12); NEUTROPHILS % (AUTO) 93.1 % (42-75); PLATELET COUNT 256 X10'3 (140-440); RED BLOOD COUNT 4.13 X10'6 (4.70-6.10); RED CELL DISTRIBUTION WIDTH 16.1 % (11.5-14.5); WHITE BLOOD COUNT 8.6 X10'3 (4.5-11.0)
[2019-07-31 05:45] LABS: ALANINE AMINOTRANSFERASE 14 U/L (12-78); ALBUMIN 2.7 G/DL (3.4-5.0); ALKALINE PHOSPHATASE 46 IU/L (46-116); ANION GAP 3 (8-16); ASPARTATE AMINO TRANSFERASE 10 U/L (10-37); BILIRUBIN,TOTAL 0.5 MG/DL (0.1-1.0); BLOOD UREA NITROGEN 25 MG/DL (7-18); BUN/CREATININE RATIO 44.6 (5.4-32.0); CALCIUM 7.9 MG/DL (8.5-10.1); CHLORIDE 107 MMOL/L (99-107); CREATININE 0.56 MG/DL (0.60-1.10); GLUCOSE 119 MG/DL (70-104); MAGNESIUM 2.7 MG/DL (1.5-2.4); PREALBUMIN 33.8 MG/DL (19-36); SODIUM 142 MMOL/L (135-145); TOTAL CARBON DIOXIDE 32.3 MMOL/L (24-32); TOTAL PROTEIN 5.4 G/DL (6.4-8.2); eGFR > 90 ML/MIN
[2019-07-31] MEDS: midazolam 100mg in NS 100ml 100 ML IV PRN ×3 (06:00→23:43)
--- NOTE | 2019-07-31 06:22 | NUR ---
Problems reprioritized. Patient report given, questions answered & plan of care reviewed with SERGEY Siu.
[2019-07-31] MEDS: levoFLOXACIN-Levaquin 500mg/D5 100 ML IV SCH (08:12)
[2019-07-31] MEDS: lactulose 20gm/30ml cup PO PRN (08:13)
[2019-07-31] MEDS: pantoprazole 40 MG vial IV SCH (08:13)
[2019-07-31] MEDS: furosemide 40mg/4ml inj IV SCH ×2 (08:13→21:13)
[2019-07-31] MEDS: lactobacillus rhamnosus 10,000 MMU CELLS/CAPSULE PO SCH (08:13)
[2019-07-31] MEDS: enoxaparin 40mg/0.4ml syringe SUBCUT SCH (08:15)
[2019-07-31] MEDS: topiramate 25mg tablet PO SCH (08:15)
[2019-07-31] MEDS: K, MAG and/or Phos replacement - Verify level? MC SCH (08:23)
[2019-07-31] MEDS: metroNIDAZOLE-Flagyl 500mg/NS 100 ML IV SCH ×2 (09:43→21:12)
[2019-07-31 14:32] LABS: POTASSIUM 4.4 MMOL/L (3.5-5.1)
[2019-07-31] MEDS: methylnaltrexone br 12mg/0.6ml inj***SubQ only SQ SCH (14:32)
[2019-07-31] MEDS ORDERED: acetaminophen 325mg/10.15ml oral unit dose solution OGT PRN ×2 (14:39→14:40)
[2019-07-31] MEDS ORDERED: SUMAtriptan 25 MG tablet OGT PRN (14:40)
[2019-07-31] MEDS ORDERED: dextrose ORAL solution 15 GM/59 ML bottle OGT PRN ×2 (14:40)
[2019-07-31] MEDS ORDERED: POTASSIUM BICARB 20meq eff tab 20 MEQ TABLET.EFF OGT PRN (14:41)
[2019-07-31] MEDS ORDERED: lactulose 20gm/30ml cup OGT PRN (14:41)
[2019-07-31 15:51] LABS: MAGNESIUM 2.3 MG/DL (1.5-2.4)
--- NOTE | 2019-07-31 18:20 | NUR ---
Problems reprioritized. Patient report given, questions answered & plan of care reviewed with jacky Jordan.
--- NOTE | 2019-07-31 18:30 | NUR ---
Patient in room CICU 2014. I have received report from Francisco Javier RINCON and had the opportunity to ask questions and assume patient care.
[2019-07-31] MEDS: lactobacillus rhamnosus 10,000 MMU CELLS/CAPSULE OGT SCH (21:14)
[2019-07-31] MEDS: normal saline 1000ml 1,000 ML IV SCH (21:15)
[2019-07-31] MEDS: topiramate 25mg tablet OGT SCH (21:15)
[2019-07-31] MEDS: insulin glargine (Lantus) pen - multi-dose SQ SCH (21:26)
[2019-08-01] VITALS (25 sets, daily range): BP systolic 95–152; BP diastolic 52–98
[2019-08-01] MEDS: mineral oil/petrolatum ophthal oint EACHEYE SCH ×4 (02:00→20:00)
[2019-08-01] MEDS: methylPREDNISolone sod succ/PF 40mg inj. IV SCH ×4 (02:00→20:31)
[2019-08-01] MEDS: insulin regular, human U-100 3ml vial - multi-dose SQ SCH ×2 (02:15→08:25)
[2019-08-01] MEDS: ipratropium/albuterol 3ml nebule NEB SCH ×6 (03:00→23:19)
[2019-08-01] MEDS: VANCOmycin 1250MG/NS 250ml Bag 250 ML IV SCH ×3 (03:44→19:12)
[2019-08-01 04:35] LABS: ABG BASE EXCESS 4.9 mmol/L (-2.0-3.0); ABG OXYGEN SATURATION 95.2 % (95-98); ABG PCO2 (T) 51.6 mmHg (35.0-45.0); ABG PH (T) 7.396 (7.350-7.450); ABG PO2 (T) 76.5 mmHg (83-108); ALLEN'S TEST POSITIVE; FCOHb 0.4 % (0.5-1.5); FMetHb 0.2 % (0.3-1.12); FO2Hb 94.6 % (94-100); PATIENT TEMPERATURE 36.9; PEEP 5 cm H2O; RESPIRATORY RATE 14 b/min; TIDAL VOLUME 500 mL; TOTAL HEMOGLOBIN 13.6 G/dl (14.0-17.9)
[2019-08-01 05:18] LABS: BASOPHILS % (AUTO) 0.2 % (0-1); EOSINOPHILS % (AUTO) 0 % (0-6); LYMPHOCYTES # (AUTO) 0.2 X10'3 (1.1-4.8); LYMPHOCYTES % (AUTO) 2.1 % (21-51); MEAN CORPUSCULAR HEMOGLOBIN 31.5 PG (27.0-31.0); MEAN CORPUSCULAR HGB CONC 33.4 g/dL (33.0-36.5); MEAN CORPUSCULAR VOLUME 94.3 FL (78-98); MEAN PLATELET VOLUME 8.2 FL (7.4-10.4); MONOCYTES # (AUTO) 0.4 X10'3 (0-0.9); NEUTROPHILS # (AUTO) 8.2 X10'3 (1.8-7.7); NEUTROPHILS % (AUTO) 92.7 % (42-75); PLATELET COUNT 281 X10'3 (140-440); RED BLOOD COUNT 4.13 X10'6 (4.70-6.10); RED CELL DISTRIBUTION WIDTH 15.7 % (11.5-14.5); WHITE BLOOD COUNT 8.9 X10'3 (4.5-11.0)
[2019-08-01 05:40] LABS: ALANINE AMINOTRANSFERASE 19 U/L (12-78); ALBUMIN 2.6 G/DL (3.4-5.0); ALKALINE PHOSPHATASE 42 IU/L (46-116); ANION GAP 4 (8-16); ASPARTATE AMINO TRANSFERASE 9 U/L (10-37); BILIRUBIN,TOTAL 0.6 MG/DL (0.1-1.0); BLOOD UREA NITROGEN 34 MG/DL (7-18); BUN/CREATININE RATIO 59.6 (5.4-32.0); CALCIUM 7.8 MG/DL (8.5-10.1); CHLORIDE 106 MMOL/L (99-107); CREATININE 0.57 MG/DL (0.60-1.10); GLUCOSE 108 MG/DL (70-104); MAGNESIUM 2.1 MG/DL (1.5-2.4); PHOSPHORUS 4.6 MG/DL (2.3-4.5); POTASSIUM 4.2 MMOL/L (3.5-5.1); SODIUM 143 MMOL/L (135-145); TOTAL CARBON DIOXIDE 33.3 MMOL/L (24-32); TOTAL PROTEIN 5.3 G/DL (6.4-8.2); eGFR > 90 ML/MIN
--- NOTE | 2019-08-01 06:36 | NUR ---
Problems reprioritized. Patient report given, questions answered & plan of care reviewed with Joann RINCON.
--- NOTE | 2019-08-01 06:36 | NUR ---
Patient in room [facility] 2015. I have received report from Lyubov RINCON and had the opportunity to ask questions and assume patient care. Addendum: 08/01/19 at 0636 by Joann Rosen RN Amended: Links added.
[2019-08-01] MEDS: K, MAG and/or Phos replacement - Verify level? MC SCH (08:00)
[2019-08-01] MEDS: lactobacillus rhamnosus 10,000 MMU CELLS/CAPSULE OGT SCH ×2 (08:27→20:31)
[2019-08-01] MEDS: metroNIDAZOLE-Flagyl 500mg/NS 100 ML IV SCH ×2 (08:28→20:31)
[2019-08-01] MEDS: levoFLOXACIN-Levaquin 500mg/D5 100 ML IV SCH (08:28)
[2019-08-01] MEDS: pantoprazole 40 MG vial IV SCH (08:30)
[2019-08-01] MEDS: furosemide 40mg/4ml inj IV SCH ×2 (08:34→20:31)
[2019-08-01] MEDS: enoxaparin 40mg/0.4ml syringe SUBCUT SCH (08:39)
[2019-08-01] MEDS: topiramate 25mg tablet OGT SCH ×2 (08:40→20:43)
--- NOTE | 2019-08-01 10:16 | NUR ---
Dr. Daniels in to see pt. Pt. passed weaning parameters earlier this shift. Order received to extubate pt. RT Marianna notified.
--- NOTE | 2019-08-01 14:28 | NUR ---
Pt. doing well since extubation. Pt. is a mouth-breather and needs to be reminded to take deep breathes through his nose occasionally. Tolerating ice chips.
--- NOTE | 2019-08-01 15:23 | NUR ---
Pt. restless, taking off pulse ox probes, sitting up at end of bed etc. Dr. Daniels notified. Dr. Daniels to order something for anxiety.
--- NOTE | 2019-08-01 16:15 | NUR ---
Patient asked that he hold onto cell phone and $900 in [place] (2 - $50 bills, 5 - $20 bills, 7- $100 bills). Pt. educated and advised regarding safe keeping in hospital safe and refused to have the money taken from him. Pt. states he understands if belongings and money are lost, they are his responsibility
--- NOTE | 2019-08-01 18:29 | NUR ---
Problems reprioritized. Patient report given, questions answered & plan of care reviewed with Andrew RINCON.
[2019-08-01] MEDS: morphine 2 MG/ML inj. syringe IV PRN (20:32)
[2019-08-01] MEDS: quetiapine 100mg tablet PO SCH (21:00)
[2019-08-01] MEDS: insulin glargine (Lantus) pen - multi-dose SQ SCH (21:00)
[2019-08-02] VITALS (21 sets, daily range): BP systolic 85–135; BP diastolic 53–78
[2019-08-02] MEDS: mineral oil/petrolatum ophthal oint EACHEYE SCH ×5 (02:00→20:38)
[2019-08-02] MEDS: ipratropium/albuterol 3ml nebule NEB SCH ×6 (03:23→23:31)
[2019-08-02] MEDS: methylPREDNISolone sod succ/PF 40mg inj. IV SCH ×4 (03:26→20:37)
[2019-08-02] MEDS: morphine 2 MG/ML inj. syringe IV PRN ×4 (03:26→21:22)
[2019-08-02] MEDS: VANCOmycin 1250MG/NS 250ml Bag 250 ML IV SCH ×3 (03:26→19:00)
--- NOTE | 2019-08-02 05:41 | NUR ---
Patient has 900 dollars in [place] on hand. Money was taken down to ER to be locked away.
[2019-08-02 05:47] LABS: BASOPHILS % (AUTO) 0.1 % (0-1); EOSINOPHILS % (AUTO) 0 % (0-6); HEMATOCRIT 40.6 % (42.0-52.0); HEMOGLOBIN 13.6 g/dl (14.0-17.9); LYMPHOCYTES # (AUTO) 0.2 X10'3 (1.1-4.8); LYMPHOCYTES % (AUTO) 2.7 % (21-51); MEAN CORPUSCULAR HEMOGLOBIN 31.5 PG (27.0-31.0); MEAN CORPUSCULAR HGB CONC 33.5 g/dL (33.0-36.5); MEAN CORPUSCULAR VOLUME 94.1 FL (78-98); MEAN PLATELET VOLUME 7.8 FL (7.4-10.4); MONOCYTES # (AUTO) 0.8 X10'3 (0-0.9); MONOCYTES % (AUTO) 8.5 % (2-12); NEUTROPHILS # (AUTO) 7.8 X10'3 (1.8-7.7); NEUTROPHILS % (AUTO) 88.7 % (42-75); PLATELET COUNT 293 X10'3 (140-440); RED BLOOD COUNT 4.32 X10'6 (4.70-6.10); RED CELL DISTRIBUTION WIDTH 16.1 % (11.5-14.5); WHITE BLOOD COUNT 8.9 X10'3 (4.5-11.0)
[2019-08-02 06:27] LABS: ALANINE AMINOTRANSFERASE 26 U/L (12-78); ALBUMIN 2.9 G/DL (3.4-5.0); ALBUMIN/GLOBULIN RATIO 1.1 (1.1-1.5); ALKALINE PHOSPHATASE 44 IU/L (46-116); ANION GAP 2 (8-16); ASPARTATE AMINO TRANSFERASE 12 U/L (10-37); BILIRUBIN,TOTAL 0.7 MG/DL (0.1-1.0); BLOOD UREA NITROGEN 35 MG/DL (7-18); BUN/CREATININE RATIO 61.4 (5.4-32.0); CALCIUM 8.2 MG/DL (8.5-10.1); CHLORIDE 104 MMOL/L (99-107); CREATININE 0.57 MG/DL (0.60-1.10); GLUCOSE 161 MG/DL (70-104); MAGNESIUM 2.1 MG/DL (1.5-2.4); PHOSPHORUS 3.8 MG/DL (2.3-4.5); POTASSIUM 3.8 MMOL/L (3.5-5.1); SODIUM 143 MMOL/L (135-145); TOTAL CARBON DIOXIDE 36.8 MMOL/L (24-32); TOTAL PROTEIN 5.6 G/DL (6.4-8.2); eGFR > 90 ML/MIN
--- NOTE | 2019-08-02 06:31 | NUR ---
Problems reprioritized. Patient report given, questions answered & plan of care reviewed with Kamran RINCON .
--- NOTE | 2019-08-02 06:32 | NUR ---
Patient in room CICU 2014. I have received report from Ramez RINCON and had the opportunity to ask questions and assume patient care.
[2019-08-02] MEDS: K, MAG and/or Phos replacement - Verify level? MC SCH (08:00)
[2019-08-02] MEDS: lactobacillus rhamnosus 10,000 MMU CELLS/CAPSULE OGT SCH ×2 (08:03→20:39)
[2019-08-02] MEDS: methylnaltrexone br 12mg/0.6ml inj***SubQ only SQ SCH (08:03)
[2019-08-02] MEDS: enoxaparin 40mg/0.4ml syringe SUBCUT SCH (08:04)
[2019-08-02] MEDS: furosemide 40mg/4ml inj IV SCH ×2 (08:04→20:38)
[2019-08-02] MEDS: pantoprazole 40 MG vial IV SCH (08:04)
[2019-08-02] MEDS: levoFLOXACIN-Levaquin 500mg/D5 100 ML IV SCH (08:05)
[2019-08-02] MEDS: topiramate 25mg tablet OGT SCH ×2 (08:35→20:38)
[2019-08-02] MEDS: normal saline 1000ml 1,000 ML IV SCH (10:39)
[2019-08-02] MEDS: metroNIDAZOLE-Flagyl 500mg/NS 100 ML IV SCH ×2 (10:40→20:38)
--- NOTE | 2019-08-02 10:59 | NUR ---
Reassessment: Pt has been extubated and advanced to mechanical soft diet. PO pending today first meals. No BM yet this admit 6 days; received PRN lactulose 07/30. ERLINDA d/w RN regarding routine bowel care per software project lead given documented constipation. Will continue to monitor for additional protein needs s/p extubation. Rec: 1. advance diet as medically indicated to heart healthy/mechanical soft 2. monitor for ONS needs pending PO 3. routine bowel care 4. wt per rx Addendum: 08/02/19 at [address] Amended: Links added.
[2019-08-02] MEDS ORDERED: glucagon, human recombinant 1mg kit SUBCUT PRN (14:10)
[2019-08-02] MEDS ORDERED: dextrose ORAL solution 15 GM/59 ML bottle PO PRN ×2 (14:10)
[2019-08-02] MEDS: insulin Lispro (HumaLOG) vial - multi-dose SQ SCH (15:23)
--- NOTE | 2019-08-02 17:33 | NUR ---
Patient arrived on PCU and was helped to bed. Patient oriented to room and VS obtained, skin check done, assessment done, and call light within reach. Patient is requesting that he be able to go to the bathroom, will check PT notes. Patient has skin issue on penis that he says is from sex and is going to have radiation done on. Will continue to monitor.Received report from Kamran RINCON
--- NOTE | 2019-08-02 18:05 | NUR ---
patient report called to Julieth RN, patient stable per MD orders, PCU tele box set up, SHAUN GARCIA, PIV started 20G LFA, belongings sent with patient, patient has money in the ER.
[2019-08-02] MEDS ORDERED: VANCOMYCIN LEVEL IV ONE (18:30)
--- NOTE | 2019-08-02 18:48 | NUR ---
Problems reprioritized. Patient report given, questions answered & plan of care reviewed with Ariande RINCON.
--- NOTE | 2019-08-02 18:49 | NUR ---
Patient had low blood glucose of 56 at dinner time, patient given PO glucose shot, blood sugar re-check was 97. Patient was ambulated to bathroom and became SOB and seemed very weak. Patient educated that he would need to use the bedside commode until cleared by PT.
[2019-08-02] MEDS: quetiapine 100mg tablet PO SCH (20:39)
--- NOTE | 2019-08-02 21:03 | NUR ---
May, PA & pharmacist notified of pt's critically high Vanco trough level : 23.05. Pharmacist ordered to hold the Vanco.
[2019-08-02] MEDS: insulin glargine (Lantus) pen - multi-dose SQ SCH (23:07)
[2019-08-03 02:00] VITALS: BP 115/84
[2019-08-03] MEDS: mineral oil/petrolatum ophthal oint EACHEYE SCH ×2 (02:00→08:00)
[2019-08-03] MEDS: methylPREDNISolone sod succ/PF 40mg inj. IV SCH ×4 (02:32→20:48)
[2019-08-03] MEDS: VANCOmycin 1250MG/NS 250ml Bag 250 ML IV SCH (02:57)
[2019-08-03] MEDS: ipratropium/albuterol 3ml nebule NEB SCH ×6 (04:05→23:32)
[2019-08-03 05:12] LABS: BASOPHILS % (AUTO) 0.1 % (0-1); EOSINOPHILS % (AUTO) 0 % (0-6); HEMATOCRIT 39.7 % (42.0-52.0); HEMOGLOBIN 13.7 g/dl (14.0-17.9); LYMPHOCYTES # (AUTO) 0.3 X10'3 (1.1-4.8); LYMPHOCYTES % (AUTO) 3.1 % (21-51); MEAN CORPUSCULAR HEMOGLOBIN 32.8 PG (27.0-31.0); MEAN CORPUSCULAR HGB CONC 34.6 g/dL (33.0-36.5); MEAN PLATELET VOLUME 7.6 FL (7.4-10.4); MONOCYTES # (AUTO) 0.7 X10'3 (0-0.9); MONOCYTES % (AUTO) 8.4 % (2-12); NEUTROPHILS # (AUTO) 7.7 X10'3 (1.8-7.7); NEUTROPHILS % (AUTO) 88.4 % (42-75); PLATELET COUNT 294 X10'3 (140-440); RED BLOOD COUNT 4.18 X10'6 (4.70-6.10); RED CELL DISTRIBUTION WIDTH 15.6 % (11.5-14.5); WHITE BLOOD COUNT 8.8 X10'3 (4.5-11.0)
[2019-08-03 05:27] LABS: ALANINE AMINOTRANSFERASE 35 U/L (12-78); ALBUMIN 2.9 G/DL (3.4-5.0); ALBUMIN/GLOBULIN RATIO 1.1 (1.1-1.5); ALKALINE PHOSPHATASE 39 IU/L (46-116); ANION GAP 3 (8-16); ASPARTATE AMINO TRANSFERASE 15 U/L (10-37); BILIRUBIN,TOTAL 0.9 MG/DL (0.1-1.0); BLOOD UREA NITROGEN 36 MG/DL (7-18); CALCIUM 8.3 MG/DL (8.5-10.1); CHLORIDE 104 MMOL/L (99-107); CREATININE 0.59 MG/DL (0.60-1.10); GLUCOSE 121 MG/DL (70-104); MAGNESIUM 2.1 MG/DL (1.5-2.4); PHOSPHORUS 3.6 MG/DL (2.3-4.5); POTASSIUM 3.5 MMOL/L (3.5-5.1); PREALBUMIN 43.1 MG/DL (19-36); SODIUM 144 MMOL/L (135-145); TOTAL CARBON DIOXIDE 37.2 MMOL/L (24-32); TOTAL PROTEIN 5.6 G/DL (6.4-8.2); eGFR > 90 ML/MIN
--- NOTE | 2019-08-03 06:18 | NUR ---
Problems reprioritized. Patient report given, questions answered & plan of care reviewed with SERGEY Ortez.
--- NOTE | 2019-08-03 06:52 | NUR ---
Patient in room PCU 3014. I have received report from SERGEY Sarabia and had the opportunity to ask questions and assume patient care. Patient awake in bed and in no acute distress.
[2019-08-03 07:00] VITALS: BP 121/63
[2019-08-03] MEDS: topiramate 25mg tablet OGT SCH ×2 (07:58→20:48)
[2019-08-03] MEDS: lactobacillus rhamnosus 10,000 MMU CELLS/CAPSULE OGT SCH ×2 (07:58→20:48)
[2019-08-03] MEDS: furosemide 40mg/4ml inj IV SCH ×2 (07:59→20:48)
[2019-08-03] MEDS: pantoprazole 40 MG vial IV SCH (07:59)
[2019-08-03] MEDS: K, MAG and/or Phos replacement - Verify level? MC SCH (08:00)
[2019-08-03] MEDS: enoxaparin 40mg/0.4ml syringe SUBCUT SCH (08:01)
[2019-08-03] MEDS: levoFLOXACIN-Levaquin 500mg/D5 100 ML IV SCH (08:01)
[2019-08-03] MEDS: morphine 2 MG/ML inj. syringe IV PRN ×3 (08:18→20:28)
[2019-08-03] MEDS: metroNIDAZOLE-Flagyl 500mg/NS 100 ML IV SCH ×2 (09:40→20:44)
[2019-08-03] MEDS: vancomycin/NS 1 GM ADD-VANTAGE 250 ML IV SCH ×2 (10:58→16:24)
[2019-08-03 11:00] VITALS: BP 126/70
--- NOTE | 2019-08-03 11:34 | NUR ---
Orders to DC norepinephrine and lacri-lube per Dr. Mackey.
--- NOTE | 2019-08-03 11:48 | NUR ---
Orders to DC bhardwaj catheter put in per Dr. Mackey.
[2019-08-03] MEDS: insulin Lispro (HumaLOG) vial - multi-dose SQ SCH (12:37)
--- NOTE | 2019-08-03 14:15 | NUR ---
Pt's bhardwaj cath removed, Pt tolerate well. 10ml of saline removed from from balloon.
[2019-08-03 15:00] VITALS: BP 137/69
--- NOTE | 2019-08-03 17:31 | NUR ---
Patient ambulated 300ft with front wheel walker
--- NOTE | 2019-08-03 18:05 | NUR ---
Patient's IV alarming in the middle of report. Went to the patient's room to assess the IV and the patient was touching the IV pump. I asked the patient to please not touch the pump because that is a safety issue, and the patient got agitated with me and told me that I needed to fix it then. Addendum: 08/03/19 at 1822 by Neelima Coley RN I then fixed the IV pump and educated the patient on the importance of not touching the IV pump.
[2019-08-03 18:30] VITALS: BP 139/74
--- NOTE | 2019-08-03 18:30 | NUR ---
Problems reprioritized. Patient report given, questions answered & plan of care reviewed with SERGEY Doss. Patient stable at transfer of care.
--- NOTE | 2019-08-03 18:36 | NUR ---
received report from Candi RN
[2019-08-03] MEDS: quetiapine 100mg tablet PO SCH (20:48)
[2019-08-03 22:00] VITALS: BP 117/71
[2019-08-03] MEDS: insulin glargine (Lantus) pen - multi-dose SQ SCH (22:06)
[2019-08-04] MEDS: morphine 2 MG/ML inj. syringe IV PRN ×4 (00:35→23:34)
[2019-08-04] MEDS: vancomycin/NS 1 GM ADD-VANTAGE 250 ML IV SCH ×3 (00:45→17:19)
[2019-08-04] MEDS: methylPREDNISolone sod succ/PF 40mg inj. IV SCH ×4 (01:52→20:28)
[2019-08-04] MEDS: ipratropium/albuterol 3ml nebule NEB SCH ×6 (03:17→22:55)
--- NOTE | 2019-08-04 06:10 | NUR ---
gave report to SERGEY Ortez
--- NOTE | 2019-08-04 06:57 | NUR ---
Patient in room U 3014. I have received report from SERGEY Doss and had the opportunity to ask questions and assume patient care. Patient awake and sitting up at the side of the bed.
[2019-08-04] MEDS: K, MAG and/or Phos replacement - Verify level? MC SCH (08:00)
[2019-08-04] MEDS: methylnaltrexone br 12mg/0.6ml inj***SubQ only SQ SCH (08:00)
--- NOTE | 2019-08-04 08:13 | NUR ---
Patient refusd 0700 vitals to be done.
[2019-08-04] MEDS: pantoprazole 40 MG vial IV SCH (08:23)
[2019-08-04] MEDS: furosemide 40mg/4ml inj IV SCH ×2 (08:24→20:27)
[2019-08-04] MEDS: lactobacillus rhamnosus 10,000 MMU CELLS/CAPSULE OGT SCH ×2 (08:24→20:27)
[2019-08-04] MEDS: enoxaparin 40mg/0.4ml syringe SUBCUT SCH (08:24)
[2019-08-04] MEDS: topiramate 25mg tablet OGT SCH ×2 (08:24→20:27)
[2019-08-04] MEDS: levoFLOXACIN-Levaquin 500mg/D5 100 ML IV SCH (08:25)
[2019-08-04] MEDS ORDERED: VANCOMYCIN LEVEL IV ONE (08:30)
[2019-08-04] MEDS: insulin Lispro (HumaLOG) vial - multi-dose SQ SCH (08:45)
[2019-08-04 08:53] LABS: BASOPHILS % (AUTO) 0.3 % (0-1); EOSINOPHILS % (AUTO) 0.1 % (0-6); HEMATOCRIT 43.6 % (42.0-52.0); HEMOGLOBIN 14.3 g/dl (14.0-17.9); LYMPHOCYTES # (AUTO) 0.2 X10'3 (1.1-4.8); MEAN CORPUSCULAR HEMOGLOBIN 31.7 PG (27.0-31.0); MEAN CORPUSCULAR HGB CONC 32.8 g/dL (33.0-36.5); MEAN CORPUSCULAR VOLUME 96.5 FL (78-98); MEAN PLATELET VOLUME 8.5 FL (7.4-10.4); MONOCYTES # (AUTO) 0.7 X10'3 (0-0.9); MONOCYTES % (AUTO) 6.4 % (2-12); NEUTROPHILS # (AUTO) 9.5 X10'3 (1.8-7.7); NEUTROPHILS % (AUTO) 91.2 % (42-75); PLATELET COUNT 281 X10'3 (140-440); RED BLOOD COUNT 4.52 X10'6 (4.70-6.10); RED CELL DISTRIBUTION WIDTH 15.7 % (11.5-14.5); WHITE BLOOD COUNT 10.4 X10'3 (4.5-11.0)
[2019-08-04 09:20] LABS: ALANINE AMINOTRANSFERASE 52 U/L (12-78); ALBUMIN 3.3 G/DL (3.4-5.0); ALBUMIN/GLOBULIN RATIO 1.1 (1.1-1.5); ALKALINE PHOSPHATASE 44 IU/L (46-116); ANION GAP 4 (8-16); BILIRUBIN,TOTAL 1.2 MG/DL (0.1-1.0); BLOOD UREA NITROGEN 41 MG/DL (7-18); BUN/CREATININE RATIO 62.1 (5.4-32.0); CALCIUM 8.4 MG/DL (8.5-10.1); CHLORIDE 100 MMOL/L (99-107); CREATININE 0.66 MG/DL (0.60-1.10); GLUCOSE 215 MG/DL (70-104); MAGNESIUM 2.1 MG/DL (1.5-2.4); SODIUM 140 MMOL/L (135-145); TOTAL CARBON DIOXIDE 35.6 MMOL/L (24-32); TOTAL PROTEIN 6.2 G/DL (6.4-8.2); VANCOMYCIN,TROUGH 16.7 UG/ML (6.0-14.0); eGFR > 90 ML/MIN
[2019-08-04 09:21] LABS: ASPARTATE AMINO TRANSFERASE 27 U/L (10-37); PHOSPHORUS 4.1 MG/DL (2.3-4.5)
[2019-08-04 09:22] LABS: POTASSIUM 4.1 MMOL/L (3.5-5.1)
--- NOTE | 2019-08-04 10:06 | NUR ---
Paged Dr. Mackey regarding patient wanting to leave AMA. PAGER ID: [phone] MESSAGE: [phone]. German Thomas. Patient would like to leave AMA. Thank you. Neelima RINCON x [phone]
[2019-08-04] MEDS: normal saline 1000ml 1,000 ML IV SCH (10:20)
--- NOTE | 2019-08-04 10:50 | NUR ---
Orders to stop daily ABGs put in per Dr. Mackey.
[2019-08-04 11:00] VITALS: BP 128/60
[2019-08-04] MEDS: metroNIDAZOLE-Flagyl 500mg/NS 100 ML IV SCH ×2 (11:04→20:27)
--- NOTE | 2019-08-04 13:13 | NUR ---
Patient started to ambulate without asking for assistance. Patient was informed that if he wanted to get up and go for a walk around the unit that he would need to ask for assistance. Patient didn't ask for assistance and ambulated without oxygen. Patient was then instructed on needing oxygen to ambulate, patient got agitated and didn't want to ambulate any more.
[2019-08-04 15:00] VITALS: BP 131/70
[2019-08-04] MEDS ORDERED: methylPREDNISolone sod succ/PF 40mg inj. IV SCH (15:10)
[2019-08-04 18:00] VITALS: BP 126/67
--- NOTE | 2019-08-04 18:19 | NUR ---
Patient in room PCU 3014. I have received report from Neelima RINCON and had the opportunity to ask questions and assume patient care.
--- NOTE | 2019-08-04 18:22 | NUR ---
Problems reprioritized. Patient report given, questions answered & plan of care reviewed with SERGEY Montesinos. Patient stable at transfer of care.
[2019-08-04] MEDS: quetiapine 100mg tablet PO SCH (20:44)
[2019-08-04] MEDS: insulin glargine (Lantus) pen - multi-dose SQ SCH (20:54)
--- NOTE | 2019-08-04 22:00 | NUR ---
pt refused 2200 VS, pt educated about refusing care and necessity of VS.
[2019-08-05] MEDS: vancomycin/NS 1 GM ADD-VANTAGE 250 ML IV SCH ×3 (01:35→09:00)
--- NOTE | 2019-08-05 02:00 | NUR ---
pt refused 0200 VS, pt again educated about refusing care and necessity of VS.
[2019-08-05] MEDS: ipratropium/albuterol 3ml nebule NEB SCH ×6 (02:55→23:11)
--- NOTE | 2019-08-05 05:40 | NUR ---
pt noncompliant with care pt refusing to have morning labs drawn, states he will be getting his labs drawn at chemo in [place], pt states he does not want to "double up" on labs. Pt continues to have tangental thoughts, pt being very difficult and resistive. Attempted to educate patient about necessity of morning labs and compliance with care, pt refused education and started to become hostile.
[2019-08-05 06:00] VITALS: BP 121/62
--- NOTE | 2019-08-05 06:23 | NUR ---
Problems reprioritized. Patient report given, questions answered & plan of care reviewed with Marilyn RINCON.
--- NOTE | 2019-08-05 07:16 | NUR ---
patient is refusing accuchecks for DMII, states he is done with getting poked and blood being taken from him, primary RN notified and aware.
[2019-08-05] MEDS: methylPREDNISolone sod succ/PF 40mg inj. IV SCH ×2 (07:58→20:08)
[2019-08-05] MEDS: metroNIDAZOLE 500mg tablet PO SCH ×2 (07:58→20:08)
[2019-08-05] MEDS: lactobacillus rhamnosus 10,000 MMU CELLS/CAPSULE OGT SCH ×2 (07:58→20:08)
[2019-08-05] MEDS: topiramate 25mg tablet OGT SCH ×2 (07:58→20:08)
[2019-08-05] MEDS: furosemide 40mg/4ml inj IV SCH ×2 (07:58→11:30)
[2019-08-05] MEDS: enoxaparin 40mg/0.4ml syringe SUBCUT SCH (07:59)
[2019-08-05] MEDS: K, MAG and/or Phos replacement - Verify level? MC SCH (08:00)
[2019-08-05] MEDS: morphine 2 MG/ML inj. syringe IV PRN (08:05)
--- NOTE | 2019-08-05 10:10 | NUR ---
Reassessment: Patient's wt is -14.3 kg since admit. Weight change is likely r/t fluid as pt with overall negative fluid balance since admit with -7,468 mL fluid balance over the last five days per I&O and receiving Lasix. Pt continues on mechanical soft diet documented with 100% PO intake meeting nutrient needs. D/w dietary to send double protein TID for satiety. LBM 08/02. Per med list pt refused Relistor 08/03. Pt resistive to care and impulsive per physical assessment and refusing lab draws and accuchecks at this time per RN notes. D/w dietary to send prunes with next meal to assist with bowel regularity. Will continue to follow and monitor need for further nutrition intervention. Rec: 1. advance diet as medically indicated to heart healthy/mechanical soft 2. Double eggs q breakfast; double meat BIDLD 3. routine bowel care 4. wt per rx Addendum: 08/05/19 at [address] Amended: Links added.
--- NOTE | 2019-08-05 10:13 | NUR ---
PATIENT REFUSING MORNING BLOOD SUGAR CHECK REFUSES TO BE HOOKED UP TO THE IV POLE FOR IV VANCO CHARGE NURSE BRYANT MADE AWARE
[2019-08-05 11:00] VITALS: BP 119/60
[2019-08-05] MEDS: levoFLOXACIN 500mg tablet PO SCH (11:00)
--- NOTE | 2019-08-05 12:18 | NUR ---
PT REFUSES BLOOD SUGAR CHECKS
--- NOTE | 2019-08-05 14:00 | NUR ---
PATIENT FALL- FOUND SITTING ON THE GROUND IN HIS ROOM PT SAYS HE FELL WHILE WALKING AND BUMPED HIS HEAD ON THE O2 TANK, "BUT NOT TOO BAD" PT AGITATED AND CUSSING AT STAFF CALLED DR. MCCLURE TO INFORM HER OF FALL, INSTRUCTED BY MD TO WATCH THE PATIENT AND NOTIFY HER OF ANY CHANGES IN MENTATION OR FLUCTUATIONS IN VITALS PT IMMEDIATELY BECAME AGITATED AND REFUSED VITALS TO BE TAKEN, REFUSED TO ALLOW STAFF TO ASSIST HIM BACK TO BED CODE TIFFANI CALLED, PATIENT GOT BACK TO BED WILL CONTINUE TO MONITOR.
[2019-08-05 14:30] VITALS: BP 126/77
--- NOTE | 2019-08-05 15:10 | NUR ---
PT DEMANDING TO SEE DOCTOR PT OUT AT NURSE'S STATION SAYS "I ONLY SPEAK TO DOCTORS NOW" PAGED DR. MCCLURE TO COME SEE PATIENT WHEN SHE'S ABLE
--- NOTE | 2019-08-05 15:15 | NUR ---
RECEIVED CALL BACK FROM DR. MCCLURE ORDER FOR CT OF HEAD WITHOUT CONTRAST SAYS REGARDING THE IMITREX- SHE WILL NOT ORDER THE 100-200MG OF THE MED PATIENT IS REQUESTING, ONLY 25MG DAILY ORDERED.
--- NOTE | 2019-08-05 15:35 | NUR ---
PT ORDERS RN OUT OF THE ROOM CHARGE NURSE MADE AWARE
--- NOTE | 2019-08-05 15:40 | NUR ---
CT HERE TO TAKE PATIENT DOWN FOR SCAN PATIENT SAYS 'I WILL THINK ABOUT IT' WILL AWAIT HIS DECISION
--- NOTE | 2019-08-05 16:16 | NUR ---
PT REFUSING TO HAVE BATTERY CHANGED IN TELE BOX ALSO WON'T ALLOW LEADS TO BE CHANGED SO IT'S DIFFICULT TO READ RHYTHM
--- NOTE | 2019-08-05 18:05 | NUR ---
Problems reprioritized. Patient report given, questions answered & plan of care reviewed with SERGEY PAPPAS.
--- NOTE | 2019-08-05 18:11 | NUR ---
Patient in room PCU 3014. I have received report from Marilyn RINCON and had the opportunity to ask questions and assume patient care.
--- NOTE | 2019-08-05 18:37 | NUR ---
pt hostile, rude, aggravated pt refusing all care, pt was offered help when ambulating pt refused help, pt offered orientation to call light and asking for help, pt deliberately refused to use call light system, pt refusing all education and staff input, pt noncompliant.
--- NOTE | 2019-08-05 19:22 | NUR ---
pt refusing physical assessment, pt agrees to take evening medications, attempted to provide education about necessity of physical assessment pt refused education.
[2019-08-05] MEDS: quetiapine 100mg tablet PO SCH (20:12)
[2019-08-05] MEDS: insulin glargine (Lantus) pen - multi-dose SQ SCH (20:25)
--- NOTE | 2019-08-05 23:32 | NUR ---
pt being very hostile towards staff RT giving treatment pt not compliant with pulse Ox check post treatment, continues to be non compliant with other care.
[2019-08-06] MEDS: ipratropium/albuterol 3ml nebule NEB SCH ×2 (03:02→07:32)
--- NOTE | 2019-08-06 04:11 | NUR ---
Page Sent PAGER ID: [phone] MESSAGE: [phone], German Thomas 68 y/o male admitted 07/26 acute resp fail COPD exac. rhythm changed from sinus rhythm to A. Fib HR 120's-130's. per pt and medical record no Hx of Tamela Montesinos [id number]
[2019-08-06] MEDS ORDERED: diltiazem 5mg/ml 5ml inj. IV ONE (04:20)
--- NOTE | 2019-08-06 04:23 | NUR ---
spoke w/ Dr. Hale regarding pt rhythm change too A. Fib, Dr. Hale ordered Cardizem 10mg IV once now.
[2019-08-06 04:34] VITALS: BP 129/62
--- NOTE | 2019-08-06 04:56 | NUR ---
pt VS taken pt was given cardizem 10mg IV, pt removed monitor worker and will not allow staff to replace monitor. Attempted to educate pt why monitor is necessary, pt refused education continues to be hostile to staff, and continues to have delusions of mistreatment.
--- NOTE | 2019-08-06 05:18 | NUR ---
pt expressed leaving against medical advice, when pt presented with the form he retracted his wanting to leave AMA and stood in doorway of room yelling, swearing, and threatening staff, pt continues to have delusion of mistreatment, security called to come talk to pt regarding his behavior.
[2019-08-06 06:00] VITALS: BP 95/52
--- NOTE | 2019-08-06 06:30 | NUR ---
Patient in room PCU 3014. I have received report from SERGEY PAPPAS and had the opportunity to ask questions and assume patient care.
--- NOTE | 2019-08-06 06:33 | NUR ---
Problems reprioritized. Patient report given, questions answered & plan of care reviewed with Sarkis RN.
--- NOTE | 2019-08-06 06:59 | NUR ---
PT REFUSED AM BLOOD GLUCOSE CHECK, SERGEY SINHA AWARE
[2019-08-06] MEDS ORDERED: pantoprazole 40mg Tablet.DR PO SCH (07:30)
[2019-08-06] MEDS: enoxaparin 40mg/0.4ml syringe SUBCUT SCH (07:32)
[2019-08-06] MEDS: lactobacillus rhamnosus 10,000 MMU CELLS/CAPSULE OGT SCH (07:39)
[2019-08-06] MEDS: topiramate 25mg tablet OGT SCH (07:39)
[2019-08-06] MEDS: methylPREDNISolone sod succ/PF 40mg inj. IV SCH (07:39)
[2019-08-06] MEDS: metroNIDAZOLE 500mg tablet PO SCH (07:40)
[2019-08-06] MEDS: methylnaltrexone br 12mg/0.6ml inj***SubQ only SQ SCH (07:41)
[2019-08-06] MEDS: morphine 2 MG/ML inj. syringe IV PRN (07:54)
--- NOTE | 2019-08-06 08:00 | NUR ---
REFUSED ACCUCHECKS, LAB, PHYSICAL ASSESSMENT. REFUSED TEACHING, X MEDS.
--- NOTE | 2019-08-06 08:30 | NUR ---
PAGER ID: [phone] MESSAGE: [phone]: LUCY MIGUEL. Pt would like to discharge and states this is an agreement between you and him. Thanks, Julieth Spears RN
--- NOTE | 2019-08-06 09:04 | NUR ---
PAGER ID: [phone] MESSAGE: [phone]: LUCY MIGUEL. Pt would like to speak with you about being discharged. Thanks Julieth Spears RN [phone]
[2019-08-06] MEDS ORDERED: LEVO500T89 PO (10:08)
[2019-08-06] MEDS ORDERED: IPRA3AMP9 NEB (10:08)
[2019-08-06] MEDS ORDERED: PRED10TA23 PO (10:08)
[2019-08-06] MEDS ORDERED: FURO-150 PO (10:39)
[2019-08-06] MEDS ORDERED: POTA10TA36 PO (10:42)
[2019-08-06] MEDS: levoFLOXACIN 500mg tablet PO SCH (11:06)
== END 2019-08-06 11:06 | disposition home or self-care (01) | DRG 207 ==
LOC: ER 19:31 → ED HOLD 07-27 00:15 → UNDOADMIN 07-27 00:50 → EDBEDREQ 07-27 02:09 → CICU 2S 07-27 03:36 → ED HOLD 07-27 03:36 → PCU 3S 08-02 17:13
PROVIDERS: ADMIT Internal Medicine Critical Care Medicine; ATTEND Internal Medicine Critical Care Medicine
PROC: 5A09357 Assistance with Respiratory Ventilation, Less than 24 Consecutive Hours, Continuous Positive Airway Pressure (ICD-10-PCS; principal; 2019-07-26)
PROC: B32T1ZZ Computerized Tomography (CT Scan) of Left Pulmonary Artery using Low Osmolar Contrast (ICD-10-PCS; 2019-07-26)
PROC: B3201ZZ Computerized Tomography (CT Scan) of Thoracic Aorta using Low Osmolar Contrast (ICD-10-PCS; 2019-07-26)
PROC: B32S1ZZ Computerized Tomography (CT Scan) of Right Pulmonary Artery using Low Osmolar Contrast (ICD-10-PCS; 2019-07-26)
PROC: 5A1955Z Respiratory Ventilation, Greater than 96 Consecutive Hours (ICD-10-PCS; 2019-07-27)
PROC: 0BH17EZ Insertion of Endotracheal Airway into Trachea, Via Natural or Artificial Opening (ICD-10-PCS; 2019-07-27)
DX: J18.9 Pneumonia, unspecified organism (principal); I50.33 Acute on chronic diastolic (congestive) heart failure; J96.22 Acute and chronic respiratory failure with hypercapnia; J44.1 Chronic obstructive pulmonary disease with (acute) exacerbation; G43.909 Migraine, unspecified, not intractable, without status migrainosus; C44.90 Unspecified malignant neoplasm of skin, unspecified; F12.90 Cannabis use, unspecified, uncomplicated; M81.0 Age-related osteoporosis without current pathological fracture; Z87.891 Personal history of nicotine dependence
CPT/HCPCS: 31500; 36415; 36556; 36600; 70450; 71045; 71275; 80053; 80202; 82803; 82948; 83036; 83605; 83735; 83880; 84100; 84132; 84134; 84145; 84484; 85018; 85025; 85027; 85610; 85730; 87040; 87070; 87081; 93005; 93306; 94002; 94003; 94640; 94660; 94760; 97110; 97116; 97161; 97530; 99291; C9113; G0378; J0171; J1650; J1815; J1940; J1956; J2060; J2212; J2270; J2920; J2930; J3010; J3370; J3475; J3480; J3490; J7030; J7060; Q2037; Q9967